=== PATIENT | male | born 1945 | race Caucasian/White ===

== ENCOUNTER 2017-03-22 22:59 | Inpatient (IN) | payer MEDICARE ==
[~2017-03-22] VITALS: Ht 172.7 cm; Wt 91.4 kg
[~2017-03-22 22:59] MED LIST: ALDACTONE25 MG PO; ASPIRIN EC LOW81 MG PO; ASPIRIN325 MG PO; ATENOLOL25 MG PO; ATENOLOL50 MG PO; CELEXA20 M1 PO; CITALOPRAM20 MG PO; COREG6.25 MG PO; COUMADIN3 MG PO; COUMADIN4 MG PO; FUROSEMIDE20 MG PO; K-DUR/KLOR-CON20 MEQ PO; K-TAB20 MEQ; LASIX 20 MG20 MG/TAB PO; LORTAB 5/3255 MG PO; RANITIDINE150 M1 PO; WALKER
--- NOTE | 2017-03-22 23:12 | NUR ---
SR GAY AT BEDSIDE.
[2017-03-22] MEDS ORDERED: WARFARIN3 MG PO (23:18)
--- NOTE | 2017-03-22 23:20 | NUR ---
FAMILY AT BEDSIDE.
--- NOTE | 2017-03-22 23:25 | NUR ---
PT AND FAMILY RELATED HISTORY OF AFIB.
--- NOTE | 2017-03-22 23:40 | NUR ---
VESSEL SCRAPPER CALLED FOR MELANIX.
[2017-03-23] VITALS (7 sets, daily range): BP systolic 115–159; BP diastolic 66–91
[2017-03-23 00:05] LABS: HEMATOCRIT 47.5 % (39.0-50.0); IMMATURE GRANULOCYTES 0.4 % (0.0-1.0); MEAN CELL VOLUME 94.6 fL CALC (80.0-100.0); MEAN CORPUSCULAR HGB 31.9 pG CALC (26.0-32.0); MEAN CORPUSCULAR HGB CONC 33.7 g/L CALC (32.0-36.0); NEUT# 5.3 thou/uL (1.82-7.42); RED BLOOD COUNT 5.02 mill/uL (4.70-6.10); RED CELL DISTRI WIDTH 13.2 % (11.5-15.5)
[2017-03-23 00:10] LABS: ALBUMIN 4.2 g/dL (3.2-5.0); ALKALINE PHOSPHATASE 101 u/l (38-126); ANION GAP 15 (6-22 (CALC)); BILIRUBIN, TOTAL 1.4 mg/dL (0.0-1.4); BUN 14 mg/dL (8-23); BUN/CREATININE RATIO 11 (12-20 (CALC)); CARBON DIOXIDE 28 mmol/l (22-30); CHLORIDE 109 mmol/l (95-108); CREATININE 1.3 mg/dL (0.7-1.3); GFR 54 ML/MIN (>=60 (CALC)); GFR FOR AFR.AMER. > 60 ML/MIN (>=60 (CALC)); GLUCOSE 98 mg/dL (82-115); POTASSIUM 4.1 mmol/l (3.5-5.1); SGOT/AST 18 u/l (19-48); SGPT/ALT 26 u/l (11-66); SODIUM 147 mmol/l (137-146); TOTAL PROTEIN 7.1 g/dL (6.3-8.2)
[2017-03-23 00:21] LABS: ACT PARTIAL THROMBO TIME 27.2 SECONDS (20.0-32.5); PROTHROMBIN TIME 11.2 SECONDS (9.0-12.5)
[2017-03-23 00:22] LABS: MYOGLOBIN 78 ng/mL (0 - 121)
--- NOTE | 2017-03-23 00:53 | NUR ---
PT UNABLE TO URINATE AT THIS TIME.
--- NOTE | 2017-03-23 02:30 | NUR ---
PT STOOD AT SIDE OF BED TO URINATE. 50CC DARK URINE VOIDED.
[2017-03-23 02:56] LABS: URINE BILIRUBIN - DIPSTICK NEGATIVE (NEGATIVE); URINE BLOOD DIPSTICK SMALL (NEGATIVE); URINE COLOR YELLOW; URINE GLUCOSE - DIPSTICK NEGATIVE (NEGATIVE); URINE KETONE NEGATIVE (NEGATIVE); URINE LEUK ESTERASE NEGATIVE (NEGATIVE); URINE NITRITE - DIPSTICK NEGATIVE (Negative); URINE PROTEIN - DIPSTICK NEGATIVE (NEG-TRACE); URINE SPECIFIC GRAVITY >=1.030; URINE UROBILINOGEN - DIPSTICK 0.2 E.U./dL (0.2)
--- NOTE | 2017-03-23 03:00 | NUR ---
PT INFORMED OF ADMISSION.
[2017-03-23 03:18] LABS: URINE BACTERIA FEW hpf; URINE CLARITY CLEAR
--- NOTE | 2017-03-23 03:30 | NUR ---
REPORT CALLED TO
--- NOTE | 2017-03-23 03:40 | NUR ---
PT TO 280 WITH RN ON TELE.
--- NOTE | 2017-03-23 05:32 | NUR ---
PATIENT ADMIITED FROM ER VIA STRETCHER WITH ER STAFF IN ATTENDANCE. PATIENT MAX ASSIST TO TRANSFER TO BED. PATIENT IS AWAKE ALERT AND ORIENTEDX3. PATIENT IS SLOW IN HIS VERBAL RESPONSES. PATIENT WITH H/O CVA WITH LEFT SIDED WEAKNESS. PATIENT ADMITTED FOR A-FIB AND CHF. PATIENT DENIES ANY ALLERGIES AND STATES THAT HE LIVES WITH HIS DAUGHTER SAMIR. HAS NOT BEEN TAKING MEDS FOR OVER A MONTH-RX RAN OUT. PATIENT WITH HEP LOCK TO LEFT AC AND APPEARS HEALTHY. RIGHT LE IS RED AND SWOLLEN. STATES THAT HIS LAST BM WAS ON WEDNESDAY 03/21 AND WEARS BREIF FOR OCC URINE ACCIDENTS. LUNGS ARE CLEAR. AND HR IS VERY IRREGULAR. TELE MONITOR IN PLACE. PATIENT ORIENTED TO ROOM AND SURROUNDINGS. INSTRUCTED ON USE OF NURSE CALL LIGHT AND TV REMOTE. CALLLIGHT IN REACH. WILL CONT TO MONITOR.
--- NOTE | 2017-03-23 05:41 | NUR ---
PATIENT ASSISTED TO BR WITH SHUFFLING GAIT AND ASSIST OF STAFF. VOIDED 125CC OF HERSON URINE. ASSISTED BACK TO BED. BED ALARM IN PLACE FOR PATIENT SAFETY. SAFETY PRECAUTIONS REINFORCED. CALL LIGHT IN REACH. WILL CONT TO MONITOR.
--- NOTE | 2017-03-23 08:00 | NUR ---
PT AROUSED EASILY TO VERBAL STIMULI; A/O X3; DENIES PAIN; ASSISTED WITH BREAKFAST SET UP; CALL LOWE WITHIN REACH; WILL CONTINUE TO MONITOR.
[2017-03-23 09:48] LABS: CHOLESTEROL HDL RATIO 5.4 (<4.4 (CALC))
[2017-03-23 10:05] LABS: INTERNATIONAL NORMALIZED RATIO 1.1 RATIO (0.7-1.3); PROTHROMBIN TIME 11.6 SECONDS (9.0-12.5)
--- NOTE | 2017-03-23 12:30 | NUR ---
PT'S DAUGHTER CAME TO GET THIS NURSE; STATES PT IS HAVING SOB; PT DENIES SOB AT THIS TIME; PT WAS ASSISTED TO BED BY DAUGHTER AND HAD "TROUBLE CATCHING MY BREATH" BREATHING TECHNIQUES DISCUSSED WITH PT. IRENE MENENDEZ, IN TO DISCUSS PLAN OF CARE; CALL LOWE WITHIN REACH; WILL CONTINUE TO MONITOR.
--- NOTE | 2017-03-23 17:00 | NUR ---
DR. ELLIS IN TO SEE PT
--- NOTE | 2017-03-23 18:15 | NUR ---
PT TOLERATING DINNER WELL; NO COMPLAINTS VOICED; CALL LOWE WITHIN REACH; WILL CONTINUE TO MONITOR.
--- NOTE | 2017-03-23 19:30 | NUR ---
PATIENT RESTING IN BED WITH DAUGHTER AT BEDSIDE. PATIENT AWAKE ALERT AND ORIENTEDX3. CONT TO BE SLOW WITH VERBAL RESPONCES. NO COMPLAINS AT THIS TIME. HEP LOCK TO LEFT AC INTACT AND APPEARS HEALTHY AT THIS TIME. CALL LIGHT IN REACH. SAFETY PRECAUTIONS REINFORCED. WILL CONT TO MONITOR.
--- NOTE | 2017-03-24 00:12 | NUR ---
PATIENT APPEARS SLEEPING AT THIS TIME WITH EYES CLOSED AND HOB ELEVATED. CALL LIGHT IN REACH. WILL CONT TO MONITOR.
--- NOTE | 2017-03-24 04:29 | NUR ---
PATIENT ASSISTED TO BR USE CANE-SLOW SHUFFLING UNSTEADY GAIT. VOIDED 100CC OF HERSON URINE. SMALL BM STAIN OF BREIF-PERIANAL CARE WITH SOAP AND WATER DONE. NO SKIN ISSUES AT THIS TIME. ASSISTED BACK TO BED AND ASSITED WITH POSITIONING. SOB WITH EXHERSION. NO COMPLAINTS. CALL LIGHT IN REACH. WILL CONT TO MONITOR.
[2017-03-24 05:24] VITALS: BP 113/74
[2017-03-24 05:33] LABS: HEMATOCRIT 42.2 % (39.0-50.0); HEMOGLOBIN 14.3 g/dl (14.0-18.0); IMMATURE GRANULOCYTES 0.5 % (0.0-1.0); MEAN CELL VOLUME 93.6 fL CALC (80.0-100.0); MEAN CORPUSCULAR HGB 31.7 pG CALC (26.0-32.0); MEAN CORPUSCULAR HGB CONC 33.9 g/L CALC (32.0-36.0); NEUT# 4.07 thou/uL (1.82-7.42); RED BLOOD COUNT 4.51 mill/uL (4.70-6.10); RED CELL DISTRI WIDTH 13.1 % (11.5-15.5)
[2017-03-24 05:55] LABS: ANION GAP 13 (6-22 (CALC)); BUN 14 mg/dL (8-23); BUN/CREATININE RATIO 11 (12-20 (CALC)); CALCIUM 8.5 mg/dL (8.4-10.2); CARBON DIOXIDE 23 mmol/l (22-30); CHLORIDE 112 mmol/l (95-108); CREATININE 1.3 mg/dL (0.7-1.3); GFR 54 ML/MIN (>=60 (CALC)); GFR FOR AFR.AMER. > 60 ML/MIN (>=60 (CALC)); GLUCOSE 92 mg/dL (82-115); POTASSIUM 4.2 mmol/l (3.5-5.1); SODIUM 143 mmol/l (137-146)
[2017-03-24 06:19] LABS: INTERNATIONAL NORMALIZED RATIO 1.1 RATIO (0.7-1.3); PROTHROMBIN TIME 11.9 SECONDS (9.0-12.5)
--- NOTE | 2017-03-24 07:40 | NUR ---
REPORT RECEIVED FROM NIGHT NURSE, UPON ENTERING ROOM PT.IS FOUND SITTING IN RECLINER W/LAW FIRM ADMINISTRATOR ASSISTING HIM TO REPOSTION. C/O SHORTNESS OF BREATH UPON AMBULATION. PT.V/S ASSESSED AND O2 SAT 90%, PT.PLACED ON O2@2L. CALL LIGHT IS W/IN REACH, DENIES ANY OTHER NEEDS AT THIS TIME.
[2017-03-24 08:00] VITALS: BP 132/87
--- NOTE | 2017-03-24 10:18 | NUR ---
PT.MEDICATED ORDERS PROVIDE, PT.ASSESSED LOWER LUNGS DIM/UPPER CLEAR, NEURO'S INTACT, PT.REPORTS LAST BM "LAST WEDNESDAY I THINK," LOC TO SELF, , LOCATION, BUT NOT YEAR/DATE. PT.HAS ULCER WOUND TO BACK OF LEFT CALF, SHON HARVEY AND ARE IN ROOM TO ASSESS AND DISCUSS POC W/PT. I WILL F/UP FURTHER WITH WOUND PICTURES.
[2017-03-24 11:20] VITALS: BP 136/87
[2017-03-24 15:32] VITALS: BP 135/92
--- NOTE | 2017-03-24 17:44 | NUR ---
WALKING BY ROOM I HEAR DAUGHTER YELLING AT PT. I ENTER THE ROOM, SHE IS OUTSIDE THE BATHROOM DOOR WITH DOOR OPEN TALKING WITH RAISED VOICE TO PT TO "STOP PEEING ON YOURSELF AND FLOOR DAD." STATED, "WHAT IS HE DOING IN THERE BY HIMSELF?" SHE REPLIED, "I WAS HELPING HIM." I ENTERED THE RESTROOM, PT.WAS STANDING OVER TOILET NOT MOVING, URINE WAS ON FLOOR ALL AROUND PT, HIS GOWN HAD URINE ON IT. I PROCEEDED TO HELP HIM FINISH, ASSISTED HIM TO SHOWER SEAT, PT.WAS CLEANED OF URINE, NEW GOWN, SOCKS AND ASSISTED BACK TO SIDE OF BED TO SIT UP AND EAT HIS SUPPER THAT JUST ARRIVED. DAUGHTER STATED, "HE IS SO STUBBORN." DAUGHTER LEFT AT BS
[2017-03-24 18:50] VITALS: BP 134/81
--- NOTE | 2017-03-24 20:00 | NUR ---
PATIENT RESTING IN BED AT THIS TIME WITH HOB ELEVATED-ALERT AND ORIENTEDX3. PATIENT WITH NO COMPLAINTS AT THIS TIME. NEEDS ASSISTANCE TO GO TO THE BR-UNSTEADY ON FEET WITH WALKER. VOIDING QS YELLOW URINE IN URINAL. HEP LOCK TO LEFT FOREARM-SITE APPEARS HEALTHY AT THIS TIME. SAFETY PRECAUTIONS REINFORCED. CALL LIGHT IN REACH. WILL CONT TO MONITOR.
[2017-03-24 23:48] VITALS: BP 156/69
--- NOTE | 2017-03-25 | NUR ---
PATIENT APPEARS SLEEPING AT THIS TIME WITH HOB ELEVATED AND EYES CLOSED. CALL LIGHT IN REACH. WILL CONT TO MONITOR.
--- NOTE | 2017-03-25 04:00 | NUR ---
PATIENT APPEARS SLEEPING AT THIS TIME WITH HOB ELEVATED AND EYES CLOSED.CALL LIGHT IN REACH. WILL CONT TO MONITOR.
[2017-03-25 04:45] VITALS: BP 135/76
[2017-03-25 05:46] LABS: HEMATOCRIT 44.6 % (39.0-50.0); HEMOGLOBIN 15.1 g/dl (14.0-18.0); IMMATURE GRANULOCYTES 0.5 % (0.0-1.0); MEAN CELL VOLUME 93.7 fL CALC (80.0-100.0); MEAN CORPUSCULAR HGB 31.7 pG CALC (26.0-32.0); MEAN CORPUSCULAR HGB CONC 33.9 g/L CALC (32.0-36.0); NEUT# 8.73 thou/uL (1.82-7.42); RED BLOOD COUNT 4.76 mill/uL (4.70-6.10); RED CELL DISTRI WIDTH 12.8 % (11.5-15.5)
[2017-03-25 05:58] LABS: INTERNATIONAL NORMALIZED RATIO 1.2 RATIO (0.7-1.3)
[2017-03-25 06:11] LABS: ANION GAP 15 (6-22 (CALC)); BUN 15 mg/dL (8-23); BUN/CREATININE RATIO 14 (12-20 (CALC)); CALCIUM 9.1 mg/dL (8.4-10.2); CARBON DIOXIDE 21 mmol/l (22-30); CHLORIDE 112 mmol/l (95-108); CREATININE 1.1 mg/dL (0.7-1.3); GFR > 60 ML/MIN (>=60 (CALC)); GFR FOR AFR.AMER. > 60 ML/MIN (>=60 (CALC)); GLUCOSE 139 mg/dL (82-115); MAGNESIUM 1.9 mg/dL (1.6-2.3); POTASSIUM 4.6 mmol/l (3.5-5.1); SODIUM 143 mmol/l (137-146)
--- NOTE | 2017-03-25 07:16 | NUR ---
REPORT RECEIVED FROM NIGHT NURSE, PT.IN RECLINER W/BLANKETS COVERING AND FEET ELEVATED. BST IN FRONT W/CALL LIGHT IN PLACE. PT.REPORTS THAT HE SLEPT BETTER LAST NIGHT AND IS AWAITING BREAKFAST. WILL F/UP WITH V/S, AM MEDICATIONS AND ASSESSMENT.
[2017-03-25 07:35] VITALS: BP 105/76
--- NOTE | 2017-03-25 08:37 | NUR ---
ED CALLED REGARDING ELEVATED HR OF 119 - 130'S. NOTIFIED SHON HARVEY AND MEDICATED W/AM MEDICATIONS. WILL MARCIO PT.'S RESPONSE TO MEDICATIONS ADMINISTERED. PT.IS ASYMPTOMATIC, SITTING IN RECLINER EATING BREAKFAST.
[2017-03-25 11:20] VITALS: BP 100/60
--- NOTE | 2017-03-25 13:10 | NUR ---
PT.IS AMBULATING HALLWAY WITH P.T. USING WALKER AND ON O2. P.T. REPORTS THAT UPON BED TRANSFERS ON ROOM AIR O2 SATS DROPPED IN UPPER 70'S.
--- NOTE | 2017-03-25 14:01 | NUR ---
PT WAS SEEN SUPINE ON BED. ABLE TO SIT UP WITH MOD. INDEP. AND VERBAL CUEING. SIT TO STAND WITH WALKER AND MIN A WITH 3 ATTEMPTS. PT WAS UNSTEADY DURING THE FIRST 5 SEC. OF STANDING UP WITH WALKER AND HAD TO BE STABILIZED. PT WAS ABLE TO AMBULATE IN THE HALLWAY ~45 FT. X 2 WITH RW AND CGA. PORTABLE O2 VIA NASAL CANNULA SET AT 3L WAS ALSO USED DURING AMB. PT'S SPO2 REMAINED BETWEEN 97-99% WITH O2. HOWEVER, WHEN PT PERFORMED BED MOB ON ROOM AIR, SPO2 DESATURATED TO 75%. ASSISTED PT BACK TO BED, REATTACHED O2 VIA NASAL CANNULA, SPO2 RETURNED TO 99%. NO ADVERSE RXNS NOTED OR REPORTED. CALL LOWE WITHIN REACH.
[2017-03-25 15:43] VITALS: BP 100/68
[2017-03-25 19:35] VITALS: BP 145/67
--- NOTE | 2017-03-25 20:20 | NUR ---
PT USING CALL LIGHT FOR ASSISTANCE, ASSISTED TO STAND ON SIDE OF BED AND USING URINAL, NOTICED TO BE WEAK, VOIDING 100CC YELLOW URINE, THEN BACK TO BED. A/O X3, RESPIRAITONS EVEN AND UNLAORED. BED ALARM APPLIED TO PREVENT FALL DUE TO WEAKNESS. WILL CONTINUE TO MONITOR. PO FLUIDS IN REACH.
[2017-03-25 23:55] VITALS: BP 124/85
--- NOTE | 2017-03-26 | NUR ---
OOB USING URINAL WITH STANDBY ASSISTANCE, VOIND 100ML YELLOW URINE THEN BACK TO BED. CALL LIGHT IN REACH.
--- NOTE | 2017-03-26 03:00 | NUR ---
RESTING WITH EYES CLOSED, RESPIRATIONS EVEN AND UNLABORED.
[2017-03-26 03:45] VITALS: BP 146/86
[2017-03-26 05:43] LABS: HEMATOCRIT 41.4 % (39.0-50.0); IMMATURE GRANULOCYTES 0.8 % (0.0-1.0); MEAN CELL VOLUME 94.5 fL CALC (80.0-100.0); MEAN CORPUSCULAR HGB CONC 33.8 g/L CALC (32.0-36.0); NEUT# 13.31 thou/uL (1.82-7.42); RED BLOOD COUNT 4.38 mill/uL (4.70-6.10); RED CELL DISTRI WIDTH 13.2 % (11.5-15.5)
[2017-03-26 06:03] LABS: ANION GAP 15 (6-22 (CALC)); BUN 24 mg/dL (8-23); BUN/CREATININE RATIO 19 (12-20 (CALC)); CALCIUM 8.7 mg/dL (8.4-10.2); CARBON DIOXIDE 22 mmol/l (22-30); CHLORIDE 111 mmol/l (95-108); CREATININE 1.3 mg/dL (0.7-1.3); GFR 54 ML/MIN (>=60 (CALC)); GFR FOR AFR.AMER. > 60 ML/MIN (>=60 (CALC)); GLUCOSE 127 mg/dL (82-115); MAGNESIUM 2.1 mg/dL (1.6-2.3); POTASSIUM 4.8 mmol/l (3.5-5.1); SODIUM 144 mmol/l (137-146)
--- NOTE | 2017-03-26 06:20 | NUR ---
OOB TO BATHROOM USING WALKER, SLOW STEADY GAIT. VOIDING IN COMMODE AND PASSING SMALL FORMED BROWN BM. BACK TO BED. CALL LIGHT IN REACH. PO FLUIDS IN REACH.
[2017-03-26 06:43] LABS: INTERNATIONAL NORMALIZED RATIO 1.4 RATIO (0.7-1.3); PROTHROMBIN TIME 16.1 SECONDS (9.0-12.5)
--- NOTE | 2017-03-26 07:00 | NUR ---
SHIFT CHANGE REPORT FROM MELVIN, ELMER AWAKE AND ALERT RESTING IN BED, SPEECH VERY SOFT AND COARSE AND PT MOSTLY USES BODY LANGUAGE TO COMMUNICATE SINGLE WORD RESPONSES. DENIES PAIN AT THIS TIME, TELE MONITOR IN PLACE, CALL LOWE IN REACH.
[2017-03-26 08:54] VITALS: BP 109/63
[2017-03-26 11:20] VITALS: BP 117/77
[2017-03-26] MEDS ORDERED: RANITIDINE150 M1 PO (11:23)
[2017-03-26] MEDS ORDERED: COREG6.25 MG PO (11:23)
[2017-03-26] MEDS ORDERED: ALDACTONE25 MG PO (11:23)
[2017-03-26] MEDS ORDERED: PREDNISONE10 MG PO (11:23)
[2017-03-26] MEDS ORDERED: WARFARIN SODIUM5 MG PO (11:23)
[2017-03-26] MEDS ORDERED: SYNTHROID25 MCG PO (11:23)
[2017-03-26] MEDS ORDERED: CITALOPRAM20 MG PO (11:23)
[2017-03-26] MEDS ORDERED: LIPITOR20 MG PO (11:23)
[2017-03-26] MEDS ORDERED: IPRATROPIU0.5 MG/3 M IN (11:23)
--- NOTE | 2017-03-26 13:59 | NUR ---
SPOKE WITH PT PRIOR TO D/C TO DISCUSS NEW MEDS/CHANGE IN MEDS. DISCUSSED INCREASE IN WARFARIN DOSE, NEW MEDS LIPITOR AND LEVOTHYROXINE, AND POSSIBLE SIDE EFFECTS OF PREDNISONE SUCH INCREASED APPETITE AND INSOMNIA. PT SEEMED DAZED/CONFUSED, BUT SHOOK HIS HEAD YES WHEN I ASKED IF HE UNDERSTOOD. PT SHOOK HIS HEAD NO WHEN I ASKED IF HE HAD ANY FURTHER QUESTIONS.
--- NOTE | 2017-03-26 14:11 | NUR ---
REPORT CALLED TO AKBAR AT [facility]
--- NOTE | 2017-03-26 14:57 | NUR ---
Discharge instructions given. Patient verbalizes understanding of same. Discharged in good condition via Wheelchair to [facility] with family. All belongings sent with pt.
== END 2017-03-26 14:44 | DRG 309 ==
LOC: ED 22:59 → ED-I 03-23 02:05 → ED 03-23 03:13 → MS2 03-23 03:14
PROVIDERS: Emergency Medicine; Nurse Practitioner Family; ADMIT Internal Medicine; ATTEND Internal Medicine
DX: I48.2 Chronic atrial fibrillation (principal); N17.9 Acute kidney failure, unspecified; I11.0 Hypertensive heart disease with heart failure; I50.22 Chronic systolic (congestive) heart failure; J44.1 Chronic obstructive pulmonary disease with (acute) exacerbation; T74.01XA Adult neglect or abandonment, confirmed, initial encounter; I65.21 Occlusion and stenosis of right carotid artery; E86.0 Dehydration; F32.9 Major depressive disorder, single episode, unspecified; R41.3 Other amnesia; E66.9 Obesity, unspecified; E78.5 Hyperlipidemia, unspecified; R79.1 Abnormal coagulation profile; E03.9 Hypothyroidism, unspecified; R53.81 Other malaise; Z87.891 Personal history of nicotine dependence; Z85.819 Personal history of malignant neoplasm of unspecified site of lip, oral cavity, and pharynx; Z86.73 Personal history of transient ischemic attack (TIA), and cerebral infarction without residual deficits; Z91.14 Patient's other noncompliance with medication regimen; Z87.820 Personal history of traumatic brain injury; Z74.01 Bed confinement status; Z68.31 Body mass index [BMI] 31.0-31.9, adult
CPT/HCPCS: J1650

== ENCOUNTER 2017-09-14 14:33 | Emergency (ER) | payer MEDICARE ==
[~2017-09-14] VITALS: Ht 172.7 cm; Wt 90.9 kg
[~2017-09-14 14:33] MED LIST changes: +IPRATROPIU0.5 MG/3 M IN; +LIPITOR20 MG PO; +PREDNISONE10 MG PO; +SYNTHROID25 MCG PO; +WARFARIN SODIUM5 MG PO; +WARFARIN3 MG PO
[2017-09-14 15:51] VITALS: BP 129/84
== END 2017-09-14 15:51 | disposition home or self-care (01) ==
LOC: ED 14:33
DX: S93.491A Sprain of other ligament of right ankle, initial encounter (principal); M25.572 Pain in left ankle and joints of left foot; S60.512A Abrasion of left hand, initial encounter; S80.212A Abrasion, left knee, initial encounter; W18.39XA Other fall on same level, initial encounter; Y93.01 Activity, walking, marching and hiking; Y92.009 Unspecified place in unspecified non-institutional (private) residence as the place of occurrence of the external cause

== ENCOUNTER 2018-07-12 20:05 | Observation (INO) | payer MEDICARE ==
[~2018-07-12] VITALS: Ht 172.7 cm; Wt 98.2 kg
[2018-07-12 20:42] LABS: HEMOGLOBIN 15.1 g/dl (14.0-18.0); IMMATURE GRANULOCYTES 0.3 % (0.0-5.0); MEAN CELL VOLUME 96.2 fL CALC (80.0-100.0); MEAN CORPUSCULAR HGB 32.3 pG CALC (26.0-32.0); MEAN CORPUSCULAR HGB CONC 33.6 g/L CALC (32.0-36.0); NEUT# 4.67 thou/uL (1.82-7.42); RED BLOOD COUNT 4.68 mill/uL (4.70-6.10); RED CELL DISTRI WIDTH 12.6 % (11.5-15.5)
[2018-07-12 20:53] LABS: INTERNATIONAL NORMALIZED RATIO 1.2 RATIO (0.7-1.3); PROTHROMBIN TIME 12.5 SECONDS (9.0-12.5)
[2018-07-12 20:54] LABS: ALBUMIN 3.9 g/dL (3.2-5.0); ALKALINE PHOSPHATASE 104 u/l (38-126); ANION GAP 13 (6-22 (CALC)); BILIRUBIN, TOTAL 0.6 mg/dL (0.0-1.4); BUN 17 mg/dL (8-23); BUN/CREATININE RATIO 15 (12-20 (CALC)); CARBON DIOXIDE 27 mmol/l (22-30); CHLORIDE 105 mmol/l (95-108); CREATININE 1.2 mg/dL (0.7-1.3); GFR 59 ML/MIN (>=60 (CALC)); GFR FOR AFR.AMER. > 60 ML/MIN (>=60 (CALC)); POTASSIUM 4.2 mmol/l (3.5-5.1); SGOT/AST 19 u/l (19-48); SODIUM 141 mmol/l (137-146); TOTAL PROTEIN 6.8 g/dL (6.3-8.2)
[2018-07-12 21:06] LABS: MYOGLOBIN 114 ng/mL (0 - 121)
[2018-07-12] MEDS ORDERED: WARFARIN SODIUM4 MG PO (22:26)
[2018-07-12] MEDS ORDERED: LEVOTHYROXIN25 MC1 PO (22:27)
[2018-07-12] MEDS ORDERED: ATORVASTATIN CA20 MG PO (22:27)
[2018-07-12] MEDS ORDERED: FUROSEMIDE20 MG PO (22:28)
[2018-07-12] MEDS ORDERED: CELEXA20 MG PO (22:28)
[2018-07-12] MEDS ORDERED: RANITIDINE HCL150 MG PO (22:29)
[2018-07-12 22:33] LABS: URINE BILIRUBIN - DIPSTICK NEGATIVE (NEGATIVE); URINE BLOOD DIPSTICK SMALL (NEGATIVE); URINE COLOR YELLOW; URINE GLUCOSE - DIPSTICK NEGATIVE (NEGATIVE); URINE KETONE NEGATIVE (NEGATIVE); URINE LEUK ESTERASE NEGATIVE (NEGATIVE); URINE NITRITE - DIPSTICK NEGATIVE (Negative); URINE PH 5.5 (4.5-8.0); URINE PROTEIN - DIPSTICK NEGATIVE (NEG-TRACE); URINE SPECIFIC GRAVITY <=1.005
[2018-07-12 22:48] LABS: URINE RBC 0-2 RBC/hpf (0-5); URINE WBC 0-2 WBC/hpf (0-5)
[2018-07-12 23:28] VITALS: BP 123/83
[2018-07-13 04:00] VITALS: BP 125/74
[2018-07-13 06:09] LABS: HEMATOCRIT 43.7 % (39.0-50.0); IMMATURE GRANULOCYTES 0.3 % (0.0-5.0); MEAN CORPUSCULAR HGB 32.3 pG CALC (26.0-32.0); MEAN CORPUSCULAR HGB CONC 34.3 g/L CALC (32.0-36.0); NEUT# 5.1 thou/uL (1.82-7.42); RED BLOOD COUNT 4.65 mill/uL (4.70-6.10); RED CELL DISTRI WIDTH 12.5 % (11.5-15.5)
[2018-07-13 06:23] LABS: ALBUMIN 3.5 g/dL (3.2-5.0); ALKALINE PHOSPHATASE 99 u/l (38-126); AMYLASE 77 u/l (30-110); ANION GAP 12 (6-22 (CALC)); BILIRUBIN, TOTAL 0.7 mg/dL (0.0-1.4); BUN 15 mg/dL (8-23); BUN/CREATININE RATIO 15 (12-20 (CALC)); CARBON DIOXIDE 24 mmol/l (22-30); CHLORIDE 108 mmol/l (95-108); GFR > 60 ML/MIN (>=60 (CALC)); GFR FOR AFR.AMER. > 60 ML/MIN (>=60 (CALC)); LIPASE 279 u/l (23-300); MAGNESIUM 1.8 mg/dL (1.6-2.3); POTASSIUM 3.9 mmol/l (3.5-5.1); SGOT/AST 16 u/l (19-48); SODIUM 140 mmol/l (137-146)
[2018-07-13 08:18] VITALS: BP 144/59
[2018-07-13 15:31] VITALS: BP 101/80
== END 2018-07-13 16:30 | disposition home or self-care (01) ==
LOC: ED 20:05 → ED-I 21:28 → ED 21:58 → MS2 21:59
PROVIDERS: Emergency Medicine; ADMIT Internal Medicine Nephrology; ATTEND Internal Medicine Nephrology
DX: R04.0 Epistaxis (principal); S09.90XA Unspecified injury of head, initial encounter; I69.954 Hemiplegia and hemiparesis following unspecified cerebrovascular disease affecting left non-dominant side; I48.2 Chronic atrial fibrillation; E03.9 Hypothyroidism, unspecified; F41.1 Generalized anxiety disorder; F32.9 Major depressive disorder, single episode, unspecified; I11.0 Hypertensive heart disease with heart failure; I50.9 Heart failure, unspecified; E78.5 Hyperlipidemia, unspecified; W06.XXXA Fall from bed, initial encounter; Y92.003 Bedroom of unspecified non-institutional (private) residence as the place of occurrence of the external cause; Z87.891 Personal history of nicotine dependence; Z79.01 Long term (current) use of anticoagulants; Z85.819 Personal history of malignant neoplasm of unspecified site of lip, oral cavity, and pharynx; Z86.79 Personal history of other diseases of the circulatory system; R55 Syncope and collapse
CPT/HCPCS: G0378

== ENCOUNTER 2019-01-06 10:28 | Inpatient (IN) | payer MEDICARE ==
[~2019-01-06] VITALS: Ht 172.7 cm; Wt 102.5 kg
[2019-01-06] VITALS (8 sets, daily range): BP systolic 85–128; BP diastolic 56–84
[~2019-01-06 10:28] MED LIST changes: +ATORVASTATIN CA20 MG PO; +CELEXA20 MG PO; +LEVOTHYROXIN25 MC1 PO; +RANITIDINE HCL150 MG PO; +WARFARIN SODIUM4 MG PO
[2019-01-06 11:06] LABS: HEMATOCRIT 41.6 % (39.0-50.0); HEMOGLOBIN 13.5 g/dl (14.0-18.0); IMMATURE GRANULOCYTES 0.4 % (0.0-5.0); MEAN CELL VOLUME 95.9 fL CALC (80.0-100.0); MEAN CORPUSCULAR HGB 31.1 pG CALC (26.0-32.0); MEAN CORPUSCULAR HGB CONC 32.5 g/L CALC (32.0-36.0); NEUT# 7.27 thou/uL (1.82-7.42); RED BLOOD COUNT 4.34 mill/uL (4.70-6.10)
[2019-01-06 11:21] LABS: ALBUMIN 3.6 g/dL (3.2-5.0); ALKALINE PHOSPHATASE 103 u/l (38-126); ANION GAP 9 (6-22 (CALC)); BILIRUBIN, TOTAL 1.8 mg/dL (0.0-1.4); BUN 16 mg/dL (8-23); BUN/CREATININE RATIO 16 (12-20 (CALC)); CARBON DIOXIDE 25 mmol/l (22-30); CHLORIDE 112 mmol/l (95-108); GFR > 60 ML/MIN (>=60 (CALC)); GFR FOR AFR.AMER. > 60 ML/MIN (>=60 (CALC)); LIPASE 100 u/l (23-300); SGOT/AST 24 u/l (19-48); SODIUM 141 mmol/l (137-146); TOTAL PROTEIN 6.9 g/dL (6.3-8.2)
[2019-01-06 11:22] LABS: INTERNATIONAL NORMALIZED RATIO 1.4 RATIO (0.7-1.3); PROTHROMBIN TIME 14.3 SECONDS (9.0-12.5)
[2019-01-06 14:08] LABS: URINE BILIRUBIN - DIPSTICK NEGATIVE (NEGATIVE); URINE BLOOD DIPSTICK SMALL (NEGATIVE); URINE COLOR YELLOW; URINE GLUCOSE - DIPSTICK NEGATIVE (NEGATIVE); URINE KETONE NEGATIVE (NEGATIVE); URINE NITRITE - DIPSTICK NEGATIVE (Negative); URINE PROTEIN - DIPSTICK NEGATIVE (NEG-TRACE); URINE SPECIFIC GRAVITY 1.015
[2019-01-06 14:09] LABS: URINE LEUK ESTERASE SMALL (NEGATIVE)
[2019-01-06 14:12] LABS: URINE BACTERIA FEW hpf; URINE RBC 0-2 RBC/hpf (0-5)
[2019-01-07] VITALS (10 sets, daily range): BP systolic 93–131; BP diastolic 55–80
[2019-01-07 05:17] LABS: HEMATOCRIT 39.1 % (39.0-50.0); HEMOGLOBIN 13.1 g/dl (14.0-18.0); MEAN CELL VOLUME 94.4 fL CALC (80.0-100.0); MEAN CORPUSCULAR HGB 31.6 pG CALC (26.0-32.0); MEAN CORPUSCULAR HGB CONC 33.5 g/L CALC (32.0-36.0); RED BLOOD COUNT 4.14 mill/uL (4.70-6.10); RED CELL DISTRI WIDTH 13.6 % (11.5-15.5)
[2019-01-07 05:33] LABS: INTERNATIONAL NORMALIZED RATIO 1.9 RATIO (0.7-1.3); PROTHROMBIN TIME 19.4 SECONDS (9.0-12.5)
[2019-01-07 05:39] LABS: ANION GAP 10 (6-22 (CALC)); BUN 18 mg/dL (8-23); BUN/CREATININE RATIO 19 (12-20 (CALC)); CARBON DIOXIDE 23 mmol/l (22-30); CHLORIDE 112 mmol/l (95-108); CREATININE 0.9 mg/dL (0.7-1.3); GFR > 60 ML/MIN (>=60 (CALC)); GFR FOR AFR.AMER. > 60 ML/MIN (>=60 (CALC)); POTASSIUM 4.2 mmol/l (3.5-5.1); SODIUM 140 mmol/l (137-146)
[2019-01-08] VITALS (9 sets, daily range): BP systolic 103–138; BP diastolic 56–89
[2019-01-08 05:47] LABS: HEMOGLOBIN 13.3 g/dl (14.0-18.0); IMMATURE GRANULOCYTES 0.6 % (0.0-5.0); MEAN CELL VOLUME 96.5 fL CALC (80.0-100.0); MEAN CORPUSCULAR HGB 31.3 pG CALC (26.0-32.0); MEAN CORPUSCULAR HGB CONC 32.4 g/L CALC (32.0-36.0); NEUT# 14.06 thou/uL (1.82-7.42); RED BLOOD COUNT 4.25 mill/uL (4.70-6.10); RED CELL DISTRI WIDTH 14.2 % (11.5-15.5)
[2019-01-08 05:48] LABS: INTERNATIONAL NORMALIZED RATIO 1.8 RATIO (0.7-1.3); PROTHROMBIN TIME 18.7 SECONDS (9.0-12.5)
[2019-01-08 05:53] LABS: BUN 21 mg/dL (8-23); BUN/CREATININE RATIO 18 (12-20 (CALC)); CHLORIDE 108 mmol/l (95-108); CREATININE 1.2 mg/dL (0.7-1.3); GFR 59 ML/MIN (>=60 (CALC)); GFR FOR AFR.AMER. > 60 ML/MIN (>=60 (CALC)); POTASSIUM 3.9 mmol/l (3.5-5.1); SODIUM 143 mmol/l (137-146)
[2019-01-08 06:06] LABS: ANION GAP 11 (6-22 (CALC)); CARBON DIOXIDE 28 mmol/l (22-30)
[2019-01-09 04:12] VITALS: BP 103/63
[2019-01-09 05:28] LABS: ANION GAP 11 (6-22 (CALC)); BUN 24 mg/dL (8-23); BUN/CREATININE RATIO 23 (12-20 (CALC)); CARBON DIOXIDE 23 mmol/l (22-30); CHLORIDE 112 mmol/l (95-108); GFR > 60 ML/MIN (>=60 (CALC)); GFR FOR AFR.AMER. > 60 ML/MIN (>=60 (CALC)); POTASSIUM 4.5 mmol/l (3.5-5.1); SODIUM 142 mmol/l (137-146)
[2019-01-09 05:29] LABS: INTERNATIONAL NORMALIZED RATIO 1.9 RATIO (0.7-1.3); PROTHROMBIN TIME 19.4 SECONDS (9.0-12.5)
[2019-01-09 05:36] LABS: HEMATOCRIT 39.3 % (39.0-50.0); HEMOGLOBIN 12.5 g/dl (14.0-18.0); IMMATURE GRANULOCYTES 0.3 % (0.0-5.0); MEAN CELL VOLUME 96.8 fL CALC (80.0-100.0); MEAN CORPUSCULAR HGB 30.8 pG CALC (26.0-32.0); MEAN CORPUSCULAR HGB CONC 31.8 g/L CALC (32.0-36.0); NEUT# 8.14 thou/uL (1.82-7.42); RED BLOOD COUNT 4.06 mill/uL (4.70-6.10); RED CELL DISTRI WIDTH 14.1 % (11.5-15.5)
[2019-01-09 08:49] VITALS: BP 133/86
[2019-01-09 11:05] VITALS: BP 109/63
[2019-01-09 16:12] VITALS: BP 131/88
[2019-01-09 19:05] VITALS: BP 92/58
[2019-01-10] VITALS (7 sets, daily range): BP systolic 102–142; BP diastolic 68–82
[2019-01-10 02:12] LABS: HEMATOCRIT 36.9 % (39.0-50.0); HEMOGLOBIN 11.9 g/dl (14.0-18.0); MEAN CELL VOLUME 94.9 fL CALC (80.0-100.0); MEAN CORPUSCULAR HGB 30.6 pG CALC (26.0-32.0); MEAN CORPUSCULAR HGB CONC 32.2 g/L CALC (32.0-36.0); RED BLOOD COUNT 3.89 mill/uL (4.70-6.10); RED CELL DISTRI WIDTH 14.2 % (11.5-15.5)
[2019-01-10 02:32] LABS: ANION GAP 10 (6-22 (CALC)); BUN 24 mg/dL (8-23); BUN/CREATININE RATIO 24 (12-20 (CALC)); CARBON DIOXIDE 24 mmol/l (22-30); CHLORIDE 111 mmol/l (95-108); GFR > 60 ML/MIN (>=60 (CALC)); GFR FOR AFR.AMER. > 60 ML/MIN (>=60 (CALC)); POTASSIUM 3.6 mmol/l (3.5-5.1); SODIUM 142 mmol/l (137-146)
[2019-01-10 02:33] LABS: PROTHROMBIN TIME 20.5 SECONDS (9.0-12.5)
[2019-01-11 04:30] VITALS: BP 121/76
[2019-01-11 05:40] LABS: HEMATOCRIT 36.6 % (39.0-50.0); HEMOGLOBIN 11.9 g/dl (14.0-18.0); MEAN CELL VOLUME 94.8 fL CALC (80.0-100.0); MEAN CORPUSCULAR HGB 30.8 pG CALC (26.0-32.0); MEAN CORPUSCULAR HGB CONC 32.5 g/L CALC (32.0-36.0); RED BLOOD COUNT 3.86 mill/uL (4.70-6.10)
[2019-01-11 05:55] LABS: INTERNATIONAL NORMALIZED RATIO 2.1 RATIO (0.7-1.3); PROTHROMBIN TIME 21.7 SECONDS (9.0-12.5)
[2019-01-11 06:08] LABS: ANION GAP 10 (6-22 (CALC)); BUN 23 mg/dL (8-23); BUN/CREATININE RATIO 25 (12-20 (CALC)); CARBON DIOXIDE 24 mmol/l (22-30); CHLORIDE 111 mmol/l (95-108); CREATININE 0.9 mg/dL (0.7-1.3); GFR > 60 ML/MIN (>=60 (CALC)); GFR FOR AFR.AMER. > 60 ML/MIN (>=60 (CALC)); SODIUM 141 mmol/l (137-146)
[2019-01-11 08:40] VITALS: BP 114/73
[2019-01-11 11:12] VITALS: BP 101/68
[2019-01-11 15:15] VITALS: BP 95/59
[2019-01-11 18:54] VITALS: BP 126/81
[2019-01-12 00:21] VITALS: BP 147/81
[2019-01-12 04:46] VITALS: BP 142/82
[2019-01-12 05:41] LABS: HEMATOCRIT 37.7 % (39.0-50.0); HEMOGLOBIN 12.1 g/dl (14.0-18.0); MEAN CELL VOLUME 95.9 fL CALC (80.0-100.0); MEAN CORPUSCULAR HGB 30.8 pG CALC (26.0-32.0); MEAN CORPUSCULAR HGB CONC 32.1 g/L CALC (32.0-36.0); RED BLOOD COUNT 3.93 mill/uL (4.70-6.10)
[2019-01-12 05:49] LABS: PROTHROMBIN TIME 28.1 SECONDS (9.0-12.5)
[2019-01-12 05:51] LABS: INTERNATIONAL NORMALIZED RATIO 2.8 RATIO (0.7-1.3)
[2019-01-12 05:56] LABS: ANION GAP 12 (6-22 (CALC)); BUN 23 mg/dL (8-23); BUN/CREATININE RATIO 25 (12-20 (CALC)); CARBON DIOXIDE 23 mmol/l (22-30); CHLORIDE 112 mmol/l (95-108); CREATININE 0.9 mg/dL (0.7-1.3); GFR > 60 ML/MIN (>=60 (CALC)); GFR FOR AFR.AMER. > 60 ML/MIN (>=60 (CALC)); POTASSIUM 4.2 mmol/l (3.5-5.1); SODIUM 143 mmol/l (137-146)
[2019-01-12 08:14] VITALS: BP 135/75
[2019-01-12 11:00] VITALS: BP 143/75
[2019-01-12 14:50] VITALS: BP 156/93
[2019-01-12 19:07] VITALS: BP 143/94
[2019-01-13] VITALS (7 sets, daily range): BP systolic 132–145; BP diastolic 58–90
[2019-01-13 05:19] LABS: HEMATOCRIT 39.4 % (39.0-50.0); HEMOGLOBIN 12.6 g/dl (14.0-18.0); MEAN CELL VOLUME 95.4 fL CALC (80.0-100.0); MEAN CORPUSCULAR HGB 30.5 pG CALC (26.0-32.0); RED BLOOD COUNT 4.13 mill/uL (4.70-6.10); RED CELL DISTRI WIDTH 14.2 % (11.5-15.5)
[2019-01-13 05:29] LABS: ANION GAP 9 (6-22 (CALC)); BUN 26 mg/dL (8-23); BUN/CREATININE RATIO 28 (12-20 (CALC)); CARBON DIOXIDE 25 mmol/l (22-30); CHLORIDE 113 mmol/l (95-108); CREATININE 0.9 mg/dL (0.7-1.3); GFR > 60 ML/MIN (>=60 (CALC)); GFR FOR AFR.AMER. > 60 ML/MIN (>=60 (CALC)); POTASSIUM 4.1 mmol/l (3.5-5.1); SODIUM 142 mmol/l (137-146)
[2019-01-13 06:04] LABS: INTERNATIONAL NORMALIZED RATIO 3.3 RATIO (0.7-1.3)
[2019-01-14 03:50] VITALS: BP 139/82
[2019-01-14 07:22] VITALS: BP 162/100
[2019-01-14 07:46] LABS: INTERNATIONAL NORMALIZED RATIO 2.8 RATIO (0.7-1.3); PROTHROMBIN TIME 27.9 SECONDS (9.0-12.5)
[2019-01-14 10:45] VITALS: BP 151/97
[2019-01-14 14:48] VITALS: BP 114/84
[2019-01-14 19:00] VITALS: BP 142/90
[2019-01-14 23:44] VITALS: BP 143/92
[2019-01-15] VITALS (7 sets, daily range): BP systolic 114–158; BP diastolic 48–117
[2019-01-15 05:21] LABS: INTERNATIONAL NORMALIZED RATIO 2.5 RATIO (0.7-1.3)
[2019-01-15 11:36] LABS: HEMATOCRIT 41.3 % (39.0-50.0); HEMOGLOBIN 13.3 g/dl (14.0-18.0); IMMATURE GRANULOCYTES 2.3 % (0.0-5.0); MEAN CELL VOLUME 94.5 fL CALC (80.0-100.0); MEAN CORPUSCULAR HGB 30.4 pG CALC (26.0-32.0); MEAN CORPUSCULAR HGB CONC 32.2 g/L CALC (32.0-36.0); NEUT# 12.31 thou/uL (1.82-7.42); RED BLOOD COUNT 4.37 mill/uL (4.70-6.10); RED CELL DISTRI WIDTH 14.3 % (11.5-15.5)
[2019-01-15 11:57] LABS: ANION GAP 10 (6-22 (CALC)); BUN 26 mg/dL (8-23); BUN/CREATININE RATIO 34 (12-20 (CALC)); CARBON DIOXIDE 25 mmol/l (22-30); CHLORIDE 110 mmol/l (95-108); CREATININE 0.8 mg/dL (0.7-1.3); GFR > 60 ML/MIN (>=60 (CALC)); GFR FOR AFR.AMER. > 60 ML/MIN (>=60 (CALC)); POTASSIUM 4.3 mmol/l (3.5-5.1); SODIUM 140 mmol/l (137-146)
[2019-01-16 04:42] VITALS: BP 152/98
[2019-01-16 04:48] LABS: INTERNATIONAL NORMALIZED RATIO 2.3 RATIO (0.7-1.3); PROTHROMBIN TIME 23.4 SECONDS (9.0-12.5)
[2019-01-16 07:25] VITALS: BP 151/95
[2019-01-16 10:30] VITALS: BP 147/92
[2019-01-16] MEDS ORDERED: AUGMENTIN500TAB PO (13:44)
[2019-01-16] MEDS ORDERED: MUCINEX600 MG PO (13:45)
[2019-01-16] MEDS ORDERED: SURFAK240 MG/CAP PO (13:45)
[2019-01-16] MEDS ORDERED: MAPAP325 MG PO (13:45)
[2019-01-16] MEDS ORDERED: COUMADIN2 MG PO (13:46)
[2019-01-16] MEDS ORDERED: CARVEDILOL25 MG PO (13:46)
== END 2019-01-16 14:55 | DRG 178 ==
LOC: ED 10:28 → ED-I 11:07 → ED 11:48 → ICU 11:49 → MS2 11:49
PROVIDERS: Family Medicine; Internal Medicine; Nurse Practitioner Family; ADMIT Internal Medicine; ATTEND Internal Medicine
PROC: 0T9B70Z Drainage of Bladder with Drainage Device, Via Natural or Artificial Opening (ICD-10-PCS; principal; 2019-01-07)
DX: J69.0 Pneumonitis due to inhalation of food and vomit (principal); I50.32 Chronic diastolic (congestive) heart failure; I69.354 Hemiplegia and hemiparesis following cerebral infarction affecting left non-dominant side; J44.1 Chronic obstructive pulmonary disease with (acute) exacerbation; I11.0 Hypertensive heart disease with heart failure; I69.392 Facial weakness following cerebral infarction; I48.2 Chronic atrial fibrillation; E03.9 Hypothyroidism, unspecified; R79.1 Abnormal coagulation profile; R32 Unspecified urinary incontinence; Z79.01 Long term (current) use of anticoagulants; Z85.819 Personal history of malignant neoplasm of unspecified site of lip, oral cavity, and pharynx; Z92.3 Personal history of irradiation; Z87.01 Personal history of pneumonia (recurrent); Z86.79 Personal history of other diseases of the circulatory system; Z87.891 Personal history of nicotine dependence
CPT/HCPCS: J3370

== ENCOUNTER 2019-05-28 10:48 | Inpatient (IN) | payer MEDICARE, MEDICAID ==
[2019-05-28] VITALS (15 sets, daily range): BP systolic 98–142; BP diastolic 54–92
[~2019-05-28] VITALS: Ht 172.7 cm; Wt 93.7 kg
[~2019-05-28 10:48] MED LIST changes: +AUGMENTIN500TAB PO; +CARVEDILOL25 MG PO; +COUMADIN2 MG PO; +MAPAP325 MG PO; +MUCINEX600 MG PO; +SURFAK240 MG/CAP PO
[2019-05-28 11:30] LABS: HEMATOCRIT 44.1 % (39.0-50.0); HEMOGLOBIN 14.7 g/dl (14.0-18.0); IMMATURE GRANULOCYTES 0.2 % (0.0-5.0); MEAN CELL VOLUME 91.9 fL CALC (80.0-100.0); MEAN CORPUSCULAR HGB 30.6 pG CALC (26.0-32.0); MEAN CORPUSCULAR HGB CONC 33.3 g/L CALC (32.0-36.0); NEUT# 7.68 thou/uL (1.82-7.42); RED BLOOD COUNT 4.8 mill/uL (4.70-6.10); RED CELL DISTRI WIDTH 13.3 % (11.5-15.5)
[2019-05-28 11:47] LABS: ACT PARTIAL THROMBO TIME 28.4 SECONDS (20.0-32.5)
[2019-05-28 11:49] LABS: ALBUMIN 3.5 g/dL (3.2-5.0); ALKALINE PHOSPHATASE 102 u/l (38-126); BUN 17 mg/dL (8-23); BUN/CREATININE RATIO 16 (12-20 (CALC)); CHLORIDE 109 mmol/l (95-108); CREATININE 1.1 mg/dL (0.7-1.3); ETHYL ALCOHOL 0 mg/dl (0-30); GFR > 60 ML/MIN (>=60 (CALC)); GFR FOR AFR.AMER. > 60 ML/MIN (>=60 (CALC)); LIPASE 156 u/l (23-300); MAGNESIUM 1.7 mg/dL (1.6-2.3); POTASSIUM 3.8 mmol/l (3.5-5.1); SGOT/AST 19 u/l (19-48); SODIUM 140 mmol/l (137-146); TOTAL PROTEIN 6.8 g/dL (6.3-8.2)
[2019-05-28 11:50] LABS: ANION GAP 12 (6-22 (CALC)); BILIRUBIN, TOTAL 1.2 mg/dL (0.0-1.4); CARBON DIOXIDE 23 mmol/l (22-30)
[2019-05-28 12:08] LABS: INTERNATIONAL NORMALIZED RATIO 1.4 RATIO (0.7-1.3); PROTHROMBIN TIME 14.6 SECONDS (9.0-12.5)
[2019-05-28 13:17] LABS: URINE BILIRUBIN - DIPSTICK NEGATIVE (NEGATIVE); URINE BLOOD DIPSTICK SMALL (NEGATIVE); URINE COLOR YELLOW; URINE GLUCOSE - DIPSTICK NEGATIVE (NEGATIVE); URINE KETONE TRACE mg/dL (NEGATIVE); URINE LEUK ESTERASE NEGATIVE (NEGATIVE); URINE NITRITE - DIPSTICK NEGATIVE (Negative); URINE PH 5.5 (4.5-8.0); URINE PROTEIN - DIPSTICK TRACE mg/dL (NEG-TRACE); URINE SPECIFIC GRAVITY 1.025; URINE UROBILINOGEN - DIPSTICK 0.2 E.U./dL (0.2)
[2019-05-28 13:33] LABS: URINE SQUAMOUS EPITHELIAL CELL FEW EPI/hpf (0-FEW)
[2019-05-29] VITALS (66 sets, daily range): BP systolic 78–164; BP diastolic 43–93
[2019-05-29 05:21] LABS: HEMATOCRIT 44.1 % (39.0-50.0); HEMOGLOBIN 14.7 g/dl (14.0-18.0); IMMATURE GRANULOCYTES 0.5 % (0.0-5.0); MEAN CELL VOLUME 91.9 fL CALC (80.0-100.0); MEAN CORPUSCULAR HGB 30.6 pG CALC (26.0-32.0); MEAN CORPUSCULAR HGB CONC 33.3 g/L CALC (32.0-36.0); NEUT# 5.82 thou/uL (1.82-7.42); RED BLOOD COUNT 4.8 mill/uL (4.70-6.10); RED CELL DISTRI WIDTH 13.4 % (11.5-15.5)
[2019-05-29 05:29] LABS: ANION GAP 11 (6-22 (CALC)); BUN 17 mg/dL (8-23); BUN/CREATININE RATIO 18 (12-20 (CALC)); CARBON DIOXIDE 23 mmol/l (22-30); CHLORIDE 108 mmol/l (95-108); GFR > 60 ML/MIN (>=60 (CALC)); GFR FOR AFR.AMER. > 60 ML/MIN (>=60 (CALC)); POTASSIUM 3.3 mmol/l (3.5-5.1); SODIUM 139 mmol/l (137-146)
[2019-05-29 05:32] LABS: INTERNATIONAL NORMALIZED RATIO 1.3 RATIO (0.7-1.3); PROTHROMBIN TIME 13.8 SECONDS (9.0-12.5)
[2019-05-30] VITALS (19 sets, daily range): BP systolic 91–160; BP diastolic 58–92
[2019-05-30 06:21] LABS: HEMATOCRIT 43.2 % (39.0-50.0); HEMOGLOBIN 14.2 g/dl (14.0-18.0); MEAN CELL VOLUME 91.5 fL CALC (80.0-100.0); MEAN CORPUSCULAR HGB 30.1 pG CALC (26.0-32.0); MEAN CORPUSCULAR HGB CONC 32.9 g/L CALC (32.0-36.0); RED BLOOD COUNT 4.72 mill/uL (4.70-6.10); RED CELL DISTRI WIDTH 13.2 % (11.5-15.5)
[2019-05-30 06:48] LABS: ANION GAP 13 (6-22 (CALC)); BUN 15 mg/dL (8-23); BUN/CREATININE RATIO 16 (12-20 (CALC)); CARBON DIOXIDE 25 mmol/l (22-30); CHLORIDE 105 mmol/l (95-108); CREATININE 0.9 mg/dL (0.7-1.3); GFR > 60 ML/MIN (>=60 (CALC)); GFR FOR AFR.AMER. > 60 ML/MIN (>=60 (CALC)); MAGNESIUM 1.8 mg/dL (1.6-2.3); POTASSIUM 3.4 mmol/l (3.5-5.1); SODIUM 139 mmol/l (137-146)
[2019-05-30 07:05] LABS: INTERNATIONAL NORMALIZED RATIO 1.2 RATIO (0.7-1.3); PROTHROMBIN TIME 12.3 SECONDS (9.0-12.5)
[2019-05-30] MEDS ORDERED: WARFARIN4 MG PO (12:16)
[2019-05-30 12:51] LABS: INTERNATIONAL NORMALIZED RATIO 1.2 RATIO (0.7-1.3); PROTHROMBIN TIME 12.7 SECONDS (9.0-12.5)
[2019-05-31] VITALS (12 sets, daily range): BP systolic 102–123; BP diastolic 58–86
[2019-05-31 05:43] LABS: INTERNATIONAL NORMALIZED RATIO 1.3 RATIO (0.7-1.3); PROTHROMBIN TIME 13.4 SECONDS (9.0-12.5)
[2019-05-31 10:26] LABS: INTERNATIONAL NORMALIZED RATIO 1.3 RATIO (0.7-1.3); PROTHROMBIN TIME 13.6 SECONDS (9.0-12.5)
[2019-06-01] VITALS (7 sets, daily range): BP systolic 106–131; BP diastolic 60–90
[2019-06-01 05:36] LABS: HEMATOCRIT 40.5 % (39.0-50.0); HEMOGLOBIN 13.3 g/dl (14.0-18.0); MEAN CELL VOLUME 93.5 fL CALC (80.0-100.0); MEAN CORPUSCULAR HGB 30.7 pG CALC (26.0-32.0); MEAN CORPUSCULAR HGB CONC 32.8 g/L CALC (32.0-36.0); RED BLOOD COUNT 4.33 mill/uL (4.70-6.10); RED CELL DISTRI WIDTH 13.5 % (11.5-15.5)
[2019-06-01 05:57] LABS: INTERNATIONAL NORMALIZED RATIO 1.5 RATIO (0.7-1.3); PROTHROMBIN TIME 15.6 SECONDS (9.0-12.5)
[2019-06-01 05:59] LABS: ANION GAP 10 (6-22 (CALC)); BUN 28 mg/dL (8-23); BUN/CREATININE RATIO 29 (12-20 (CALC)); CARBON DIOXIDE 30 mmol/l (22-30); CHLORIDE 106 mmol/l (95-108); GFR > 60 ML/MIN (>=60 (CALC)); GFR FOR AFR.AMER. > 60 ML/MIN (>=60 (CALC)); POTASSIUM 3.7 mmol/l (3.5-5.1); SODIUM 142 mmol/l (137-146)
[2019-06-01] MEDS ORDERED: AMOX/K CLAV875 M1 PO (09:38)
[2019-06-01] MEDS ORDERED: PREDNISONE10 MG PO (09:38)
[2019-06-01] MEDS ORDERED: SURFAK240 MG/CAP PO (09:38)
[2019-06-01] MEDS ORDERED: MUCINEX600 MG PO (09:38)
== END 2019-06-01 18:50 | DRG 871 ==
LOC: ED 10:48 → ED-I 13:50 → ED 14:11 → ICU 14:12
PROVIDERS: ADMIT Internal Medicine; ATTEND Internal Medicine
PROC: 0T9B70Z Drainage of Bladder with Drainage Device, Via Natural or Artificial Opening (ICD-10-PCS; 2019-05-28)
PROC: 02HV33Z Insertion of Infusion Device into Superior Vena Cava, Percutaneous Approach (ICD-10-PCS; principal; 2019-05-29)
DX: A41.9 Sepsis, unspecified organism (principal); R65.21 Severe sepsis with septic shock; I69.354 Hemiplegia and hemiparesis following cerebral infarction affecting left non-dominant side; J44.1 Chronic obstructive pulmonary disease with (acute) exacerbation; J44.0 Chronic obstructive pulmonary disease with (acute) lower respiratory infection; I10 Essential (primary) hypertension; I95.9 Hypotension, unspecified; I48.91 Unspecified atrial fibrillation; E03.9 Hypothyroidism, unspecified; Z87.891 Personal history of nicotine dependence; Z86.79 Personal history of other diseases of the circulatory system; Z79.01 Long term (current) use of anticoagulants; Z85.819 Personal history of malignant neoplasm of unspecified site of lip, oral cavity, and pharynx; Y95 Nosocomial condition
CPT/HCPCS: J0131

== ENCOUNTER 2020-01-21 22:31 | Inpatient (IN) | payer MEDICARE ==
[~2020-01-21] VITALS: Ht 172.7 cm; Wt 95.4 kg
[~2020-01-21 22:31] MED LIST changes: +AMOX/K CLAV875 M1 PO; +WARFARIN4 MG PO
--- NOTE | 2020-01-21 22:32 | NUR ---
BY EMS TO ROOM
[2020-01-21 22:57] LABS: HEMATOCRIT 49.2 % (39.0-50.0); HEMOGLOBIN 15.8 g/dl (14.0-18.0); IMMATURE GRANULOCYTES 0.3 % (0.0-5.0); MEAN CELL VOLUME 94.8 fL CALC (80.0-100.0); MEAN CORPUSCULAR HGB 30.4 pG CALC (26.0-32.0); MEAN CORPUSCULAR HGB CONC 32.1 g/dL CAL (32.0-36.0); NEUT# 7.18 thou/uL (1.82-7.42); RED BLOOD COUNT 5.19 mill/uL (4.70-6.10); RED CELL DISTRI WIDTH 13.2 % (11.5-15.5)
[2020-01-21 23:10] LABS: ALKALINE PHOSPHATASE 128 u/l (38-126); ANION GAP 10 (6-22 (CALC)); BUN 15 mg/dL (8-23); BUN/CREATININE RATIO 16 (12-20 (CALC)); CARBON DIOXIDE 27 mmol/l (22-30); CHLORIDE 105 mmol/l (95-108); GFR > 60 ML/MIN (>=60 (CALC)); GFR FOR AFR.AMER. > 60 ML/MIN (>=60 (CALC)); POTASSIUM 4.3 mmol/l (3.5-5.1); SGOT/AST 25 u/l (19-48); SODIUM 138 mmol/l (137-146); TOTAL PROTEIN 6.8 g/dL (6.3-8.2)
[2020-01-21] MEDS ORDERED: TRAZODONE50 MG PO (23:11)
[2020-01-21 23:12] LABS: BILIRUBIN, TOTAL 1.2 mg/dL (0.0-1.4)
--- NOTE | 2020-01-21 23:24 | NUR ---
PER PEGGY WHO GIVES PRIMARY CARE TO PT PT POORNIMA BARRAGAN THIS AAM BUT BECAME WEAK AND SOB THIS EVENING DEVELOPED A FEVER 100.3 WHICH SHE TX WITH OTS FEVER MED
--- NOTE | 2020-01-21 23:48 | NUR ---
[facility] LOOSE CONGESTED PLAN CONSULTANT COUGH
[2020-01-22] VITALS (20 sets, daily range): BP systolic 62–169; BP diastolic 51–109
--- NOTE | 2020-01-22 00:44 | NUR ---
PT WAS SUCTIONED ORALLY/NASALLY. FOR MOD AMT OF CLEAR TO WHITE PHLEM. CONTINUES TO RATTLE/COUGH. RT CALLED FOR ADDITIONAL ASSISTANCE WITH AIRWAY SUCTIONING.
--- NOTE | 2020-01-22 00:45 | NUR ---
PT HAS NT SUCTIINING BY RT.
--- NOTE | 2020-01-22 01:06 | NUR ---
SPASMODIC COUGHING HAS SUBSIDED
[2020-01-22 02:22] LABS: URINE BILIRUBIN - DIPSTICK NEGATIVE (NEGATIVE); URINE BLOOD DIPSTICK MODERATE (NEGATIVE); URINE COLOR YELLOW; URINE GLUCOSE - DIPSTICK NEGATIVE (NEGATIVE); URINE KETONE NEGATIVE (NEGATIVE); URINE LEUK ESTERASE NEGATIVE (NEGATIVE); URINE NITRITE - DIPSTICK NEGATIVE (Negative); URINE PH 5.5 (4.5-8.0); URINE PROTEIN - DIPSTICK NEGATIVE (NEG-TRACE); URINE SPECIFIC GRAVITY 1.025; URINE UROBILINOGEN - DIPSTICK 0.2 E.U./dL (0.2)
--- NOTE | 2020-01-22 02:25 | NUR ---
PHONE REPORT TO NURSE PEPE ON MS
--- NOTE | 2020-01-22 02:30 | NUR ---
PT TRANSPORTED TO [facility] RM 282 IN STAABLE CONDITION TOTAL URINE OUTPUT 250CC CONC CLEAR URINE
--- NOTE | 2020-01-22 02:45 | NUR ---
PT ARRIVED VIA STRETCHER TO MS ACCOMPANIED BY MAISHA CULP. PT A&O. RATTLING HEARD UPON PTS INHALATION AND EXHALATION. O2 VIA NC @ 2L IN PLACE. SHALLOW BREATHING NOTED. PT FLUSHED IN APPEARANCE.
[2020-01-22 02:53] LABS: URINE SQUAMOUS EPITHELIAL CELL FEW EPI/hpf (0-FEW); URINE WBC 0-2 WBC/hpf (0-5)
--- NOTE | 2020-01-22 02:59 | NUR ---
PER OMAR THOMSON PT SUSTAINING HR 150-170.
--- NOTE | 2020-01-22 03:01 | NUR ---
CALLED ED FOR UPDATE ON PTS HR, HR STILL SUSTAINING ABOVE 150 BPM.
--- NOTE | 2020-01-22 03:01 | NUR ---
DR GAY CALLED IN REGARDS TO PT STATUS. ORDERS REC TO TRANSFER PT TO ICU FOR CONTINUED MONITORING.
--- NOTE | 2020-01-22 03:30 | NUR ---
PT TRANSFERED TO ICU VIA STRETCHER WITH O2 @ 3L VIA NC. BEDSIDE REPORT GIVEN TO IVONNE CULP.
--- NOTE | 2020-01-22 03:30 | NUR ---
PT ARRIVED TO ICU, VIA BED, ACCOMPANIED BY SONOGRAPHY TECHNOLOGIST AND SUNI BARAKAT. PT RESPIRATIONS LABORED ON O2 @ 3L O2 VIA NC. PT RESPIRATIONS AUDIBLY COARSE. LUNGS SOUND COARSE. REPORT GIVEN AT BEDSIDE. ED PHYSICIAN CALLED, AND RT CALLED. VS OBTAINED AND AND ASSESSMENT COMPLETED. #20 LFA PATENT AND APPEARS HEALTHY. PT IS ALERT AND ORIENTED.
--- NOTE | 2020-01-22 03:45 | NUR ---
ON ARRIVAL TO ICU 4 PT BREATHIGN HARD AND HEART RATE REMAINS 150-170. DR GAY CALLED AND TO COME TO ICU TO SEE PATIENT. HE SAID TO GIVE CARDIZEM 10MG IVP NOW. DR GAY NOW AT BEDSIDE. LUNGS CLEAR. AIRWAY ISSUES APPEAR TO BE UPPER AIRWAY. RT AT BEDSIDE.
--- NOTE | 2020-01-22 03:50 | NUR ---
NIKA RT AT BEDSIDE TO SUCTION PT
--- NOTE | 2020-01-22 03:55 | NUR ---
CARDIZEM SLOWED HEART RATE SLIGHTLY. CARDIZEM DRIP ORDEDED AND RX FAXED TO [place]. RATE 108 AT THIS TIME
--- NOTE | 2020-01-22 04:30 | NUR ---
PT BP IS 62/51 CARDIZEM STOPPED REPEAT BP
--- NOTE | 2020-01-22 05:00 | NUR ---
Peripheral IV started. IV access obtained with #22 AutoGuard at Left Wrist with 2 IV stick attempts. Flushes easily with good blood return.
--- NOTE | 2020-01-22 05:49 | NUR ---
RT AT BEDSIDE OBTAINING EKG
[2020-01-22 06:19] LABS: HEMATOCRIT 45.1 % (39.0-50.0); HEMOGLOBIN 14.7 g/dl (14.0-18.0); IMMATURE GRANULOCYTES 0.4 % (0.0-5.0); MEAN CELL VOLUME 94.5 fL CALC (80.0-100.0); MEAN CORPUSCULAR HGB 30.8 pG CALC (26.0-32.0); MEAN CORPUSCULAR HGB CONC 32.6 g/dL CAL (32.0-36.0); NEUT# 10.32 thou/uL (1.82-7.42); RED BLOOD COUNT 4.77 mill/uL (4.70-6.10); RED CELL DISTRI WIDTH 13.2 % (11.5-15.5)
--- NOTE | 2020-01-22 07:07 | NUR ---
RECEIVED REPORT ON PATIENT.AMS, COUGH, TACHY 150'S , MOVED FROM MS TO ICU. CURRENTLY 106 ON THE MONITOR SINUS TACH.
--- NOTE | 2020-01-22 08:19 | NUR ---
THE PATIENT WAS ENCOURAGED TO EAT. TRAY PREPARED FOR HIM, HE SEEMS DISINTERESTED.
--- NOTE | 2020-01-22 08:55 | NUR ---
The patient di not eat breakfast. he opens his eyes when spoken to, moves when asked.
--- NOTE | 2020-01-22 09:31 | NUR ---
pATIENT REMOVED FROM OXYGEN BY DOCTOR.
--- NOTE | 2020-01-22 10:00 | NUR ---
THE PATIENTS DAUGHTER CALLLED, SHE STS THAT HER FATHER HAS DIFFICULTY EATING AND DRINKING EVEN WITH THICKENING.
--- NOTE | 2020-01-22 10:13 | NUR ---
scopalmine patch applied to right side behind ear.
--- NOTE | 2020-01-22 12:29 | NUR ---
THE PT ATE HIS LUNCH.
[2020-01-22 13:08] LABS: INTERNATIONAL NORMALIZED RATIO 3.6 RATIO (0.7-1.3); PROTHROMBIN TIME 33.6 SECONDS (9.0-12.5)
--- NOTE | 2020-01-22 14:31 | NUR ---
S: AMANDA JAIN is a 74 M who presents with aspiration pneumonia. He has a history of hypertension, depression, subdural hematoma, thromboembolic CVA, throat cancer, AFib. All medications in patient's chart were reviewed. O VS: BP 77/56 mmHg, P 104 bpm, RR 18 breaths/min ,T 98.7 F W 97.75kg, HT147.32 cm, Scr= 1 mg/dL, CrCl= 70ml/min A: Blood culture is pending. P: Patient is on Vancomycin IV. Vancomycin ordered for pharmacy to dose. Start Vancomycin 1250 mg IV Q12H. Vancomycin trough is drawn before the 4th dose on 01/24/20 0030. Vancomycin goal trough is between 15-20 mcg/ml. Pharmacy will follow and or advise on antibiotics use as needed.
--- NOTE | 2020-01-22 17:47 | NUR ---
The patient urinated 200 ml. he's eating his dinner. no c/o pain
--- NOTE | 2020-01-22 19:30 | NUR ---
RECEIVED REPORT FOR THIS PT AND IM BED WITH EYES OPEN. NO S/S OF DISTRESS NOTED.
--- NOTE | 2020-01-22 22:00 | NUR ---
PT IN BED WITH EYES OPEN AND ABLE TO MAKE NEEDS KNOWN. RESPIRATIONS ARE NONLABORED BUT MOIST NON PRODUCTIVE COUGH NOTED. RALES IN UPPER AND LOWER LUNG CUMMINGS. ABDOMEN IS DISTENDED AND BOWEL SOUNDS ARE HYPOACYIVE. PT DENIES ABDOMINAL DISCOMFORT AND STATES THAT THIS IS THE NORMAL SIZE OF HIS ABDOMEN. wILL CONTINUE TO OBSERVE. PT HAS NORMAL SALIN RUNNING AT 125ML/HR. AFEBRILE AND BP 88/63 WITH NO S/S OF DISTRESS. HOB ELEVATED AND CALL LIGHT IS WITHIN REACH. O2 SAT 96-97% ON ROOM AIR. RESIDNET REMOVED OXYGEN THERAPY. RESPIRATORY IN AND NO SUCTION NEEDED. WILL CONTINUE TO OBSERVE.
[2020-01-23] VITALS (9 sets, daily range): BP systolic 104–148; BP diastolic 54–96
--- NOTE | 2020-01-23 01:52 | NUR ---
mD MADE AWARE OF RALES IN UPPER AND LOWER LUNG CUMMINGS. PT ALSO COMPLAINING OF BACK PAIN AND NEW ORDER FOR TYLENOL PRN AND WAS ADMINISTERESD PRESCRIBED BY MD. LASIX GIVEN PRESCRIBED. HOB ELEVATED. PT USING URINAL AND INCONTINENT EPISODE OF BLADDER NOTED. CALL LIGHT IS WITHIN REACH. WILL CONTINUE TO OBSERVE.
--- NOTE | 2020-01-23 03:30 | NUR ---
PT IN BED WITH EYES CLOSED. NO S/S OF DISTRESS NOTED. CONTINUES ON IV ABT THERAPY WITH NO ADVERSE SIDE EFFECTS NOTED. TELEMETRY CONTINUES AND ATRIAL FIBRILLATION NOTED WITH NO OTHER S/S OF DISTRESS. NORMAL SALINE DISCONTINUED PER MD AND ORDERS NOTED. USING URINAL WITH NO COMPLICATIONS NOTED. NO SWALLOWING DIFFICULTIES NOTED. CALL LIGHT IS WITHIN REACH. WILL CONTINUE TO OBSERVE.
[2020-01-23 05:04] LABS: HEMATOCRIT 44.5 % (39.0-50.0); HEMOGLOBIN 14.2 g/dl (14.0-18.0); MEAN CELL VOLUME 95.3 fL CALC (80.0-100.0); MEAN CORPUSCULAR HGB 30.4 pG CALC (26.0-32.0); MEAN CORPUSCULAR HGB CONC 31.9 g/dL CAL (32.0-36.0); RED BLOOD COUNT 4.67 mill/uL (4.70-6.10); RED CELL DISTRI WIDTH 13.3 % (11.5-15.5)
[2020-01-23 05:21] LABS: INTERNATIONAL NORMALIZED RATIO 3.4 RATIO (0.7-1.3); PROTHROMBIN TIME 32.1 SECONDS (9.0-12.5)
[2020-01-23 05:23] LABS: ALKALINE PHOSPHATASE 90 u/l (38-126); ANION GAP 9 (6-22 (CALC)); BILIRUBIN, TOTAL 1.5 mg/dL (0.0-1.4); BUN 18 mg/dL (8-23); BUN/CREATININE RATIO 15 (12-20 (CALC)); CARBON DIOXIDE 26 mmol/l (22-30); CHLORIDE 108 mmol/l (95-108); CREATININE 1.2 mg/dL (0.7-1.3); GFR 59 ML/MIN (>=60 (CALC)); GFR FOR AFR.AMER. > 60 ML/MIN (>=60 (CALC)); SGOT/AST 21 u/l (19-48); SODIUM 139 mmol/l (137-146); TOTAL PROTEIN 5.5 g/dL (6.3-8.2)
[2020-01-23 05:24] LABS: ALBUMIN 3.1 g/dL (3.2-5.0)
--- NOTE | 2020-01-23 06:00 | NUR ---
PT IN BED WITH EYES OPEN AND ABLE TO MAKE NEEDS KNOWN. RESPIRATION ARE EVEN AND NON LABORED AND CONTINUES WITH MOIST COUGH AND NONP PRODUCTIVE. CHEST XRAY DONE THIS AM AND AWAITING RESULTS. O2 SAT 99-100% ROOM AIR. CONTINENT OF BLADDER WITH EPISODES OF INCONTINENCE DURING THE NIGHT. CONTINUES ON TELEMETRY. IV SITE TO LFA INTACT AND NO S/S OF INFECTION/INFILTRATION. HOB ELEVATED AND CALL LIGHT WITHIN REACH. NO FLUIDS AT THIS TIME. WILL CONTINUE TO OBSERVE
--- NOTE | 2020-01-23 07:42 | NUR ---
Patient is screened for rehab intervention. He may benefit from PT and ST intervention for funcitonal assessment and diet recommendations for aspiration prevention is medical agrees
--- NOTE | 2020-01-23 08:00 | NUR ---
PT RESTING IN BED, NO SIGNS OF DISTRESS, AUDIBLE WHEEZING HEARD WHILE AT BEDSIDE. ITEMS AND CALL LIGHT WITHIN REACH. BED IN LOW POSITION. EATING BREAKFAST AT THIS TIME.
--- NOTE | 2020-01-23 09:28 | NUR ---
LATE ENTRY: PRELIMINARY BLOOD CX RESULTS SHOWS GRAM POSITIVE COCCI IN [address]ES. RESULTS CALLED TO DR SUTHERLAND. PT IS CURRENTLY RECEIVING VANCOMYCIN 1250MG IV BID. NO NEW ORDERS RECEIVED.
--- NOTE | 2020-01-23 10:00 | NUR ---
PT SEMIFOWLERS IN BED, NO COMPLAINTS OR CONCERNS AT THIS TIME.
[2020-01-23] MEDS ORDERED: WARFARIN3 MG PO (11:31)
--- NOTE | 2020-01-23 12:00 | NUR ---
PT HIGH FOLWERS IN BED, LUNCH PROVIDED AT THIS TIME. IV MEDS INFUSING WITHOUT COMPLICATIONS. BED IN LOW POSITION. CALL LIGHT WITHIN REACH. PT DENIES ANY PAIN OR CONCERNS AT THIS TIME.
--- NOTE | 2020-01-23 14:00 | NUR ---
PT RESTING IN BED, WATCHING TV. IV MEDS INFUSING WITHOUT COMPLICATIONS. VITALS REMAIN STABLE. CALL LIGHT WITHIN REACH. DENIES ANY CONCERNS AT THIS TIME.
--- NOTE | 2020-01-23 16:00 | NUR ---
PT URINALS EMPTIED OF CLEAR AND DARK YELLOW URINE. PT LYING IN BED WATCHING TV WITH NO SIGNS OF DISTRESS. CALL LIGHT WITHIN REACH.
--- NOTE | 2020-01-23 18:00 | NUR ---
PT SITTING UPRIGHT IN BED, DINNER PROVIDED. IV MEDS INFUSING WITHOUT COMPLICATIONS. NO COMPLAINTS AT THIS TIME. CALL LIGHT AND PERSONAL ITEMS WITHIN REACH.
--- NOTE | 2020-01-23 19:30 | NUR ---
PATIETN TALENT ASSISTANT LIGHT, REQUESTS TO USE BSC TO HAVE A BM. PT WAS ASSESSED. IS ALERT AND ORIENTED TO SELF AND PLACE. GETS UP TO BSC WITH ASSIST X1 AND VERBAL CUEING. PT IS INCONTINENT OF URINE, DOES HAVE URINAL AT BEDSIDE. LFA IV INTACT, SALINE LOCKED. AFIB ON TELE, HIS HEART RATE RAISES TO 100'S WITH EXERTION. ON RA, O2 SATS GREATER THAN 95%, PT DOES HAVE A TEST CLERK COUGH. PT DOES FOLLOW DIRECTIONS, HE IS HARD OF HEARING AND HAS A SOFT VOICE. CALL LIGHT AT BEDSIDE, WAS INSTRUCTED TO USE CALL LIGHT WHEN HE WAS FINISHED ON BSC.
--- NOTE | 2020-01-23 19:55 | NUR ---
PT ROLL HANDLER LIGHT. WAS ASSISTED SAFELY BACK TO BED. DID NOT HAVE A BM, ONLY VOIDED. ICED WATER PROVIDED. PT LAYS WITH HOB GRAETER THAN 30 DEGREES. NEW SOCKS APPLIED. NO OTHER NEEDS OR COMPLAINTS AT THIS TIME. CALL LIGHT WITHIN REACH.
--- NOTE | 2020-01-23 21:50 | NUR ---
PT PATENT CHEMIST LIGHT, REQUESTS TO USE BSC. PT ASSISTED TO BSC. INSTRUCTIONS TO USE CALL LIGHT WHEN HE WAS FINSIHED ON BSC.
--- NOTE | 2020-01-23 22:10 | NUR ---
PATIENT HAD A LARGE SOFT/BROWN BM. ANGELICA-CARE PROVIDED. WAS SAFELY ASSISTED TO BED AND LAYS WITH HOB 30 DEGREES. NO OTHER NEEDS OR COMPLAINTS AT THIS TIME. CALL LIGHT WITHIN REACH.
[2020-01-24] VITALS (8 sets, daily range): BP systolic 90–132; BP diastolic 71–100
--- NOTE | 2020-01-24 00:49 | NUR ---
ANTIBIOTIC INFUSING NOW. PT IN NO ACUTE DISTRESS. NO NEED OR COMPLAINTS AT THIS TIME.
--- NOTE | 2020-01-24 01:37 | NUR ---
VANCOMYCIN INFUSING NOW. PT IS AWAKE, WATCHES TV. NO ACUTE DISTRESS SHOWN. CALL LIGHT WITHIN REACH.
--- NOTE | 2020-01-24 03:34 | NUR ---
VACOMYCIN FINISHED INFUSING, IV X2 INTACT. PT IN NO ACUTE DISTRESS. NO COMPLAINTS OR NEEDS AT THIS TIME. CALL LIGHT WITHIN REACH.
--- NOTE | 2020-01-24 05:30 | NUR ---
PT IS AWAKE, ALERT. IV ANTIBIOTIC INFUSING NOW. VOIDED 300 ML IN URINAL. NO COM-PLAINTS OR NEEDS AT THIS TIME. CALL LIGHT WITHIN REACH.
--- NOTE | 2020-01-24 09:49 | NUR ---
PT IS SEEN AWAKE, ALERT, ORIENTED X 2. PT WITH WHEEZING THROUGHOUT ALL LUNG CUMMINGS AND LOUD CROUPY COUGH, RA. SATS UPPER 90s. BM TODAY. NO EVIDENCE OF DISTRESS.
--- NOTE | 2020-01-24 11:00 | NUR ---
PT HAS BEEN TRANSFERRED TO MED/SURG ROOM 272. REPORT WAS PROVIDED TO CANDACE PRIOR TO DEPARTURE FROM ICU.
--- NOTE | 2020-01-24 11:15 | NUR ---
PT TRANSPORTED FROM ICU VIA WC WITH STAFF. IV SITE IS FREE FROM REDNESS OR EDEMA. ASSISTED BY CAROLINE RN TO THE BED, AUDIBLE WHEEZING IS PRESENT
--- NOTE | 2020-01-24 12:00 | NUR ---
PT HAS AUDIBLE WHEEZING., NO DISTRESS NOTED. IV SITE IS FREE FROM REDNESS OR EDEMA.
--- NOTE | 2020-01-24 13:51 | NUR ---
PT IS RECEIVING VANCOMYCIN FOR ASPIRATION PNEUMONIA AND S EPIDERMIDIS BACTEREMIA (4/ BOTTLES). PT RECEIVED VANCOMYCIN 1250MG IV Q12H; TROUGH BEFORE 4TH DOSE WAS 14 MCG/ML ON 01/23 @ 0030. INCREASE DOSE TO 1G IV Q8H. RE-CHECK TROUGH 01/24 @ 0930. GOAL TROUGH IS 15-20 MCG/ML. PHARMACY WILL CONTINUE TO FOLLOW.
--- NOTE | 2020-01-24 16:00 | NUR ---
PT IS RELAXING IN BED WITH NO DISTRESS NOTED. IV SITE IS FREE FROM REDNESS OR EDEMA.
--- NOTE | 2020-01-24 17:12 | NUR ---
LARGE INCONTINENCEON THE FLOOR. GINNA FROM PT IN TO VISIT WITH PT ASSIST BACK TO BED,
--- NOTE | 2020-01-24 18:56 | NUR ---
REPORT RECEIVED FROM WILFREDO MARIA. PT RESTING IN BED. NO S/S OF DISTRESS AT THIS TIME. WILL CONTINUE TO MONITOR.
--- NOTE | 2020-01-24 20:21 | NUR ---
PT RESTING IN BED, ALERT AND ORIENTED X2. RESPIRATONS EVEN AND UNLABORED ON RA, WHEEZES NOTED THROUGH OUT LUNGS. PEDAL PULSES ARE STRONG. PT DENIES ANY PAIN OR DISCOMFORT AT THIS TIME. #20 LFA PATENT AND APPEARS HEALTHY, #22 LFA OCCLUDED #22 REMOVED WITH CATHETER INTACT. TELE IN PLACE. CALL LOWE WITHIN REACH. WILL CONTIUE TO MONITOR.
--- NOTE | 2020-01-25 00:24 | NUR ---
GARFIELD, STATE HISTORICAL SOCIETY DIRECTOR, AT BEDSIDE STARTING IV #22 RFA, PT TOLERATED WELL. EMS SITE #20 LFA , TO BE REMOVED.
[2020-01-25 00:37] VITALS: BP 128/84
--- NOTE | 2020-01-25 04:02 | NUR ---
PT RESTING IN BED, NO S/S OF DISTRESS AT THIS TIME. SAFETY PRECAUTIONS IN PLACE. WILL CONTINUE TO MONITOR.
[2020-01-25 04:38] VITALS: BP 137/88
[2020-01-25 07:30] VITALS: BP 139/62
--- NOTE | 2020-01-25 07:30 | NUR ---
ASSESSMENT IS COMPLETED; IV SITE IS FREE FROM REDNESS OR EDEMA. HR IS REG, PULSES ARE STRONG X4, ABD IS SOFT WITH ACTIVE BS. BREATH SOUNDS ARE WHEEZING THROUGH OUT. TELE MONITOR IN PLACE. +1 EDEMA NOTED ON BILAT FEET.
[2020-01-25 11:37] VITALS: BP 105/50
--- NOTE | 2020-01-25 12:15 | NUR ---
PT BACK INTO BED, IV SITE IS FREE FROM REDNESS OR EDEMA. CONTINUE TO OBSERVE AND MONITOR.
--- NOTE | 2020-01-25 13:17 | NUR ---
REPORT RECEIVED FROM WILFREDO MARIA.
--- NOTE | 2020-01-25 13:56 | NUR ---
PT WAS SEEN THIS PM FOR THEREX. HE WAS SUPINE IN BED WITH GR. 3 DYSPNEA. HE SAT UP ON EDGE OF BED FROM SUPINE WITH MOD INDEP AND VCS ON HAND PLACEMENT. SIT TO STAND REQUIRED MIN A AND VC FOR SAFETY. IMMEDIATE STANDING BALANCE WAS POOR AND REQUIRED MIN A TO STABILIZE. PT WAS ABLE TO STS X 10 REPS WITH TREAD BOOKER ON ONE SIDE WHILE PT PUSHES SELF UP HOLDING ONTO THE BED RAIL. AMPAC IS UNCHANGED: 10 POINTS, PT WILL BENEFIT FROM ECF.
--- NOTE | 2020-01-25 14:38 | NUR ---
RT AT BEDSIDE FOR BREATHING TREATMENT.
[2020-01-25 15:23] VITALS: BP 112/73
--- NOTE | 2020-01-25 16:12 | NUR ---
PT RESTING IN BED SEMI FOWLERS; ALERT AND ORIENTED. ASSISTED WITH TELEPHONE CALL TO HIS DAUGHTER. NEW ORDERS RECEIVED FOR SPEECH THERAPY AND 2GM SODIUM DIET. WILL CONTINUE TO MONITOR.
--- NOTE | 2020-01-25 18:30 | NUR ---
LAB AT BEDSIDE FOR VANCO TROUGH.
--- NOTE | 2020-01-25 18:55 | NUR ---
REPORT RECEIVED FROM CLARA CULP. PT RESTING IN BED FREE FROM DISTRESS AT THIS TIME. SAFETY PRECAUTIONS IN PLACE. WILL CONTINUE TO MONITOR.
[2020-01-25 19:34] VITALS: BP 117/75
--- NOTE | 2020-01-25 19:45 | NUR ---
PT RESTING IN BED, ALERT AND ORIENTED. RESPIRATIONS ARE EVEN AND UNLABORED ON RA. LUNGS SOUND DIMINISHED. PEDAL PULSES ARE WEAK. PT DENIES ANY PAIN AT THIS TIME. PT PULLED UP IN BED AND REPOSITIONED PER REQUEST. CALL LOWE WITHIN REACH. WILL CONTINUE TO MONITOR.
[2020-01-26 00:38] VITALS: BP 134/76
--- NOTE | 2020-01-26 04:01 | NUR ---
PT RESTING IN BED, WATCHING TV. NO S/S OF DISTRESS AT THIS TIME. SAFETY PRECAUTIONS IN PLACE. WILL CONTINUE TO MONITOR.
[2020-01-26 04:44] VITALS: BP 127/74
[2020-01-26 04:56] LABS: HEMATOCRIT 40.5 % (39.0-50.0); HEMOGLOBIN 13.1 g/dl (14.0-18.0); IMMATURE GRANULOCYTES 0.9 % (0.0-5.0); MEAN CELL VOLUME 94.4 fL CALC (80.0-100.0); MEAN CORPUSCULAR HGB 30.5 pG CALC (26.0-32.0); MEAN CORPUSCULAR HGB CONC 32.3 g/dL CAL (32.0-36.0); NEUT# 9.47 thou/uL (1.82-7.42); RED BLOOD COUNT 4.29 mill/uL (4.70-6.10); RED CELL DISTRI WIDTH 13.4 % (11.5-15.5)
[2020-01-26 05:11] LABS: ALKALINE PHOSPHATASE 74 u/l (38-126); ANION GAP 9 (6-22 (CALC)); BUN 24 mg/dL (8-23); BUN/CREATININE RATIO 24 (12-20 (CALC)); CARBON DIOXIDE 26 mmol/l (22-30); CHLORIDE 109 mmol/l (95-108); GFR > 60 ML/MIN (>=60 (CALC)); GFR FOR AFR.AMER. > 60 ML/MIN (>=60 (CALC)); POTASSIUM 3.9 mmol/l (3.5-5.1); SGOT/AST 20 u/l (19-48); SODIUM 140 mmol/l (137-146); TOTAL PROTEIN 5.3 g/dL (6.3-8.2)
[2020-01-26 05:15] LABS: INTERNATIONAL NORMALIZED RATIO 1.8 RATIO (0.7-1.3)
[2020-01-26 07:57] VITALS: BP 137/78
--- NOTE | 2020-01-26 07:57 | NUR ---
PT SITTING IN RECLINER. A&O X2, REORIENTATION TO CURRENT MONTH, PT EASILY REORIENTED. PT DENIES ANY CURRENT PAIN. AUDIBLE WHEEZING HEARD BUT CLEAR/DIMINISHED BREATH SOUNDS UPON AUSCULTATION. EDEMA NOTED TO BLE. NO NEEDS AT THIS TIME. ASSESSMENT COMPLETED. DISCUSSED POC, REINFORCEMENT NEEDED. CALL LIGHT IN REACH. CONTINUE TO MONITOR.
--- NOTE | 2020-01-26 08:13 | NUR ---
DR HERNANDEZ AT BEDSIDE DISCUSSING POC
[2020-01-26] MEDS ORDERED: AMOX/K CLAV875 M1 PO (10:15)
[2020-01-26] MEDS ORDERED: PREDNISONE10 MG PO (10:25)
[2020-01-26] MEDS ORDERED: CARVEDILOL25 MG PO (10:36)
--- NOTE | 2020-01-26 10:47 | NUR ---
SPEECH THERAPIST AT BEDSIDE CONDUCTING SWALLOW EVAL
[2020-01-26 11:11] VITALS: BP 115/75
--- NOTE | 2020-01-26 12:59 | NUR ---
PT SITTING IN RECLINER. A&O X2 REORIENTATION TO CURRENT MONTH, PT EASILY REORIENTED. PT DENIES ANY CURRENT PAIN. AUDIBLE WHEEZING HEARD BUT CLEAR/DIMINISHED BREATH SOUNDS UPON AUSCULTATION. EDEMA NOTED TO BLE. NO NEEDS AT THIS TIME. ASSESSMENT COMPLETED. DISCUSSED POC, REINFORCEMENT NEEDED. CALL LIGHT IN REACH. CONTINUE TO MONITOR.
--- NOTE | 2020-01-26 13:39 | NUR ---
PATIENT PERFORMED BED MOBILITY (SUPINE TO SIT, SCOOTING FORWARD), REQUIRED MIN-A TO COMPLETE THE TASK. SIT TO STAND X 2, MIN-A, AND TRANSFER FROM BED TO CHAIR X MIN-A WITH VERBAL AND TACTILE CUES ON PROPER SEQUENCING. IN SITTING POSITION, PATIENT PERFORMED BLE EXERCISES: KNEE RAISES, KNEE EXTENSION AND FLEXION, ANKLE DF-PF X 10 REPS X 1 SET ON EACH LE AND MOTIONS. PT POSITIONED PATIENT IN LONG SITTING, INSTRUCTED PATIENT TO CALL THE NURSE WHEN HE IS READY TO GO BACK TO BED, AND THIS PT PLACED CALL BUTTON AND PHONE ON HIS LAP BEFORE LEAVING. PT INFORMED THE NURSES ABOUT THE TRANSFER. AMPAC = 10
--- NOTE | 2020-01-26 13:41 | NUR ---
JULIA DAWSON UPDATED ON PTS D/C. SAMIR TO ARRIVE AROUND 2:30 PM
--- NOTE | 2020-01-26 14:44 | NUR ---
Diet consistency recommendations are pureed and nectar thickened liquids as tolerated
[2020-01-26 15:15] VITALS: BP 112/70
--- NOTE | 2020-01-26 15:30 | NUR ---
Discharge instructions given. Patient verbalizes understanding of same. Discharged in stable condition via wheelchair to home with home health agency [facility]. Pt accompanied to vehicle by this life insurance underwriter, daughter Mary and Lanette MENDEZ. all belongings sent with pt.
== END 2020-01-26 15:30 | disposition home health service (06) | DRG 871 ==
LOC: ED 22:31 → ED-I 01-22 01:20 → ED 01-22 01:47 → ICU 01-22 01:48 → MS2 01-22 01:48 → ICU 01-22 03:04 → MS2 01-24 11:15
PROVIDERS: Emergency Medicine; Internal Medicine; Nurse Practitioner; Nurse Practitioner Family; ADMIT Internal Medicine; ATTEND Internal Medicine
DX: A41.9 Sepsis, unspecified organism (principal); J69.0 Pneumonitis due to inhalation of food and vomit; J44.1 Chronic obstructive pulmonary disease with (acute) exacerbation; R09.02 Hypoxemia; I10 Essential (primary) hypertension; I48.91 Unspecified atrial fibrillation; I95.2 Hypotension due to drugs; T46.1X5A Adverse effect of calcium-channel blockers, initial encounter; R79.1 Abnormal coagulation profile; T45.515A Adverse effect of anticoagulants, initial encounter; F32.9 Major depressive disorder, single episode, unspecified; E03.9 Hypothyroidism, unspecified; Z85.819 Personal history of malignant neoplasm of unspecified site of lip, oral cavity, and pharynx; Z92.3 Personal history of irradiation; Z86.73 Personal history of transient ischemic attack (TIA), and cerebral infarction without residual deficits; Z86.79 Personal history of other diseases of the circulatory system; Z87.891 Personal history of nicotine dependence; Z79.01 Long term (current) use of anticoagulants; Z87.01 Personal history of pneumonia (recurrent); Z20.828 Contact with and (suspected) exposure to other viral communicable diseases
CPT/HCPCS: J3370

== ENCOUNTER 2020-02-14 10:32 | Inpatient (IN) | payer MEDICARE ==
[~2020-02-14] VITALS: Ht 172.7 cm; Wt 92.0 kg
[~2020-02-14 10:32] MED LIST changes: +TRAZODONE50 MG PO
--- NOTE | 2020-02-14 10:32 | NUR ---
PT TO ROOM VIA EMS
--- NOTE | 2020-02-14 10:35 | NUR ---
PT ALERT AND RESPONSIVE. VSS. DAUGHTER AT BEDSIDE. BLEEDING CONTROLEED TO RT EYEBROW
--- NOTE | 2020-02-14 10:35 | NUR ---
PT TRANSFERS SELF FROM WC TO BED, PT C/O SEVERE WEAKNESS TO LT ARM THAT STARTED LAST WEDNESDAY. PT ABLE TO WIGGLE FINGERS TO LT HAND WITH DECREASED GRASP AND INABILITY TO RESIST GRAVITY WITH LT ARM. PT HAS LT SIDED FACIAL DROOP THAT PT AND STATES IS "NORMAL FOR PT HE HAD JAW RECONSTRUCTION SURGERY YEARS AGO". OTHERWISE FACIAL SYMMETRY INTACT. PERRLA. VISUAL CUMMINGS INTACT. NO DRIFT OR WEAKNESS NOTED TO RT ARM OR BILAT LE. AT BEDSIDE
--- NOTE | 2020-02-14 11:32 | NUR ---
PT RETURN FROM RADIOLOGY. DRESSING TO HEAD SLIPPED DOWN AND WOUND IS BLEEDING SLIGHTLY. READJUSTED DRESSING TO WOUND ABOVE RT EYEBROW. EKG COMPLETED AND ATTEMPTED TO DRAW LABS FROM EMS IV. LAB DRAW WAS UNSUCCESSFUL FROM EMS IV SITE. EMS IV APPEARS HEALTHY AND FLUSHED WELL WITH 10ML OF SALINE. INSTRUCTED PT AND FAMILY MEMBER TO USE CALL LOWE TO CALL WITH ANY FURTHER COMPLAINTS OR NEEDS. WILL CONTINUE TO MONITOR.
[2020-02-14 12:03] LABS: IMMATURE GRANULOCYTES 0.5 % (0.0-5.0); MEAN CELL VOLUME 97.2 fL CALC (80.0-100.0); MEAN CORPUSCULAR HGB 31.3 pG CALC (26.0-32.0); MEAN CORPUSCULAR HGB CONC 32.2 g/dL CAL (32.0-36.0); NEUT# 6.06 thou/uL (1.82-7.42); RED BLOOD COUNT 5.04 mill/uL (4.70-6.10); RED CELL DISTRI WIDTH 13.7 % (11.5-15.5)
[2020-02-14 12:17] LABS: ALBUMIN 3.6 g/dL (3.2-5.0); ALKALINE PHOSPHATASE 97 u/l (38-126); ANION GAP 8 (6-22 (CALC)); BUN 14 mg/dL (8-23); BUN/CREATININE RATIO 13 (12-20 (CALC)); CARBON DIOXIDE 31 mmol/l (22-30); CHLORIDE 104 mmol/l (95-108); CREATININE 1.1 mg/dL (0.7-1.3); GFR > 60 ML/MIN (>=60 (CALC)); GFR FOR AFR.AMER. > 60 ML/MIN (>=60 (CALC)); POTASSIUM 4.1 mmol/l (3.5-5.1); SGOT/AST 28 u/l (19-48); SODIUM 139 mmol/l (137-146); TOTAL PROTEIN 6.3 g/dL (6.3-8.2)
[2020-02-14 12:20] LABS: HEMOGLOBIN 15.8 g/dl (14.0-18.0)
--- NOTE | 2020-02-14 12:30 | NUR ---
PT SITTING IN BED RESTING WITH DAUGHTER AT BEDSIDE. CHECKED DRESSING TO RIGHT EYEBROW LACERATION NO ACTIVE BLEEDING AT THIS TIME. ADVISED DAUGHTER TO CALL WITH ANY NEEDS OR COMPLAINTS AND OF EXTENDED SUTURE TIME DUE TO MD BEING WITH A CRITICAL PT. WILL CONTINUE TO MONITOR.
[2020-02-14 12:40] LABS: PROTHROMBIN TIME 70.3 SECONDS (9.0-12.5)
[2020-02-14 12:41] LABS: ACT PARTIAL THROMBO TIME 39.8 SECONDS (20.0-32.5); INTERNATIONAL NORMALIZED RATIO 7.8 RATIO (0.7-1.3)
--- NOTE | 2020-02-14 12:48 | NUR ---
REPORT CALLED TO FLOOR FOR CONTINUTATION OF CARE
--- NOTE | 2020-02-14 12:49 | NUR ---
PLACED NOTE ON WRONG PT.
--- NOTE | 2020-02-14 13:30 | NUR ---
IN SUTURING PTS RIGHT EYEBROW LACERATION AT THIS TIME.
--- NOTE | 2020-02-14 14:05 | NUR ---
APPLIED TELFA W/ 3 4X4 GAUZES SECURED W/ KERLIX AND TAPE TO RIGHT EYEBROW LAC POST LACERATION REPAIR. CLEANED PTS FACE OF BLOOD. PT HAS NO OTHER COMPLAINTS OR NEEDS AT THIS TIME. ADVISED TO CALL IF THEY HAVE ANY NEEDS OR COMPLAINTS. WILL CONTINUE TO MONITOR.
--- NOTE | 2020-02-14 15:25 | NUR ---
PT RESTING QUIETLY IN ER ROOM 6, FAMILY AT BEDSIDE. WARM BLANKET GIVEN. PT WATCHING TV.
--- NOTE | 2020-02-14 16:04 | NUR ---
ADVISED PT OF WAIT TIME FOR BED TO ICU. HOSPITAL BED BROUGHT DOWN FOR PT USE
--- NOTE | 2020-02-14 16:32 | NUR ---
PT VERY SLOW AND SOFTLY SPOKEN, ALERT, ORIENTED TO SELF. FAMILY STATES NORMAL. PLACED IN HOSPITAL BED, PT VERY SLOW AND UNSTEADY ON FEET, SHUFFLES LEGS TO MOVE WITH ALOT OF ASSISSTANCE.
--- NOTE | 2020-02-14 16:55 | NUR ---
NOTICEABLE BRUISING AND SWELLING TO GUILLERMO EYES. PT ABLE TO FOLLOW COMMANDS.
--- NOTE | 2020-02-14 17:16 | NUR ---
VITAL SIGNS 116/69 78 HR. RESP18, OXYGEN AT 97 PT SLEEPING AT THIS TIME
--- NOTE | 2020-02-14 18:20 | NUR ---
PT HAS GUILLERMO WHEEZING, BUT CAN COUGH UP PHLEGM, PT WAS ABLE TO EAT 75% OF SOFT DIET, AND ABLE TO DRINK ON OWN.
--- NOTE | 2020-02-14 18:44 | NUR ---
REPORT GIVEN TO ICU MODULAR SET CREW MEMBER FOR CONTINUATION OF CARE
[2020-02-14 19:15] VITALS: BP 138/92
[2020-02-14 19:30] VITALS: BP 116/94
[2020-02-14 19:45] VITALS: BP 166/89
--- NOTE | 2020-02-14 19:50 | NUR ---
[id number]- ARRIVED FROM ER VIA BED ACCOMPANIED BY ER STAFF. PT. IS A/AOX3. WITH SPEECH SLIGHTLY GARBLED AND SOFT R/T HX; OF THROAT CANCER. PT. REPORTS DIFFICULTY SWALLOWING R/T TO THIS WELL AND REPORTS THICKENING DRINKS AT HOME. PT. WITH BANDAGE IN PLACE TO FOREHEAD AND PER REPORT THERE ARE [address] FROM LAC ABOVE RIGHT EYEBROW; DRESSING IS CDI. BRUISING AND SWELLING NOTED TO RIGHT ORBITAL AND RIGHT EYE IS SLIGHTLY SHUT; NEURO CHECK WNL AND PT. UNSURE OF YEAR. MANAGER USER EXPERIENCE IN PLACE AND READING AFIB. VSS. EDCUATED CONFERENCE CENTER MANAGER LIGHT, ROOM, AND POC; VERBALIZES UNDERSTANDING. PT. CLEANED OF A LARGE INCONTINENCE OF URINE AND LINENS CHANGED; BRIEF APPLIED. HOB ELEVATED. PT. PROVIDED WITH PRN TYLENOL FOR VÁSQUEZ AND EYE PAIN; WILL REASSESS. PRUNE JUICE AND SURFAK PROVIDED TO ASSIST WITH BM. ENCOURAGED TO CALL FOR ANY NEEDS. CALL LIGHT IS IN REACH. WILL CONTINUE TO MONITOR.
[2020-02-14 20:00] VITALS: BP 144/92
[2020-02-14 22:00] VITALS: BP 121/68
--- NOTE | 2020-02-14 22:00 | NUR ---
PT. WITH SMALL AMOUNT OF BLEEDING NOTED DOWN FROM RIGHT EYEBROW ONTO FACE AND NECK; CLEANED AND BANDAGE ADJUSTED. DENIES NEEDS. VSS. ENCOURAGED TO CALL FOR ANY NEEDS.
[2020-02-15] VITALS (8 sets, daily range): BP systolic 100–120; BP diastolic 55–71
--- NOTE | 2020-02-15 | NUR ---
PT. CLEANED OF A MODERATE INCONTINENCE OF URINE; ANGELICA CARE PROVIDED AND NEW BRIEF APPLIED; SUTURES TO RIGHT EYEBROW INTACT AND SITE LEAKING BLOOD; CLEANED AND NEW BANDAGE APPLIED; REPOSITIONED ONTO LEFT SIDE AND PILLOW PLACED; PT. IS ABLE TO TURN. NEURO CHECK REMAINS SAME; DENIES NEEDS. CALL LIGHT IS IN REACH.
--- NOTE | 2020-02-15 01:30 | NUR ---
RESTING IN BED WITH EYES CLOSED; RESP. EVEN AND UNLABORED. CALL LIGHT IS IN REACH.
[2020-02-15 05:30] LABS: HEMOGLOBIN 14.5 g/dl (14.0-18.0); IMMATURE GRANULOCYTES 0.3 % (0.0-5.0); MEAN CELL VOLUME 96.2 fL CALC (80.0-100.0); MEAN CORPUSCULAR HGB CONC 32.2 g/dL CAL (32.0-36.0); NEUT# 5.62 thou/uL (1.82-7.42); RED BLOOD COUNT 4.68 mill/uL (4.70-6.10); RED CELL DISTRI WIDTH 13.4 % (11.5-15.5)
--- NOTE | 2020-02-15 05:32 | NUR ---
[id number] -PT. C/O VÁSQUEZ AND EYE PAIN 10/24; MEDICATED WITH ORDERED PRN TYLENOL; PT. CLEANED OF MODERATED INCONTINENCE OF URINE AND NEW PAD AND BRIEF APPLIED; PT. REPOSITIONED INTO BED. DENIES FURTHER NEEDS. PO FLUIDS OFFERED. CALL LIGHT IS IN REACH; BED ALARM ON. WILL CONTINUE TO MONITOR.
[2020-02-15 05:47] LABS: ALBUMIN 2.9 g/dL (3.2-5.0); ALKALINE PHOSPHATASE 95 u/l (38-126); ANION GAP 9 (6-22 (CALC)); BUN 13 mg/dL (8-23); BUN/CREATININE RATIO 14 (12-20 (CALC)); CARBON DIOXIDE 26 mmol/l (22-30); CHLORIDE 108 mmol/l (95-108); CREATININE 0.9 mg/dL (0.7-1.3); GFR > 60 ML/MIN (>=60 (CALC)); GFR FOR AFR.AMER. > 60 ML/MIN (>=60 (CALC)); SGOT/AST 19 u/l (19-48); SODIUM 140 mmol/l (137-146); TOTAL PROTEIN 5.2 g/dL (6.3-8.2)
[2020-02-15 06:02] LABS: BILIRUBIN, TOTAL 1.8 mg/dL (0.0-1.4)
[2020-02-15 06:32] LABS: INTERNATIONAL NORMALIZED RATIO 1.5 RATIO (0.7-1.3); PROTHROMBIN TIME 15.1 SECONDS (9.0-12.5)
--- NOTE | 2020-02-15 07:32 | NUR ---
PT RESTING QUIETLY ON STRETCHER, WATCHING TV, PLACED URINAL AT PTS LAP, AND PT WAS ABLE TO GET URINE. ICE WATER GIVEN TO PT ON REQUEST.
--- NOTE | 2020-02-15 08:04 | NUR ---
PT EATING BREAKFAST, PUREED THIS AM, IS ABLE TO LIFT FOOD UP TO MOUTH AND EAT MUCH BETTER THAN YESTERDAY. BRUISING REMAINS AROUND RIGHT EYE FROM INJURY YESTERDAY. BUT PT DENIES ANY VISUAL LOSS
--- NOTE | 2020-02-15 08:21 | NUR ---
DR. HERNANDEZ EXAMINING PT.
--- NOTE | 2020-02-15 09:57 | NUR ---
PT SLEEPING AT THIS TIME, VITAL SIGNS STABLE. LIGHTS TURNED OFF.
--- NOTE | 2020-02-15 10:06 | NUR ---
REITERATED TO PT THAT HE NEEDS TO USE CALL LIGHT IF HE WANTS TO GET UP ON SIDE OF BED. TURNED PT TO RIGHT SIDE.
--- NOTE | 2020-02-15 10:28 | NUR ---
NOLAN THERAPIST HERE FOR SWALLOWING TEST.
--- NOTE | 2020-02-15 10:56 | NUR ---
PT SLEEPING AT THIS TIME, VITAL SIGNS REMAIN STABLE, NO DISTRESS NOTED.
--- NOTE | 2020-02-15 11:17 | NUR ---
SON AT BEDSIDE, TALKING WITH PT. PT ALERT/ORIENTED X3.
--- NOTE | 2020-02-15 11:34 | NUR ---
SON AT BEDSIDE FEEDING PT WITH THICKENED FOOD
--- NOTE | 2020-02-15 11:34 | NUR ---
MEAL TRAY GIVEN, PT SITTING UP EATING
--- NOTE | 2020-02-15 12:16 | NUR ---
CALLED [facility] FOR BED TO TRANSFER PT TO [facility] WITH TELEMETRY AFTER PT TEST IS DONE
--- NOTE | 2020-02-15 13:14 | NUR ---
ROOM ASSIGNMENT RECEIVED FOR PT ON MED SURG
--- NOTE | 2020-02-15 13:58 | NUR ---
REPORT REC FROM MOHIT CULP
--- NOTE | 2020-02-15 14:03 | NUR ---
REPORT GIVEN TO MED SURG NURSE FOR CONTINUATION OF CARE AFTER PT BRINGS PT BACK FROM SWALLOW TEST.
--- NOTE | 2020-02-15 15:24 | NUR ---
PT SITTING IN BED. A&O. NO DISTRESS NOTED. BRUISING TO RT EYE NOTED. LAC TO RT EYEBROW WITH DRESSING IN PLACE. PT DENIES ANY PAIN AT THIS TIME. LIB[employer] PLACED ON PT. NO OTHER NEEDS AT THIS TIME. CALL LIGHT IN REACH. BE DIN LOWEST POSITION. CALL LIGHT IN REACH. CONTINUE TO MONITOR.
--- NOTE | 2020-02-15 16:17 | NUR ---
NEW TELFA DRESSING APPLIED OVER SUTURES
--- NOTE | 2020-02-15 19:01 | NUR ---
REPORT FROM YUVAL CULP. ALERT AND ORIENTED. PT NOTED SITTING UP AT 90 DEGREES DRINKING NECTAR THICKEN LIQUIDS. NO APPARENT DISTRESS NOTED. TELFA PAD NOTED TO RIGH EYE BROW, CDI. PT DENIES ANY PAIN OR DISCOMFORT. DISCUSSED POC. PT VERBALIZED UNDERSTANDIND. NO CURRENT WANTS OR NEEDS. CALL LIGHT WITHIN REACH. WILL CONTINUE TO MONITOR.
--- NOTE | 2020-02-15 22:05 | NUR ---
DAUGHTER SAMIR CALLED, PASSCODE PROVIDED TO NURSE AT THIS TIME. UPDATE PROVIDED.
[2020-02-16] VITALS: BP 120/76
--- NOTE | 2020-02-16 02:32 | NUR ---
PT RESTING IN BED WITH EYES CLOSED. NO APPARENT DISTRESS NOTED. RESPIRATIONS EVEN AND UNLABORED. PROCUREMENT COST COORDINATOR IN PLACE. CALL LIGHT WITHIN REACH. WILL CONTINUE TO MONITOR.
[2020-02-16 04:00] VITALS: BP 119/67
--- NOTE | 2020-02-16 05:48 | NUR ---
PT MEDICATED ORDERED. HOB ELEVATED TO 9O DEGREES FOR ASPIRATION PRECAUTIONS. NECTAR THICKENED LIQUIDS PROVIDED AT THIS TIME. PT DENIES ANY PAIN OR DISCOMFORT. CALL LIGHT WITHIN REACH. WILL CONTINUE TO MONITOR.
--- NOTE | 2020-02-16 06:55 | NUR ---
REPORT RECEIVED FROM WILFREDO ALVARAOD. PT RESTING IN BED, NO S/S OF DISTRESS AT THIS TIME. WILL CONTINUE TO MONITOR.
[2020-02-16 07:25] VITALS: BP 121/69
--- NOTE | 2020-02-16 07:25 | NUR ---
PT RESTING IN BED, ALERT AND ORIETNED.VS OBTAINED AND ASSESSMENT COMPLETED. RESPIRATIONS EVEN AND UNLABORED ON RA, WHEEZES NOTED THROUGH OUT LUNGS. PEDAL PULSES ARE STRONG. PT REPORTS HAVING DISCOMFORT IN THE RIGHT EYE, DENIES ANY NEEDS AT THIS TIME. PT PULLED UP IN BED AND REPOSITIONED. TELE IN PLACE. CALL LOWE WITHIN REACH. WILL CONTINUE TO MONITOR.
--- NOTE | 2020-02-16 08:22 | NUR ---
LAB AT BEDSIDE
[2020-02-16 08:51] LABS: HEMATOCRIT 46.9 % (39.0-50.0); HEMOGLOBIN 15.3 g/dl (14.0-18.0); IMMATURE GRANULOCYTES 0.3 % (0.0-5.0); MEAN CELL VOLUME 96.3 fL CALC (80.0-100.0); MEAN CORPUSCULAR HGB 31.4 pG CALC (26.0-32.0); MEAN CORPUSCULAR HGB CONC 32.6 g/dL CAL (32.0-36.0); NEUT# 5.13 thou/uL (1.82-7.42); RED BLOOD COUNT 4.87 mill/uL (4.70-6.10); RED CELL DISTRI WIDTH 13.6 % (11.5-15.5)
[2020-02-16 09:03] LABS: ANION GAP 7 (6-22 (CALC)); BUN 16 mg/dL (8-23); BUN/CREATININE RATIO 17 (12-20 (CALC)); CARBON DIOXIDE 28 mmol/l (22-30); CHLORIDE 107 mmol/l (95-108); GFR > 60 ML/MIN (>=60 (CALC)); GFR FOR AFR.AMER. > 60 ML/MIN (>=60 (CALC)); POTASSIUM 4.3 mmol/l (3.5-5.1); SODIUM 138 mmol/l (137-146)
[2020-02-16 09:08] LABS: INTERNATIONAL NORMALIZED RATIO 1.2 RATIO (0.7-1.3); PROTHROMBIN TIME 11.5 SECONDS (9.0-12.5)
--- NOTE | 2020-02-16 12:05 | NUR ---
SPEECH THERAPY AT BEDSIDE
[2020-02-16 12:35] VITALS: BP 110/57
--- NOTE | 2020-02-16 13:31 | NUR ---
The patient was resting upon entry of the DIRECTOR OF EVENT MANAGEMENT. He was easily awoken and was alert and oriented. He was repositioned into a 90 degree seating position by nursing staff prior to the PO trials and lunch. The pt responded to the DIRECTOR OF EVENT MANAGEMENT's questions with appropriate responses. He was seen during lunch in order to observe his behaviors to the modified pureed solid and nectar liquid diet. Mr. Ramon required verbal cues to take small bites and to reduce his pace of eating. The DIRECTOR OF EVENT MANAGEMENT administered a soft solid PO trial to the pt and he was able to manage the administration. Mr. Ramon took multiple bite sized trials followed by an independent alternation of nectar liquids with the soft solid trials. Following 4 trials of the soft soild, Mr. Ramon presented with a cough response and a throat clear, however he presented with a clear voice following the cough response. Mr. Ramon coughed intermittently throughout the meal, but presented with a strong cough to clear material. No signs/symptoms of penetration or aspiration with nectar thin liquids. The DIRECTOR OF EVENT MANAGEMENT observed a weakend voice at the end of the meal compared to his voice prior to his lunch as well as heavier breathing. Continue DIRECTOR OF EVENT MANAGEMENT recommendation of pureed solids, nectar think liquids, small bites, slowed rate of intake, and remaining at 90 degrees.
--- NOTE | 2020-02-16 16:10 | NUR ---
Discharge instructions given. Patient verbalizes understanding of same. Discharged in stable condition via Medical Transport to [facility] with *Other. All belongings sent with pt.
--- NOTE | 2020-02-16 16:31 | NUR ---
NURSE TO NURSE REPORT CALLED TO [facility] RECEIVED REPORT
== END 2020-02-16 16:13 | DRG 940 ==
LOC: ED 10:32 → ED-I 11:18 → ED 11:18 → ED-I 13:55 → ED 14:22 → ICU 14:23 → ED-I 14:23 → ICU 18:10 → MS2 02-15 14:15
PROVIDERS: Nurse Practitioner; Student in an Organized Health Care Education/Training Program; ADMIT Internal Medicine; ATTEND Internal Medicine
PROC: 0JQ10ZZ Repair Face Subcutaneous Tissue and Fascia, Open Approach (ICD-10-PCS; principal; 2020-02-14)
DX: R79.1 Abnormal coagulation profile (principal); I48.20 Chronic atrial fibrillation, unspecified; T38.0X5A Adverse effect of glucocorticoids and synthetic analogues, initial encounter; T36.95XA Adverse effect of unspecified systemic antibiotic, initial encounter; S01.111A Laceration without foreign body of right eyelid and periocular area, initial encounter; I11.0 Hypertensive heart disease with heart failure; I50.9 Heart failure, unspecified; S80.212A Abrasion, left knee, initial encounter; S80.01XA Contusion of right knee, initial encounter; R53.1 Weakness; M17.0 Bilateral primary osteoarthritis of knee; W01.0XXA Fall on same level from slipping, tripping and stumbling without subsequent striking against object, initial encounter; Y92.009 Unspecified place in unspecified non-institutional (private) residence as the place of occurrence of the external cause; Z85.819 Personal history of malignant neoplasm of unspecified site of lip, oral cavity, and pharynx; Z92.3 Personal history of irradiation; Z86.73 Personal history of transient ischemic attack (TIA), and cerebral infarction without residual deficits; Z79.01 Long term (current) use of anticoagulants; Z87.891 Personal history of nicotine dependence; Z86.79 Personal history of other diseases of the circulatory system; Z87.01 Personal history of pneumonia (recurrent); Z20.828 Contact with and (suspected) exposure to other viral communicable diseases

== ENCOUNTER 2021-01-12 15:04 | Observation (INO) | payer MEDICARE ==
[~2021-01-12] VITALS: Ht 172.7 cm; Wt 100.0 kg
--- NOTE | 2021-01-12 15:04 | NUR ---
PATIENT TO ROOM VIA WHEELCHAIR.
[2021-01-12] MEDS ORDERED: CARVEDILOL25 MG PO (15:41)
[2021-01-12 15:58] LABS: HEMATOCRIT 46.7 % (39.0-50.0); HEMOGLOBIN 15.4 g/dl (14.0-18.0); IMMATURE GRANULOCYTES 0.2 % (0.0-5.0); MEAN CELL VOLUME 94.7 fL CALC (80.0-100.0); MEAN CORPUSCULAR HGB 31.2 pG CALC (26.0-32.0); NEUT# 3.89 thou/uL (1.82-7.42); RED BLOOD COUNT 4.93 mill/uL (4.70-6.10); RED CELL DISTRI WIDTH 13.2 % (11.5-15.5)
[2021-01-12 16:14] LABS: ALBUMIN 3.7 g/dL (3.2-5.0); ALKALINE PHOSPHATASE 114 u/l (38-126); ANION GAP 8 (6-22 (CALC)); BILIRUBIN, TOTAL 1.1 mg/dL (0.0-1.4); BUN 15 mg/dL (8-23); BUN/CREATININE RATIO 13 (12-20 (CALC)); CARBON DIOXIDE 27 mmol/l (22-30); CHLORIDE 106 mmol/l (95-108); CREATININE 1.2 mg/dL (0.7-1.3); GFR 59 ML/MIN (>=60 (CALC)); GFR FOR AFR.AMER. > 60 ML/MIN (>=60 (CALC)); LIPASE 127 u/l (23-300); MAGNESIUM 1.8 mg/dL (1.6-2.3); POTASSIUM 3.9 mmol/l (3.5-5.1); SGOT/AST 26 u/l (19-48); SODIUM 138 mmol/l (137-146); TOTAL PROTEIN 6.6 g/dL (6.3-8.2)
[2021-01-12 16:15] LABS: INTERNATIONAL NORMALIZED RATIO 1.8 RATIO (0.7-1.3); PROTHROMBIN TIME 18.6 SECONDS (9.0-12.5)
[2021-01-12 16:44] LABS: TSH, 3RD GENERATION 3.31 uIU/mL (0.47 - 4.68)
--- NOTE | 2021-01-12 19:53 | NUR ---
CONDOM CATHETER PLACED ON PATIENT. PT IS INCONTINENT OF URINE. STRAIGHT CATH ATTEMPTED. NO URINE OBTAINED WITH STRAIGHT CATH.
--- NOTE | 2021-01-12 21:33 | NUR ---
Reassessment of patient completed. No distress noted.
--- NOTE | 2021-01-12 21:34 | NUR ---
TELEPHONE REPORT RECEIVED FROM Daphney PARKINSON RN IN ED.
--- NOTE | 2021-01-12 21:41 | NUR ---
Admission Note Report Given to: DAVID CULP Transported by: Wheelchair X Stretcher Transported with: X Nurse Transporter X Patent IV O2 X Wool Sampler Location: ICU X MS2
[2021-01-12 22:32] LABS: URINE BILIRUBIN - DIPSTICK NEGATIVE (NEGATIVE); URINE BLOOD DIPSTICK MODERATE (NEGATIVE); URINE COLOR YELLOW; URINE GLUCOSE - DIPSTICK NEGATIVE (NEGATIVE); URINE KETONE TRACE mg/dL (NEGATIVE); URINE LEUK ESTERASE NEGATIVE (NEGATIVE); URINE PH 6.5 (4.5-8.0); URINE PROTEIN - DIPSTICK NEGATIVE (NEG-TRACE)
[2021-01-12 22:39] LABS: URINE NITRITE - DIPSTICK NEGATIVE (Negative)
[2021-01-12 22:53] LABS: URINE BACTERIA FEW hpf; URINE MUCUS FEW hpf (NONE-FEW); URINE SQUAMOUS EPITHELIAL CELL FEW EPI/hpf (0-FEW); URINE WBC 0-2 WBC/hpf (0-5)
--- NOTE | 2021-01-13 | NUR ---
PT APPEARS TO BE SLEEPING COMFORTABLY. RESPIRATIONS REGULAR AND UNLABORED. CALL LOWE REMAINS WITHIN REACH.
[2021-01-13 04:56] VITALS: BP 134/73
[2021-01-13 05:50] LABS: HEMATOCRIT 44.4 % (39.0-50.0); HEMOGLOBIN 14.3 g/dl (14.0-18.0); IMMATURE GRANULOCYTES 0.5 % (0.0-5.0); MEAN CELL VOLUME 95.9 fL CALC (80.0-100.0); MEAN CORPUSCULAR HGB 30.9 pG CALC (26.0-32.0); MEAN CORPUSCULAR HGB CONC 32.2 g/dL CAL (32.0-36.0); NEUT# 2.75 thou/uL (1.82-7.42); RED BLOOD COUNT 4.63 mill/uL (4.70-6.10); RED CELL DISTRI WIDTH 13.2 % (11.5-15.5)
[2021-01-13 06:07] LABS: ALBUMIN 3.1 g/dL (3.2-5.0); ALKALINE PHOSPHATASE 97 u/l (38-126); ANION GAP 10 (6-22 (CALC)); BUN 18 mg/dL (8-23); BUN/CREATININE RATIO 17 (12-20 (CALC)); CARBON DIOXIDE 25 mmol/l (22-30); CHLORIDE 107 mmol/l (95-108); CREATININE 1.1 mg/dL (0.7-1.3); GFR > 60 ML/MIN (>=60 (CALC)); GFR FOR AFR.AMER. > 60 ML/MIN (>=60 (CALC)); POTASSIUM 3.9 mmol/l (3.5-5.1); SGOT/AST 21 u/l (19-48); SODIUM 138 mmol/l (137-146); TOTAL PROTEIN 5.6 g/dL (6.3-8.2)
--- NOTE | 2021-01-13 06:07 | NUR ---
PT DENIES NEEDS AT THIS TIME. RESTING IN BED COMFORTABLY. SPO2 96%. CALL LOWE REMAINS WITHIN REACH, AGREES TO CALL PRN. PT DENIES NEEDS AT THIS TIME.
[2021-01-13 06:17] LABS: INTERNATIONAL NORMALIZED RATIO 1.6 RATIO (0.7-1.3)
--- NOTE | 2021-01-13 08:04 | NUR ---
Pt screened by [facility] currently recommends further evaluation if medical agrees.
--- NOTE | 2021-01-13 08:45 | NUR ---
SP02 92% ON ROOM AIR WHILE AT REST.
[2021-01-13 10:45] VITALS: BP 98/63
--- NOTE | 2021-01-13 11:22 | NUR ---
S/P BEDSIDE ST EVAL. DIET CHANGED TO MECHANICAL SOFT WITH NECTAR THICK LIQUIDS. Nasrin CHRISTENSEN GIS SOFTWARE DEVELOPER MADE AWARE. DIRECTED TO REMOVE THIN LIQUIDS AND PROVIDE NECTAR THICK LIQUIDS.
--- NOTE | 2021-01-13 12:59 | NUR ---
DR TANNER AND KRISTINA,ANNEHEMIAH AT BEDSIDE
--- NOTE | 2021-01-13 13:10 | NUR ---
PT RESTING IN SEMI FOWLERS POSITION. PT IS A/OX3 WITH SOME CONFUSION. RESPIRATIONS ARE EVEN AND UNLABORED ON ROOM AIR. 95%. LUNG SOUNDS ARE CLEAR.HEART RHYTHM NORMAL WITH TELE IN PLACE. BOWEL SOUNDS ARE ACTIVE. #20G EMS LH FLUSHED, SITE APPEARS HEALTHY AND PATENT. PT COMPLAINS OF 5/10 RIGHT LEG PAIN, MD INFORMED. NEW ORDERS TO BE OBTAINED. PEDAL PULSES WEAK. SKIN INTACT. PT DENIES OF ANY PAINS OR DISCOMFORTS AT THIS TIME. ALL SAFETY PRECAUTIONS ARE IN PLACE WITH CALL LIGHT IN REACH.AIR/CONTACT PRECAUTIONS. WILL CONTINUE TO MONITOR.
[2021-01-13 14:30] VITALS: BP 108/78
--- NOTE | 2021-01-13 15:06 | NUR ---
DAUGHTER CALLED FOR UPDATE. PASSCODE PROVIDED.
--- NOTE | 2021-01-13 16:54 | NUR ---
PT SLEEPING IN SEMI FOWLERS POSITION. RESPIRATIONS ARE EVEN AND UNLABORED ON ROOM AIR. TELE MONITORING IN PLACE. #20GEMS LH REMAINS. NO SIGNS OF ANY PAINS OR DISCOMFORTS AT THIS TIME. ALL SAFETY AND ISOLATION PRECAUTIONS ARE IN PLACE WITH CALL LIGHT IN REACH. WILL CONTINUE TO MONITOR.
--- NOTE | 2021-01-13 18:12 | NUR ---
RT CALLED FOR I.S. METAL CUTTER NOTIFIED THAT I.S ARE NOT AVAILABLE.
[2021-01-13 19:57] VITALS: BP 130/64
--- NOTE | 2021-01-13 21:36 | NUR ---
PHYSICAL ASSESMENT COMPLETE. PT CURRENTLY DENIES PAIN OR DISCOMFORT. SCHEDULED MEDICATIONS AND PRN MEDICATION ADMINISTERED, SEE E-MAR. PT DENIES ANY NEEDS AT THIS TIME. PLAN OF CARE REVIEWED, PT DENIES QUESTIONS, VERBALIZES UNDERSTANDING. ITEMS WITHIN REACH, BED LOCKED IN LOW POSITION W/ BEDRAILS UP X2. CALL LOWE WITHIN REACH, AGREES TO CALL PRN.
--- NOTE | 2021-01-14 00:01 | NUR ---
PT LAYING IN BED WATCHING TV, APPEARS COMFORTABLE AND IN NO DISTRESS. RESPIRATIONS REGULAR AND UNLABORED. ITEMS REMAIN WITHIN REACH, CALL LOWE REMAINS WITHIN REACH. BED REMAINS LOCKED AND IN LOW POSITION WITH BEDRAILS UP X2. WILL CONTINUE TO MONITOR.
[2021-01-14 00:50] VITALS: BP 100/73
--- NOTE | 2021-01-14 04:00 | NUR ---
PT RESTING IN BED, NO SIGNS OF DISTRESS NOTED, RESP EVEN AND UNLABORED. PT VOICES NO NEEDS OR COMPLAINTS AT THIS TIME. CALL LIGHT IN REACH, CONTINUE TO MONITOR.
[2021-01-14 05:04] VITALS: BP 130/82
--- NOTE | 2021-01-14 07:00 | NUR ---
RECIEVED REPORT FROM SUNI FLORES
[2021-01-14 07:03] LABS: HEMATOCRIT 44.2 % (39.0-50.0); HEMOGLOBIN 14.6 g/dl (14.0-18.0); IMMATURE GRANULOCYTES 0.4 % (0.0-5.0); MEAN CELL VOLUME 94.6 fL CALC (80.0-100.0); MEAN CORPUSCULAR HGB 31.3 pG CALC (26.0-32.0); NEUT# 4.17 thou/uL (1.82-7.42); RED BLOOD COUNT 4.67 mill/uL (4.70-6.10)
[2021-01-14 07:33] LABS: ALBUMIN 3.2 g/dL (3.2-5.0); ALKALINE PHOSPHATASE 95 u/l (38-126); ANION GAP 10 (6-22 (CALC)); BUN 22 mg/dL (8-23); BUN/CREATININE RATIO 22 (12-20 (CALC)); C-REACTIVE PROTEIN 4.2 mg/dL (0-0.9); CARBON DIOXIDE 24 mmol/l (22-30); CHLORIDE 108 mmol/l (95-108); GFR > 60 ML/MIN (>=60 (CALC)); GFR FOR AFR.AMER. > 60 ML/MIN (>=60 (CALC)); POTASSIUM 4.2 mmol/l (3.5-5.1); SGOT/AST 20 u/l (19-48); SODIUM 138 mmol/l (137-146); TOTAL PROTEIN 5.8 g/dL (6.3-8.2)
[2021-01-14 07:35] LABS: BILIRUBIN, TOTAL 0.5 mg/dL (0.0-1.4)
[2021-01-14 08:27] VITALS: BP 101/66
--- NOTE | 2021-01-14 08:27 | NUR ---
PT RESTING IN SEMI FOWLERS. PT IS A/O X2 WITH SOME CONFUSION, HARD TO HEAR. ASSESSMENT AND VITALS COMPLETED. BP 101/60, HR 84, O2 93% ON ROOM AIR. REPSIRATIONS ARE EVEN AND UNLABORED WITH NO DISTRESS NOTED. HEART RHYTHM IRREGULAR, AFIB PER TELE MONITORING. LUNG SOUNDS ARE COARSE. BOWEL SOUNDS ARE ACTIVE. #20G LH EMS FLUSHED, SITE APPEARS HEALTHY AND PATENT. SKIN INTACT. PT COMPLAINS OF 5/10 PAIN IN RIGHT LEG.TYLENOL TO BE ADMINISTERED. PEDAL PULSES WEAK. PT DENIES OF ANY ADDITIONAL PAINS OR DISCOMFORTS AT THIS TIME. ALL SAFETY PRECAUTIONS ARE IN PLACE WITH CALL LIGHT IN REACH. ISOLATION PRECAUTIONS. WILL CONTINUE TO MONITOR.
[2021-01-14 09:05] LABS: INTERNATIONAL NORMALIZED RATIO 1.5 RATIO (0.7-1.3); PROTHROMBIN TIME 15.2 SECONDS (9.0-12.5)
[2021-01-14 11:03] VITALS: BP 109/63
--- NOTE | 2021-01-14 11:45 | NUR ---
DR TANNER AND KRISTINA,ANNEHEMIAH AT BEDSIDE
--- NOTE | 2021-01-14 12:13 | NUR ---
PT RESTING IN SEMI FOWLERS POSITION EATING LUNCH. RESPIRATIONS ARE EVEN AND UNLABORED ON ROOM AIR. #20G LH REMAINS IN PLACE. TELE MONITORING IN PLACE. PT DENIES OF ANY PAINS OR DISCOMFORTS AT THIS TIME. ALL SAFETY PRECAUTIONS ARE IN PLACE WITH CALL LIGHT IN REACH. WILL CONTINUE TO MONITOR.
--- NOTE | 2021-01-14 13:38 | NUR ---
SPEECH THERAPY AT BEDSIDE
--- NOTE | 2021-01-14 13:43 | NUR ---
Pt received upright in bed on room air. Pt makes attempts to communicate verbally with clinician. Vocal quality is hoarse and nearly aphonic 2/2 hx of head and neck cancer. Pt given PO trials of nectar thick liquids, pureed, and mechanical soft solids d/t known history of silent aspiration of thin liquids on last MBS on 02/15/20. Pt tolerate PO trials without overt s/s of penetration/aspiration. Pt presented with a mildly increased mastication time, oral holding, and multiple swallows per bolus presentation with liquids and mechnaical soft solids. Pureed solids were tolerated well and oropharyngeal swallow appeared functional. Pt reports he should be going to rehabilitation today. Recommendations Mechanical soft solids and nectar thick liquids Aspiration precautions: HOB upright, small bites and sips, slow rate, alternate liquids and solids Recommend repeat MBS as out-patient when COVID19 resolves to advance liquids.
--- NOTE | 2021-01-14 13:53 | NUR ---
PHYSICAL THERAPY AT BEDSIDE
[2021-01-14] MEDS ORDERED: ZITHROMAX250 MG PO (14:08)
--- NOTE | 2021-01-14 15:02 | NUR ---
DIRECTOR OF LOGISTICS INFORMED OF ETA [facility] IS 1630 FOR DC TO [facility]. PT INFORMED.
[2021-01-14 15:06] VITALS: BP 110/61
--- NOTE | 2021-01-14 15:44 | NUR ---
PT RESTING IN SEMI FOWLERS POSITION WATCHING TV. RESPIRATIONS ARE EVEN AND UNLABORED ON ROOM AIR. #20G LH INFUSING WITH IVF ANTIBIOTICS, SITE REMAINS HEALTHY AND PATENT. TELE MONITORING IN PLACE. PT DENIES OF ANY PAINS OR DISCOMFORTS AT THIS TIME. ALL SAFTEY PRECAUTIONS ARE IN PLACE WITH CALL LIGHT IN REACH. WILL CONTINUE TO MONITOR.
--- NOTE | 2021-01-14 16:08 | NUR ---
IV REMOVED WTIH CATH STILL INTACT. TELE MONITORING REMOVED, ER NOTIFIED.
--- NOTE | 2021-01-14 18:09 | NUR ---
CLOTHES BROUGHT IN BY FAMILY. WAITING TRANSPORTATION.
--- NOTE | 2021-01-14 18:23 | NUR ---
Discharge instructions given. Patient verbalizes understanding of same. Discharged in stable condition via Medical Transport to *Other with staff. All belongings sent with pt. PT DC TO [facility] VIA [facility]SP[facility] IN STABLE CONDITION WITH ALL DC INSTRUCTIONS AND PERSONAL BELONGINGS.
--- NOTE | 2021-01-14 18:28 | NUR ---
REPORT GIVEN TO ALINA AT [facility]
--- NOTE | 2021-01-14 18:38 | NUR ---
DAUGHTER INFORMED OF PT DC
--- NOTE | 2021-01-15 07:45 | NUR ---
01/14/21 PT note Patient is seen for functional training and DBE. He is able to perform 4 sec breath holds and forced expiration with VC. He is able to transfer supine to sit to stand with mod assist of 1. He stood with mod assist of 1 and maintained static standing x 5 min even being able to weight shift STS. He was able to tell me that he amnbulates in home with a straight cane. His Am Pac score is 16 indicating he would do well at home with family support and follow up HH PT and nursing to maximize his independence
--- NOTE | 2021-01-15 10:00 | NUR ---
FINAL BLOOD CX SHOWS STAP EPI, CONTAMINANT. REPORTED TO NATHANIEL. NO NEW ORDERS.
== END 2021-01-14 18:20 ==
LOC: ED 15:04 → ED-I 18:50 → ED 19:01 → ED-I 19:02 → MS2 19:02
PROVIDERS: Emergency Medicine; Nurse Practitioner; ADMIT Internal Medicine; ATTEND Internal Medicine
PROC: XW033E5 Introduction of Remdesivir Anti-infective into Peripheral Vein, Percutaneous Approach, New Technology Group 5 (ICD-10-PCS; principal; 2021-01-14)
DX: U07.1 COVID-19 (principal); J12.82 Pneumonia due to coronavirus disease 2019; J44.0 Chronic obstructive pulmonary disease with (acute) lower respiratory infection; I11.0 Hypertensive heart disease with heart failure; I50.9 Heart failure, unspecified; I48.20 Chronic atrial fibrillation, unspecified; F32.9 Major depressive disorder, single episode, unspecified; R47.01 Aphasia; R41.0 Disorientation, unspecified; R79.1 Abnormal coagulation profile; T45.515A Adverse effect of anticoagulants, initial encounter; Z79.01 Long term (current) use of anticoagulants; Z85.819 Personal history of malignant neoplasm of unspecified site of lip, oral cavity, and pharynx; Z86.73 Personal history of transient ischemic attack (TIA), and cerebral infarction without residual deficits; Z87.01 Personal history of pneumonia (recurrent); Z87.891 Personal history of nicotine dependence; Z86.79 Personal history of other diseases of the circulatory system
CPT/HCPCS: G0378; J2997

== ENCOUNTER 2021-05-24 11:10 | Emergency (ER) | payer MEDICARE ==
[~2021-05-24] VITALS: Ht 172.7 cm; Wt 100.0 kg
[~2021-05-24 11:10] MED LIST changes: +ZITHROMAX250 MG PO
[2021-05-24 11:42] LABS: HEMATOCRIT 48.5 % (39.0-50.0); HEMOGLOBIN 15.8 g/dl (14.0-18.0); IMMATURE GRANULOCYTES 0.2 % (0.0-5.0); MEAN CELL VOLUME 96.2 fL CALC (80.0-100.0); MEAN CORPUSCULAR HGB 31.3 pG CALC (26.0-32.0); MEAN CORPUSCULAR HGB CONC 32.6 g/dL CAL (32.0-36.0); NEUT# 8.21 thou/uL (1.82-7.42); RED BLOOD COUNT 5.04 mill/uL (4.70-6.10); RED CELL DISTRI WIDTH 12.2 % (11.5-15.5)
[2021-05-24 12:00] LABS: ALBUMIN 3.6 g/dL (3.2-5.0); ALKALINE PHOSPHATASE 126 u/l (38-126); BUN 15 mg/dL (8-23); BUN/CREATININE RATIO 15 (12-20 (CALC)); CHLORIDE 109 mmol/l (95-108); GFR > 60 ML/MIN (>=60 (CALC)); GFR FOR AFR.AMER. > 60 ML/MIN (>=60 (CALC)); POTASSIUM 4.1 mmol/l (3.5-5.1); SGOT/AST 18 u/l (19-48); SODIUM 144 mmol/l (137-146)
[2021-05-24 12:01] LABS: ANION GAP 9 (6-22 (CALC)); BILIRUBIN, TOTAL 1.5 mg/dL (0.0-1.4); CARBON DIOXIDE 30 mmol/l (22-30); TOTAL PROTEIN 7.2 g/dL (6.3-8.2)
[2021-05-24 13:42] LABS: INTERNATIONAL NORMALIZED RATIO 1.7 RATIO (0.7-1.3); PROTHROMBIN TIME 17.3 SECONDS (9.0-12.5)
[2021-05-24 17:08] VITALS: BP 141/74
== END 2021-05-24 16:15 | disposition short-term general hospital (02) ==
LOC: ED 11:10
PROVIDERS: Family Medicine
DX: J18.9 Pneumonia, unspecified organism (principal); J91.8 Pleural effusion in other conditions classified elsewhere; I48.91 Unspecified atrial fibrillation; I11.0 Hypertensive heart disease with heart failure; I50.9 Heart failure, unspecified; F32.A Depression, unspecified; Z87.820 Personal history of traumatic brain injury; Z86.73 Personal history of transient ischemic attack (TIA), and cerebral infarction without residual deficits; Z85.819 Personal history of malignant neoplasm of unspecified site of lip, oral cavity, and pharynx; Z92.3 Personal history of irradiation; Z87.01 Personal history of pneumonia (recurrent); Z79.01 Long term (current) use of anticoagulants; Z20.822 Contact with and (suspected) exposure to COVID-19

== ENCOUNTER 2021-08-31 14:21 | Observation (INO) | payer MEDICARE ==
[2021-08-31] VITALS (11 sets, daily range): BP systolic 98–132; BP diastolic 57–79
[~2021-08-31] VITALS: Ht 172.7 cm; Wt 90.0 kg
[2021-08-31 16:14] LABS: HEMOGLOBIN 13.9 g/dl (14.0-18.0); IMMATURE GRANULOCYTES 0.2 % (0.0-5.0); MEAN CELL VOLUME 95.5 fL CALC (80.0-100.0); MEAN CORPUSCULAR HGB 31.4 pG CALC (26.0-32.0); MEAN CORPUSCULAR HGB CONC 32.9 g/dL CAL (32.0-36.0); NEUT# 6.21 thou/uL (1.82-7.42); RED BLOOD COUNT 4.43 mill/uL (4.70-6.10); RED CELL DISTRI WIDTH 14.5 % (11.5-15.5)
[2021-08-31 16:15] LABS: HEMATOCRIT 42.3 % (39.0-50.0)
[2021-08-31 16:28] LABS: INTERNATIONAL NORMALIZED RATIO 2.1 RATIO (0.7-1.3); PROTHROMBIN TIME 21.2 SECONDS (9.0-12.5)
[2021-08-31 16:30] LABS: ALBUMIN 3.5 g/dL (3.2-5.0); ALKALINE PHOSPHATASE 129 u/l (38-126); ANION GAP 9 (6-22 (CALC)); BUN 15 mg/dL (8-23); BUN/CREATININE RATIO 14 (12-20 (CALC)); CARBON DIOXIDE 30 mmol/l (22-30); CHLORIDE 107 mmol/l (95-108); GFR > 60 ML/MIN (>=60 (CALC)); GFR FOR AFR.AMER. > 60 ML/MIN (>=60 (CALC)); POTASSIUM 3.6 mmol/l (3.5-5.1); SGOT/AST 19 u/l (19-48); SODIUM 142 mmol/l (137-146); TOTAL PROTEIN 6.4 g/dL (6.3-8.2)
[2021-08-31 16:33] LABS: BILIRUBIN, TOTAL 0.5 mg/dL (0.0-1.4)
[2021-09-01 05:39] LABS: HEMATOCRIT 39.9 % (39.0-50.0); MEAN CELL VOLUME 95.9 fL CALC (80.0-100.0); MEAN CORPUSCULAR HGB 31.3 pG CALC (26.0-32.0); MEAN CORPUSCULAR HGB CONC 32.6 g/dL CAL (32.0-36.0); RED BLOOD COUNT 4.16 mill/uL (4.70-6.10); RED CELL DISTRI WIDTH 14.7 % (11.5-15.5)
[2021-09-01 05:49] LABS: ANION GAP 8 (6-22 (CALC)); BUN 14 mg/dL (8-23); BUN/CREATININE RATIO 15 (12-20 (CALC)); CARBON DIOXIDE 28 mmol/l (22-30); CHLORIDE 108 mmol/l (95-108); CREATININE 0.9 mg/dL (0.7-1.3); GFR > 60 ML/MIN (>=60 (CALC)); GFR FOR AFR.AMER. > 60 ML/MIN (>=60 (CALC)); POTASSIUM 3.9 mmol/l (3.5-5.1); SODIUM 140 mmol/l (137-146)
[2021-09-01 05:52] LABS: INTERNATIONAL NORMALIZED RATIO 2.3 RATIO (0.7-1.3)
[2021-09-01 08:00] VITALS: BP 101/56
[2021-09-01 10:59] VITALS: BP 110/69
== END 2021-09-01 11:15 ==
LOC: ED 14:21 → ED-I 17:03 → ED 17:15 → MS2 17:16
PROVIDERS: Hospitalist; ADMIT Family Medicine; ATTEND Family Medicine
PROC: 0HQ1XZZ Repair Face Skin, External Approach (ICD-10-PCS; principal; 2021-08-31)
DX: S01.81XA Laceration without foreign body of other part of head, initial encounter (principal); M54.6 Pain in thoracic spine; I48.91 Unspecified atrial fibrillation; I11.0 Hypertensive heart disease with heart failure; I50.9 Heart failure, unspecified; F03.90 Unspecified dementia, unspecified severity, without behavioral disturbance, psychotic disturbance, mood disturbance, and anxiety; F32.A Depression, unspecified; W05.0XXA Fall from non-moving wheelchair, initial encounter; Y92.099 Unspecified place in other non-institutional residence as the place of occurrence of the external cause; Z92.3 Personal history of irradiation; Z85.819 Personal history of malignant neoplasm of unspecified site of lip, oral cavity, and pharynx; Z87.01 Personal history of pneumonia (recurrent); Z79.01 Long term (current) use of anticoagulants; Z87.891 Personal history of nicotine dependence; Z86.79 Personal history of other diseases of the circulatory system; Z86.73 Personal history of transient ischemic attack (TIA), and cerebral infarction without residual deficits; Z20.822 Contact with and (suspected) exposure to COVID-19

== ENCOUNTER 2023-06-19 23:04 | Emergency (ER) | payer MEDICARE, OTHER ==
[~2023-06-19] VITALS: Ht 172.7 cm; Wt 113.0 kg
[~2023-06-19 23:04] MED LIST changes: +ACETAMINOPHEN325 MG PO; +DECADRON2 MG PO; +DULCOLAX10 MG RE; +ELIQUIS5 MG PO; +ESCITALOPRAM OX20 MG PO; +GUAIFENESI100 MG/51 PO; +MILK OF MAGNES7.75 %; +MIRALAX17 GM; +TUMS E-X 750750 MG PO; +VOLTAREN75 MG
[2023-06-19 23:26] VITALS: BP 142/96
[2023-06-19 23:31] VITALS: BP 101/68
[2023-06-19 23:45] VITALS: BP 112/79
[2023-06-20] VITALS (15 sets, daily range): BP systolic 96–151; BP diastolic 57–95
[2023-06-20 00:15] LABS: BASO% 0.3 % (0-3); HEMATOCRIT 44.1 % (39.0-50.0); HEMOGLOBIN 14.1 g/dl (14.0-18.0); IMMATURE GRANULOCYTES 0.3 % (0.0-5.0); LYMPH% 5.9 % (15-41); MEAN CELL VOLUME 96.3 fL CALC (80.0-100.0); MEAN CORPUSCULAR HGB 30.8 pG CALC (26.0-32.0); MONO% 5.6 % (2-13); NEUT# 12.57 thou/uL (1.82-7.42); NEUT% 85.9 % (42-76); RED BLOOD COUNT 4.58 mill/uL (4.70-6.10); RED CELL DISTRI WIDTH 13.5 % (11.5-15.5)
[2023-06-20 00:31] LABS: ALBUMIN 3.5 g/dL (3.2-5.0); ALKALINE PHOSPHATASE 99 u/l (38-126); ANION GAP 8 (6-22 (CALC)); BILIRUBIN, TOTAL 0.6 mg/dL (0.2-1.3); BUN 15 mg/dL (8-23); BUN/CREATININE RATIO 13 (12-20 (CALC)); CHLORIDE 109 mmol/l (95-108); CREATININE 1.2 mg/dL (0.7-1.3); GFR FOR AFR.AMER. > 60 ML/MIN (>=60 (CALC)); GFR OTHER RACES 58 ML/MIN (>=60 (CALC)); SGOT/AST 25 u/l (19-48); SODIUM 142 mmol/l (137-146); TOTAL PROTEIN 5.8 g/dL (6.3-8.2)
[2023-06-20 00:35] LABS: CARBON DIOXIDE 29 mmol/l (22-30)
[2023-06-20] MEDS ORDERED: TAM75CAP PO (01:49)
[2023-06-20] MEDS ORDERED: CARVEDILOL25 MG PO (01:49)
[2023-06-20] MEDS ORDERED: LEVAQUIN750 M1 PO (01:51)
[2023-06-20] MEDS ORDERED: LASIX20 MG PO (01:51)
== END 2023-06-20 03:41 ==
LOC: ED 23:04
PROVIDERS: Family Medicine
DX: J18.9 Pneumonia, unspecified organism (principal); I11.0 Hypertensive heart disease with heart failure; I50.9 Heart failure, unspecified; I48.91 Unspecified atrial fibrillation; F03.90 Unspecified dementia, unspecified severity, without behavioral disturbance, psychotic disturbance, mood disturbance, and anxiety; Z86.79 Personal history of other diseases of the circulatory system; Z87.891 Personal history of nicotine dependence; Z86.73 Personal history of transient ischemic attack (TIA), and cerebral infarction without residual deficits; Z20.822 Contact with and (suspected) exposure to COVID-19
CPT/HCPCS: J1160

== ENCOUNTER 2024-06-25 18:32 | Inpatient (IN) | payer MEDICARE, OTHER ==
[~2024-06-25] VITALS: Ht 172.7 cm; Wt 75.4 kg
[2024-06-25] VITALS (12 sets, daily range): BP systolic 85–164; BP diastolic 48–103
[~2024-06-25 18:32] MED LIST changes: +LASIX20 MG PO; +LEVAQUIN750 M1 PO; +TAM75CAP PO
[2024-06-25] MEDS ORDERED: methylPREDNISolone SODIUM SUCC 125 MG/2 ML SDV IV ONE (18:45)
[2024-06-25] MEDS ORDERED: DILTIAZEM HCL 125 MG in SODIUM CHLORIDE 0.9% 100 ML IV ONE (18:45)
[2024-06-25] MEDS ORDERED: DOXYCYCLINE HYCLATE 100 MG in SODIUM CHLORIDE 0.9% 100 ML IV ONE (18:45)
[2024-06-25] MEDS ORDERED: IPRATROPIUM-Albuterol 0.5MG-2.5MG/3 ML NEB ONE ×2 (18:45)
[2024-06-25] MEDS ORDERED: cefTRIAXone SODIUM 2 GM in SODIUM CHLORIDE 0.9% 100 ML IV ONE (18:45)
[2024-06-25] MEDS ORDERED: SODIUM CHLORIDE 0.9% 1,000 ML IV ONE (18:45)
[2024-06-25] MEDS ORDERED: dilTIAZem HCL 50 MG/10 ML SDV IV ONE (18:45)
[2024-06-25] MEDS ORDERED: SODIUM CHLORIDE 0.9% 250 ML IV PRN (19:00)
[2024-06-25] MEDS ORDERED: LEVALBUTEROL HCL 1.25 MG/3 ML VIAL NEB ONE (19:05)
[2024-06-25 19:08] LABS: BASO% 0.7 % (0-3); EOS% 6.1 % (0-8); HEMATOCRIT 44.7 % (39.0-50.0); HEMOGLOBIN 14.9 g/dl (14.0-18.0); IMMATURE GRANULOCYTES 0.3 % (0.0-5.0); LYMPH% 11.3 % (15-41); MEAN CELL VOLUME 93.5 fL CALC (80.0-100.0); MEAN CORPUSCULAR HGB 31.2 pG CALC (26.0-32.0); MEAN CORPUSCULAR HGB CONC 33.3 g/dL CAL (32.0-36.0); MONO% 7.6 % (2-13); NEUT# 5.43 thou/uL (1.82-7.42); RED BLOOD COUNT 4.78 mill/uL (4.70-6.10); RED CELL DISTRI WIDTH 12.9 % (11.5-15.5)
[2024-06-25 19:17] LABS: ALBUMIN 3.6 g/dL (3.2-5.0); ALKALINE PHOSPHATASE 125 u/l (38-126); ANION GAP 12 (6-22 (CALC)); BUN 16 mg/dL (8-23); BUN/CREATININE RATIO 15 (12-20 (CALC)); CARBON DIOXIDE 27 mmol/l (22-30); CHLORIDE 107 mmol/l (95-108); CREATININE 1.1 mg/dL (0.7-1.3); ESTIMATED GFR 68 ML/MIN (>=90 (CALC)); POTASSIUM 3.9 mmol/l (3.5-5.1); SGOT/AST 24 u/l (19-48); SODIUM 141 mmol/l (137-146); TOTAL PROTEIN 6.6 g/dL (6.3-8.2)
[2024-06-25 19:21] LABS: BILIRUBIN, TOTAL 1.5 mg/dL (0.2-1.3)
[2024-06-25] MEDS ORDERED: FUROSEMIDE 40 MG/4 ML SDV IV ONE (20:45)
[2024-06-25] MEDS ORDERED: METOPROLOL TARTRATE 5 MG/5 ML VIAL IV PRN (21:00)
[2024-06-25] MEDS ORDERED: ACETAMINOPHEN 325 MG/TAB PO PRN (21:00)
[2024-06-25] MEDS ORDERED: ONDANSETRON 4 MG/TAB ODT SL PRN (21:00)
[2024-06-25] MEDS ORDERED: Polyethylene Glycol 3350 17 GM/PKT PO PRN (21:00)
[2024-06-25] MEDS ORDERED: ZITHROMAX250 MG PO (21:16)
[2024-06-25] MEDS ORDERED: PREDNISONE10 MG PO (21:17)
[2024-06-25] MEDS ORDERED: LEVALBUTEROL HCL 1.25 MG/3 ML VIAL IN SCH (22:00)
[2024-06-25] MEDS ORDERED: methylPREDNISolone Sod Succ 40 MG/ML SDV IV SCH (22:00)
[2024-06-25] MEDS ORDERED: IPRATROPIUM-Albuterol 0.5MG-2.5MG/3 ML NEB SCH (23:00)
[2024-06-26] VITALS (31 sets, daily range): BP systolic 79–122; BP diastolic 41–78
[2024-06-26 01:11] LABS: URINE BILIRUBIN - DIPSTICK Negative (NEGATIVE); URINE BLOOD DIPSTICK Negative (NEGATIVE); URINE COLOR Yellow; URINE GLUCOSE - DIPSTICK Negative (NEGATIVE); URINE KETONE 15 mg/dL (NEGATIVE); URINE LEUK ESTERASE Negative (NEGATIVE); URINE NITRITE - DIPSTICK Negative (Negative); URINE PROTEIN - DIPSTICK Negative (NEG-TRACE); URINE SPECIFIC GRAVITY 1.015
[2024-06-26 05:22] LABS: BASO% 0.6 % (0-3); EOS% 0.3 % (0-8); HEMATOCRIT 41.4 % (39.0-50.0); HEMOGLOBIN 14.1 g/dl (14.0-18.0); IMMATURE GRANULOCYTES 0.3 % (0.0-5.0); MEAN CELL VOLUME 95.8 fL CALC (80.0-100.0); MEAN CORPUSCULAR HGB 32.6 pG CALC (26.0-32.0); MEAN CORPUSCULAR HGB CONC 34.1 g/dL CAL (32.0-36.0); MONO% 2.3 % (2-13); NEUT# 2.56 thou/uL (1.82-7.42); NEUT% 82.9 % (42-76); RED BLOOD COUNT 4.32 mill/uL (4.70-6.10); RED CELL DISTRI WIDTH 12.8 % (11.5-15.5)
[2024-06-26 05:30] LABS: BILIRUBIN, TOTAL 1.2 mg/dL (0.2-1.3); CREATININE 1.1 mg/dL (0.7-1.3); POTASSIUM 3.7 mmol/l (3.5-5.1); TOTAL PROTEIN 5.4 g/dL (6.3-8.2)
[2024-06-26 05:47] LABS: ALBUMIN 2.8 g/dL (3.2-5.0)
[2024-06-26 05:51] LABS: LYMPH% 13.6 % (15-41)
[2024-06-26] MEDS ORDERED: CEFEPIME HYDROCHLORIDE 2 GM in SODIUM CHLORIDE 0.9% 100 ML IV SCH (06:00)
[2024-06-26] MEDS ORDERED: DOXYCYCLINE HYCLATE 100 MG in SODIUM CHLORIDE 0.9% 100 ML IV SCH ×2 (06:00→18:30)
[2024-06-26] MEDS ORDERED: ENOXAPARIN SODIUM 40 MG/0.4 ML SYR SC SCH (21:00)
[2024-06-26] MEDS ORDERED: CARVEDILOL 25 MG/TAB PO SCH (21:34)
[2024-06-26] MEDS ORDERED: LASIX 40 MG TAB40 MG PO (21:44)
[2024-06-27] VITALS (25 sets, daily range): BP systolic 82–126; BP diastolic 44–78
[2024-06-27 05:19] LABS: HEMATOCRIT 41.8 % (39.0-50.0); MEAN CELL VOLUME 92.9 fL CALC (80.0-100.0); MEAN CORPUSCULAR HGB 31.1 pG CALC (26.0-32.0); MEAN CORPUSCULAR HGB CONC 33.5 g/dL CAL (32.0-36.0); RED BLOOD COUNT 4.5 mill/uL (4.70-6.10); RED CELL DISTRI WIDTH 12.9 % (11.5-15.5)
[2024-06-27 05:40] LABS: CREATININE 0.9 mg/dL (0.7-1.3); MAGNESIUM 2.2 mg/dL (1.6-2.3); POTASSIUM 3.6 mmol/l (3.5-5.1); TOTAL PROTEIN 5.5 g/dL (6.3-8.2)
[2024-06-27] MEDS ORDERED: LEVOTHYROXINE SODIUM 25 MCG/TAB PO SCH (06:00)
[2024-06-27] MEDS ORDERED: APIXABAN BASE 5 MG TAB PO SCH (09:00)
[2024-06-27] MEDS ORDERED: ESCITALOPRAM 10 MG/TAB PO SCH (09:00)
[2024-06-27] MEDS ORDERED: FUROSEMIDE 40 MG/TAB PO SCH (09:00)
[2024-06-27] MEDS ORDERED: CARVEDILOL 25 MG/TAB PO SCH (09:00)
[2024-06-27] MEDS ORDERED: traZODone HCL 50 MG/TAB PO SCH ×2 (21:00)
[2024-06-28] VITALS (20 sets, daily range): BP systolic 93–123; BP diastolic 57–77
[2024-06-28 05:52] LABS: HEMATOCRIT 39.4 % (39.0-50.0); HEMOGLOBIN 13.1 g/dl (14.0-18.0); MEAN CELL VOLUME 95.4 fL CALC (80.0-100.0); MEAN CORPUSCULAR HGB 31.7 pG CALC (26.0-32.0); MEAN CORPUSCULAR HGB CONC 33.2 g/dL CAL (32.0-36.0); RED BLOOD COUNT 4.13 mill/uL (4.70-6.10); RED CELL DISTRI WIDTH 12.9 % (11.5-15.5)
[2024-06-28 06:06] LABS: ALBUMIN 2.8 g/dL (3.2-5.0); BILIRUBIN, TOTAL 0.9 mg/dL (0.2-1.3); MAGNESIUM 2.2 mg/dL (1.6-2.3); TOTAL PROTEIN 5.3 g/dL (6.3-8.2)
[2024-06-29] VITALS (12 sets, daily range): BP systolic 96–132; BP diastolic 67–116
[2024-06-29 04:41] LABS: HEMATOCRIT 36.8 % (39.0-50.0); HEMOGLOBIN 12.4 g/dl (14.0-18.0); MEAN CELL VOLUME 93.9 fL CALC (80.0-100.0); MEAN CORPUSCULAR HGB 31.6 pG CALC (26.0-32.0); MEAN CORPUSCULAR HGB CONC 33.7 g/dL CAL (32.0-36.0); RED BLOOD COUNT 3.92 mill/uL (4.70-6.10)
[2024-06-29 04:59] LABS: ALBUMIN 2.6 g/dL (3.2-5.0); BILIRUBIN, TOTAL 0.7 mg/dL (0.2-1.3); MAGNESIUM 2.3 mg/dL (1.6-2.3); POTASSIUM 3.9 mmol/l (3.5-5.1); TOTAL PROTEIN 5.1 g/dL (6.3-8.2)
[2024-06-29] MEDS ORDERED: LEVOFLOXACIN750 MG PO (07:00)
[2024-06-29] MEDS ORDERED: methylPREDNISolone Sod Succ 40 MG/ML SDV IV SCH (09:00)
== END 2024-06-29 12:30 | DRG 193 ==
LOC: ED 18:32 → ED-I 19:00 → ED 21:04 → ICU 21:05
PROVIDERS: Family Medicine; Internal Medicine; ADMIT Internal Medicine; ATTEND Internal Medicine
DX: J18.9 Pneumonia, unspecified organism (principal); J96.01 Acute respiratory failure with hypoxia; J44.1 Chronic obstructive pulmonary disease with (acute) exacerbation; J44.0 Chronic obstructive pulmonary disease with (acute) lower respiratory infection; I11.0 Hypertensive heart disease with heart failure; I50.9 Heart failure, unspecified; I48.91 Unspecified atrial fibrillation; F03.90 Unspecified dementia, unspecified severity, without behavioral disturbance, psychotic disturbance, mood disturbance, and anxiety; E78.5 Hyperlipidemia, unspecified; Z86.73 Personal history of transient ischemic attack (TIA), and cerebral infarction without residual deficits; Z85.819 Personal history of malignant neoplasm of unspecified site of lip, oral cavity, and pharynx; Z92.21 Personal history of antineoplastic chemotherapy; Z92.3 Personal history of irradiation; Z79.01 Long term (current) use of anticoagulants; Z87.01 Personal history of pneumonia (recurrent); Z87.891 Personal history of nicotine dependence; Z20.822 Contact with and (suspected) exposure to COVID-19
CPT/HCPCS: J0692; J0696; J1940

== ENCOUNTER 2024-07-18 09:29 | Inpatient (IN) | payer MEDICARE, OTHER ==
[2024-07-18] VITALS (144 sets, daily range): BP systolic 60–243; BP diastolic 35–124
[~2024-07-18] VITALS: Ht 172.7 cm; Wt 81.7 kg
[~2024-07-18 09:29] MED LIST changes: +LASIX 40 MG TAB40 MG PO; +LEVOFLOXACIN750 MG PO
[2024-07-18] MEDS ORDERED: VANCOMYCIN HCL 1 GM in SODIUM CHLORIDE 0.9% 500 ML IV ONE (09:45)
[2024-07-18] MEDS ORDERED: PIPERACILLIN Sodium-Tazobactam 3.375 GM in SODIUM CHLORIDE 0.9% 100 ML IV ONE (09:45)
[2024-07-18] MEDS ORDERED: SODIUM CHLORIDE 0.9% 250 ML IV PRN ×3 (10:00→13:55)
[2024-07-18] MEDS ORDERED: SODIUM CHLORIDE 0.9% 1,000 ML IV ONE ×2 (10:00)
[2024-07-18] MEDS ORDERED: NOREPINEPHRINE BITARTRATE 4 MG in DEXTROSE 5% 250 ML IV ONE ×2 (10:00→13:55)
[2024-07-18 10:09] LABS: BASO% 0.3 % (0-3); EOS% 0.8 % (0-8); HEMATOCRIT 43.3 % (39.0-50.0); HEMOGLOBIN 14.1 g/dl (14.0-18.0); IMMATURE GRANULOCYTES 0.3 % (0.0-5.0); LYMPH% 3.5 % (15-41); MEAN CELL VOLUME 96.7 fL CALC (80.0-100.0); MEAN CORPUSCULAR HGB 31.5 pG CALC (26.0-32.0); MEAN CORPUSCULAR HGB CONC 32.6 g/dL CAL (32.0-36.0); MONO% 5.7 % (2-13); NEUT# 10.41 thou/uL (1.82-7.42); NEUT% 89.4 % (42-76); RED BLOOD COUNT 4.48 mill/uL (4.70-6.10); RED CELL DISTRI WIDTH 14.2 % (11.5-15.5)
[2024-07-18 10:23] LABS: ALBUMIN 2.9 g/dL (3.2-5.0); CREATININE 1.6 mg/dL (0.7-1.3); POTASSIUM 4.5 mmol/l (3.5-5.1); TOTAL PROTEIN 5.4 g/dL (6.3-8.2)
[2024-07-18] MEDS ORDERED: dilTIAZem HCL 50 MG/10 ML SDV IV ONE (10:40)
[2024-07-18] MEDS ORDERED: DILTIAZEM HCL 125 MG in SODIUM CHLORIDE 0.9% 100 ML IV ONE (10:40)
[2024-07-18 10:41] LABS: URINE BLOOD DIPSTICK Trace-intact (NEGATIVE); URINE GLUCOSE - DIPSTICK 100 mg/dL (NEGATIVE); URINE KETONE 15 mg/dL (NEGATIVE); URINE LEUK ESTERASE Negative (NEGATIVE); URINE PROTEIN - DIPSTICK >=300 mg/dL (NEG-TRACE); URINE SPECIFIC GRAVITY 1.025; URINE UROBILINOGEN - DIPSTICK >=8.0 E.U./dL (0.2)
[2024-07-18 10:44] LABS: URINE COLOR Brown; URINE NITRITE - DIPSTICK Positive (Negative)
[2024-07-18] MEDS ORDERED: ASPIRIN 81 MG/TAB PO ONE (10:50)
[2024-07-18 10:55] LABS: URINE RBC 0-2 RBC/hpf (0-5)
[2024-07-18 10:56] LABS: URINE BACTERIA FEW hpf; URINE HYALINE CAST FEW lpf (NONE-RARE); URINE SQUAMOUS EPITHELIAL CELL RARE EPI/hpf (0-FEW)
[2024-07-18] MEDS ORDERED: IPRATROPIU0.5 MG/3 M IN (13:05)
[2024-07-18] MEDS ORDERED: ACETAMINOPHEN 325 MG/TAB PO PRN (13:35)
[2024-07-18] MEDS ORDERED: MAGNESIUM HYDROXIDE 30 ML UDC PO PRN (13:35)
[2024-07-18] MEDS ORDERED: SODIUM CHLORIDE 0.9% 1,000 ML IV PRN ×2 (13:35→17:55)
[2024-07-18] MEDS ORDERED: IPRATROPIUM-Albuterol 0.5MG-2.5MG/3 ML NEB PRN (13:40)
[2024-07-18] MEDS ORDERED: METOPROLOL TARTRATE 5 MG/5 ML VIAL IV SCH (14:50)
[2024-07-18] MEDS ORDERED: NOREPINEPHRINE BITARTRATE 4 MG in DEXTROSE 5% 250 ML IV PRN (16:35)
[2024-07-18] MEDS ORDERED: CARVEDILOL 25 MG/TAB PO SCH (17:00)
[2024-07-18] MEDS ORDERED: PIPERACILLIN Sodium-Tazobactam 3.375 GM in SODIUM CHLORIDE 0.9% 100 ML IV SCH (18:00)
[2024-07-18] MEDS ORDERED: methylPREDNISolone Sod Succ 40 MG/ML SDV IV SCH (21:00)
[2024-07-18] MEDS ORDERED: traZODone HCL 50 MG/TAB PO SCH (21:00)
[2024-07-18] MEDS ORDERED: APIXABAN BASE 5 MG TAB PO SCH (21:00)
[2024-07-19] VITALS (101 sets, daily range): BP systolic 45–124; BP diastolic 11–93
[2024-07-19 05:52] LABS: MEAN CELL VOLUME 97.1 fL CALC (80.0-100.0); MEAN CORPUSCULAR HGB 31.8 pG CALC (26.0-32.0); MEAN CORPUSCULAR HGB CONC 32.8 g/dL CAL (32.0-36.0); RED BLOOD COUNT 3.74 mill/uL (4.70-6.10); RED CELL DISTRI WIDTH 14.4 % (11.5-15.5)
[2024-07-19] MEDS ORDERED: LEVOTHYROXINE SODIUM 25 MCG/TAB PO SCH (06:00)
[2024-07-19 06:10] LABS: CREATININE 1.3 mg/dL (0.7-1.3); MAGNESIUM 1.8 mg/dL (1.6-2.3); POTASSIUM 3.6 mmol/l (3.5-5.1); TOTAL PROTEIN 4.6 g/dL (6.3-8.2)
[2024-07-19 06:12] LABS: ALBUMIN 2.3 g/dL (3.2-5.0); BILIRUBIN, TOTAL 2.1 mg/dL (0.2-1.3); HEMATOCRIT 36.3 % (39.0-50.0); HEMOGLOBIN 11.9 g/dl (14.0-18.0)
[2024-07-19] MEDS ORDERED: ESCITALOPRAM 10 MG/TAB PO SCH (09:00)
[2024-07-19] MEDS ORDERED: amioDARONE HCl 450 MG in SODIUM CHLORIDE 250 ML IV PRN (20:25)
[2024-07-19] MEDS ORDERED: SODIUM CHLORIDE 500 ML BTL IR ONE (23:14)
[2024-07-19 23:39] LABS: HEMOGLOBIN 11.8 g/dl (14.0-18.0)
[2024-07-20] VITALS (67 sets, daily range): BP systolic 78–118; BP diastolic 47–99
[2024-07-20] MEDS ORDERED: SODIUM CHLORIDE 3,000 ML BAG FOR IRRIGATION IR PRN (00:50)
[2024-07-20 05:44] LABS: HEMOGLOBIN 11.2 g/dl (14.0-18.0); MEAN CELL VOLUME 96.6 fL CALC (80.0-100.0); MEAN CORPUSCULAR HGB 31.8 pG CALC (26.0-32.0); MEAN CORPUSCULAR HGB CONC 32.9 g/dL CAL (32.0-36.0); RED BLOOD COUNT 3.52 mill/uL (4.70-6.10); RED CELL DISTRI WIDTH 14.5 % (11.5-15.5)
[2024-07-20 06:11] LABS: ALBUMIN 2.4 g/dL (3.2-5.0); BILIRUBIN, TOTAL 1.8 mg/dL (0.2-1.3); CREATININE 1.3 mg/dL (0.7-1.3); POTASSIUM 3.6 mmol/l (3.5-5.1); TOTAL PROTEIN 4.6 g/dL (6.3-8.2)
[2024-07-21] VITALS (57 sets, daily range): BP systolic 43–110; BP diastolic 27–90
[2024-07-21 05:41] LABS: HEMATOCRIT 32.9 % (39.0-50.0); HEMOGLOBIN 10.8 g/dl (14.0-18.0); MEAN CELL VOLUME 98.2 fL CALC (80.0-100.0); MEAN CORPUSCULAR HGB 32.2 pG CALC (26.0-32.0); MEAN CORPUSCULAR HGB CONC 32.8 g/dL CAL (32.0-36.0); RED BLOOD COUNT 3.35 mill/uL (4.70-6.10); RED CELL DISTRI WIDTH 14.4 % (11.5-15.5)
[2024-07-21 05:56] LABS: ALBUMIN 2.4 g/dL (3.2-5.0); BILIRUBIN, TOTAL 1.6 mg/dL (0.2-1.3); CREATININE 1.3 mg/dL (0.7-1.3); MAGNESIUM 2.2 mg/dL (1.6-2.3); POTASSIUM 3.6 mmol/l (3.5-5.1); TOTAL PROTEIN 4.6 g/dL (6.3-8.2)
[2024-07-21] MEDS ORDERED: HYDROmorphone HCL 2 MG/AMP IV PRN (20:35)
[2024-07-22] VITALS (26 sets, daily range): BP systolic 81–121; BP diastolic 47–86
[2024-07-22 05:14] LABS: HEMATOCRIT 33.1 % (39.0-50.0); HEMOGLOBIN 10.7 g/dl (14.0-18.0); MEAN CELL VOLUME 99.7 fL CALC (80.0-100.0); MEAN CORPUSCULAR HGB 32.2 pG CALC (26.0-32.0); MEAN CORPUSCULAR HGB CONC 32.3 g/dL CAL (32.0-36.0); RED BLOOD COUNT 3.32 mill/uL (4.70-6.10); RED CELL DISTRI WIDTH 14.8 % (11.5-15.5)
[2024-07-22 05:52] LABS: ALBUMIN 2.4 g/dL (3.2-5.0); BILIRUBIN, TOTAL 1.2 mg/dL (0.2-1.3); CREATININE 1.3 mg/dL (0.7-1.3); MAGNESIUM 2.3 mg/dL (1.6-2.3); POTASSIUM 3.9 mmol/l (3.5-5.1); TOTAL PROTEIN 4.8 g/dL (6.3-8.2)
[2024-07-23] VITALS (24 sets, daily range): BP systolic 107–136; BP diastolic 72–95
[2024-07-23 04:08] LABS: HEMATOCRIT 33.1 % (39.0-50.0); HEMOGLOBIN 10.9 g/dl (14.0-18.0); IMMATURE GRANULOCYTES 1.2 % (0.0-5.0); LYMPH% 3.7 % (15-41); MEAN CELL VOLUME 98.5 fL CALC (80.0-100.0); MEAN CORPUSCULAR HGB 32.4 pG CALC (26.0-32.0); MEAN CORPUSCULAR HGB CONC 32.9 g/dL CAL (32.0-36.0); NEUT# 4.38 thou/uL (1.82-7.42); NEUT% 91.1 % (42-76); RED BLOOD COUNT 3.36 mill/uL (4.70-6.10); RED CELL DISTRI WIDTH 14.9 % (11.5-15.5)
[2024-07-23 04:16] LABS: ALBUMIN 2.6 g/dL (3.2-5.0); BILIRUBIN, TOTAL 1.1 mg/dL (0.2-1.3); CREATININE 1.4 mg/dL (0.7-1.3); MAGNESIUM 2.4 mg/dL (1.6-2.3); POTASSIUM 3.7 mmol/l (3.5-5.1)
[2024-07-24] VITALS (39 sets, daily range): BP systolic 96–133; BP diastolic 60–104
[2024-07-24 03:43] LABS: HEMATOCRIT 33.4 % (39.0-50.0); HEMOGLOBIN 10.9 g/dl (14.0-18.0); IMMATURE GRANULOCYTES 0.5 % (0.0-5.0); LYMPH% 4.4 % (15-41); MEAN CELL VOLUME 97.7 fL CALC (80.0-100.0); MEAN CORPUSCULAR HGB 31.9 pG CALC (26.0-32.0); MEAN CORPUSCULAR HGB CONC 32.6 g/dL CAL (32.0-36.0); MONO% 2.7 % (2-13); NEUT# 3.8 thou/uL (1.82-7.42); NEUT% 92.4 % (42-76); RED BLOOD COUNT 3.42 mill/uL (4.70-6.10)
[2024-07-24 03:53] LABS: ALBUMIN 2.4 g/dL (3.2-5.0); CREATININE 1.2 mg/dL (0.7-1.3); MAGNESIUM 2.5 mg/dL (1.6-2.3); POTASSIUM 4.1 mmol/l (3.5-5.1); TOTAL PROTEIN 4.6 g/dL (6.3-8.2)
[2024-07-24] MEDS ORDERED: REMIMAZOLAM BESYLATE 20 MG/VIAL INJ IV ONE (08:28)
[2024-07-24] MEDS ORDERED: FUROSEMIDE 40 MG/4 ML SDV IV SCH (09:00)
[2024-07-24] MEDS ORDERED: SODIUM CHLORIDE 0.9% 1,000 ML IV ONE (10:03)
[2024-07-24] MEDS ORDERED: Levofloxacin 500 mg Premix 100 ML IV ONE (11:03)
[2024-07-24] MEDS ORDERED: SODIUM CHLORIDE 3,000 ML BAG FOR IRRIGATION IR ONE ×2 (13:00→14:41)
[2024-07-24] MEDS ORDERED: STERILE WATER FOR IRRIGATION 500 ML BTL IR ONE (14:41)
[2024-07-24] MEDS ORDERED: GLYCINE IR ONE (14:41)
[2024-07-24] MEDS ORDERED: SODIUM CHLORIDE 1,000 ML BTL IR ONE (14:41)
[2024-07-25] VITALS (32 sets, daily range): BP systolic 79–127; BP diastolic 43–85
[2024-07-25 05:50] LABS: HEMATOCRIT 36.2 % (39.0-50.0); HEMOGLOBIN 11.9 g/dl (14.0-18.0); MEAN CELL VOLUME 96.5 fL CALC (80.0-100.0); MEAN CORPUSCULAR HGB 31.7 pG CALC (26.0-32.0); MEAN CORPUSCULAR HGB CONC 32.9 g/dL CAL (32.0-36.0); RED BLOOD COUNT 3.75 mill/uL (4.70-6.10); RED CELL DISTRI WIDTH 15.3 % (11.5-15.5)
[2024-07-25 06:10] LABS: ALBUMIN 2.5 g/dL (3.2-5.0); BILIRUBIN, TOTAL 1.2 mg/dL (0.2-1.3); MAGNESIUM 2.5 mg/dL (1.6-2.3); POTASSIUM 4.1 mmol/l (3.5-5.1); TOTAL PROTEIN 4.8 g/dL (6.3-8.2)
[2024-07-25] MEDS ORDERED: FUROSEMIDE 40 MG/4 ML SDV IV SCH ×2 (07:30→14:00)
[2024-07-25] MEDS ORDERED: PIPERACILLIN Sodium-Tazobactam 3.375 GM in SODIUM CHLORIDE 0.9% 100 ML IV SCH (18:00)
[2024-07-26] VITALS (21 sets, daily range): BP systolic 63–132; BP diastolic 42–85
[2024-07-26] MEDS ORDERED: SODIUM CHLORIDE 0.9% 1,000 ML IV ONE (01:53)
[2024-07-26] MEDS ORDERED: SODIUM CHLORIDE 0.9% 500 ML BAG IV ONE (01:55)
[2024-07-26] MEDS ORDERED: SODIUM CHLORIDE 0.9% 1,000 ML IV PRN (03:50)
[2024-07-26 05:38] LABS: HEMOGLOBIN 11.2 g/dl (14.0-18.0); MEAN CELL VOLUME 97.7 fL CALC (80.0-100.0); MEAN CORPUSCULAR HGB 32.2 pG CALC (26.0-32.0); MEAN CORPUSCULAR HGB CONC 32.9 g/dL CAL (32.0-36.0); RED BLOOD COUNT 3.48 mill/uL (4.70-6.10); RED CELL DISTRI WIDTH 15.2 % (11.5-15.5)
[2024-07-26 05:56] LABS: ALBUMIN 2.5 g/dL (3.2-5.0); BILIRUBIN, TOTAL 1.3 mg/dL (0.2-1.3); MAGNESIUM 2.5 mg/dL (1.6-2.3); POTASSIUM 4.5 mmol/l (3.5-5.1)
[2024-07-26] MEDS ORDERED: FUROSEMIDE 40 MG/4 ML SDV IV SCH (08:00)
[2024-07-26] MEDS ORDERED: PIPERACILLIN Sodium-Tazobactam 3.375 GM in SODIUM CHLORIDE 0.9% 100 ML IV SCH (09:00)
[2024-07-27] VITALS (25 sets, daily range): BP systolic 101–166; BP diastolic 62–103
[2024-07-27 04:53] LABS: HEMATOCRIT 31.1 % (39.0-50.0); HEMOGLOBIN 10.5 g/dl (14.0-18.0); MEAN CELL VOLUME 94.8 fL CALC (80.0-100.0); MEAN CORPUSCULAR HGB CONC 33.8 g/dL CAL (32.0-36.0); RED BLOOD COUNT 3.28 mill/uL (4.70-6.10); RED CELL DISTRI WIDTH 15.2 % (11.5-15.5)
[2024-07-27 05:02] LABS: ALBUMIN 2.2 g/dL (3.2-5.0); CREATININE 1.2 mg/dL (0.7-1.3); MAGNESIUM 2.4 mg/dL (1.6-2.3); TOTAL PROTEIN 4.3 g/dL (6.3-8.2)
[2024-07-27 05:09] LABS: POTASSIUM 3.3 mmol/l (3.5-5.1)
[2024-07-27] MEDS ORDERED: POTASSIUM CHLORIDE 20 MEQ/TAB PO SCH (09:00)
[2024-07-27] MEDS ORDERED: predniSONE 20 MG/TAB PO SCH (09:00)
[2024-07-27] MEDS ORDERED: METOPROLOL TARTRATE 5 MG/5 ML VIAL IV PRN (12:55)
[2024-07-27] MEDS ORDERED: FUROSEMIDE 40 MG/TAB PO SCH (14:00)
[2024-07-27] MEDS ORDERED: amioDARONE HCl 450 MG in SODIUM CHLORIDE 250 ML IV PRN (18:30)
[2024-07-28] VITALS (26 sets, daily range): BP systolic 103–159; BP diastolic 56–114
[2024-07-28 05:32] LABS: BASO% 0.1 % (0-3); HEMATOCRIT 32.8 % (39.0-50.0); IMMATURE GRANULOCYTES 2.6 % (0.0-5.0); LYMPH% 5.1 % (15-41); MEAN CELL VOLUME 95.3 fL CALC (80.0-100.0); MEAN CORPUSCULAR HGB CONC 33.5 g/dL CAL (32.0-36.0); MONO% 7.7 % (2-13); NEUT# 6.49 thou/uL (1.82-7.42); NEUT% 84.5 % (42-76); RED BLOOD COUNT 3.44 mill/uL (4.70-6.10); RED CELL DISTRI WIDTH 15.5 % (11.5-15.5)
[2024-07-28 05:41] LABS: ALBUMIN 2.4 g/dL (3.2-5.0); MAGNESIUM 2.4 mg/dL (1.6-2.3); POTASSIUM 3.6 mmol/l (3.5-5.1); TOTAL PROTEIN 4.7 g/dL (6.3-8.2)
[2024-07-28] MEDS ORDERED: CARVEDILOL 25 MG/TAB PO SCH (21:00)
[2024-07-28] MEDS ORDERED: METOPROLOL TARTRATE 50 MG/TAB PO SCH (21:00)
[2024-07-28] MEDS ORDERED: dilTIAZem HCL 60 MG/TAB PO SCH (21:00)
[2024-07-28] MEDS ORDERED: GLUCAGON HCL (Rdna) 1 MG VIAL IV ONE (22:35)
[2024-07-28] MEDS ORDERED: GLUCAGON HCL (Rdna) 1 MG VIAL IV SCH (23:40)
[2024-07-29] VITALS (34 sets, daily range): BP systolic 94–141; BP diastolic 53–93
[2024-07-29] MEDS ORDERED: LIDOCAINE HCL 1% (10MG/ML) 100 MG/10 ML MDV ONE (00:42)
[2024-07-29] MEDS ORDERED: SODIUM CHLORIDE 0.9% 10 ML SYR IV PRN (03:05)
[2024-07-29 05:45] LABS: HEMATOCRIT 30.9 % (39.0-50.0); HEMOGLOBIN 10.3 g/dl (14.0-18.0); MEAN CELL VOLUME 96.9 fL CALC (80.0-100.0); MEAN CORPUSCULAR HGB 32.3 pG CALC (26.0-32.0); MEAN CORPUSCULAR HGB CONC 33.3 g/dL CAL (32.0-36.0); RED BLOOD COUNT 3.19 mill/uL (4.70-6.10); RED CELL DISTRI WIDTH 15.4 % (11.5-15.5)
[2024-07-29] MEDS ORDERED: SODIUM CHLORIDE 0.9% 10 ML SYR IV SCH (06:00)
[2024-07-29 06:05] LABS: ALBUMIN 2.3 g/dL (3.2-5.0); BILIRUBIN, TOTAL 1.4 mg/dL (0.2-1.3); MAGNESIUM 2.4 mg/dL (1.6-2.3); POTASSIUM 3.7 mmol/l (3.5-5.1); TOTAL PROTEIN 4.4 g/dL (6.3-8.2)
[2024-07-30] VITALS (9 sets, daily range): BP systolic 93–133; BP diastolic 62–92
[2024-07-30 05:03] LABS: HEMATOCRIT 32.7 % (39.0-50.0); HEMOGLOBIN 10.7 g/dl (14.0-18.0); MEAN CORPUSCULAR HGB 31.8 pG CALC (26.0-32.0); MEAN CORPUSCULAR HGB CONC 32.7 g/dL CAL (32.0-36.0); RED BLOOD COUNT 3.37 mill/uL (4.70-6.10); RED CELL DISTRI WIDTH 15.6 % (11.5-15.5)
[2024-07-30 05:39] LABS: ALBUMIN 2.5 g/dL (3.2-5.0); BILIRUBIN, TOTAL 1.5 mg/dL (0.2-1.3); CREATININE 0.9 mg/dL (0.7-1.3); MAGNESIUM 2.3 mg/dL (1.6-2.3); POTASSIUM 3.6 mmol/l (3.5-5.1); TOTAL PROTEIN 4.7 g/dL (6.3-8.2)
[2024-07-30] MEDS ORDERED: METOPROLOL TARTRATE 50 MG/TAB PO SCH ×2 (12:00→21:00)
[2024-07-30] MEDS ORDERED: POTASSIUM CHLORIDE 20 MEQ/PKT POWDER PO SCH (13:00)
[2024-07-31] VITALS (7 sets, daily range): BP systolic 87–125; BP diastolic 51–77
[2024-07-31 05:09] LABS: HEMATOCRIT 33.7 % (39.0-50.0); HEMOGLOBIN 11.1 g/dl (14.0-18.0); MEAN CELL VOLUME 96.6 fL CALC (80.0-100.0); MEAN CORPUSCULAR HGB 31.8 pG CALC (26.0-32.0); MEAN CORPUSCULAR HGB CONC 32.9 g/dL CAL (32.0-36.0); RED BLOOD COUNT 3.49 mill/uL (4.70-6.10)
[2024-07-31 05:17] LABS: ALBUMIN 2.5 g/dL (3.2-5.0); BILIRUBIN, TOTAL 1.3 mg/dL (0.2-1.3); MAGNESIUM 2.4 mg/dL (1.6-2.3); TOTAL PROTEIN 4.9 g/dL (6.3-8.2)
[2024-08-01] VITALS (7 sets, daily range): BP systolic 90–112; BP diastolic 55–75
[2024-08-01 04:43] LABS: BASO% 0.1 % (0-3); EOS% 0.4 % (0-8); HEMATOCRIT 32.8 % (39.0-50.0); HEMOGLOBIN 10.8 g/dl (14.0-18.0); IMMATURE GRANULOCYTES 1.8 % (0.0-5.0); LYMPH% 6.1 % (15-41); MEAN CELL VOLUME 97.6 fL CALC (80.0-100.0); MEAN CORPUSCULAR HGB 32.1 pG CALC (26.0-32.0); MEAN CORPUSCULAR HGB CONC 32.9 g/dL CAL (32.0-36.0); MONO% 8.1 % (2-13); NEUT# 11.71 thou/uL (1.82-7.42); NEUT% 83.5 % (42-76); RED BLOOD COUNT 3.36 mill/uL (4.70-6.10); RED CELL DISTRI WIDTH 16.4 % (11.5-15.5)
[2024-08-01 04:45] LABS: ALBUMIN 2.5 g/dL (3.2-5.0); CREATININE 1.1 mg/dL (0.7-1.3); MAGNESIUM 2.5 mg/dL (1.6-2.3); POTASSIUM 4.3 mmol/l (3.5-5.1); TOTAL PROTEIN 4.7 g/dL (6.3-8.2)
[2024-08-01] MEDS ORDERED: LOPRESSOR 550 MG/TAB PO (12:26)
== END 2024-08-01 14:26 | DRG 853 ==
LOC: ED 09:29 → ED-I 12:46 → ED 12:58 → ICU 12:59 → ED-I 12:59 → MS2 07-26 16:15 → ED-I 07-27 18:00 → MS2 07-29 17:41
PROVIDERS: Family Medicine; Internal Medicine; Nurse Practitioner Family; ADMIT Internal Medicine; ATTEND Internal Medicine
PROC: 06HY33Z Insertion of Infusion Device into Lower Vein, Percutaneous Approach (ICD-10-PCS; principal; 2024-07-18)
PROC: 3E033XZ Introduction of Vasopressor into Peripheral Vein, Percutaneous Approach (ICD-10-PCS; 2024-07-18)
PROC: 5A09357 Assistance with Respiratory Ventilation, Less than 24 Consecutive Hours, Continuous Positive Airway Pressure (ICD-10-PCS; 2024-07-18)
PROC: 0T9B70Z Drainage of Bladder with Drainage Device, Via Natural or Artificial Opening (ICD-10-PCS; 2024-07-19)
PROC: 0W3R8ZZ Control Bleeding in Genitourinary Tract, Via Natural or Artificial Opening Endoscopic (ICD-10-PCS; 2024-07-24)
PROC: 0TCB8ZZ Extirpation of Matter from Bladder, Via Natural or Artificial Opening Endoscopic (ICD-10-PCS; 2024-07-24)
PROC: 02HV33Z Insertion of Infusion Device into Superior Vena Cava, Percutaneous Approach (ICD-10-PCS; 2024-07-29)
DX: A41.9 Sepsis, unspecified organism (principal); J69.0 Pneumonitis due to inhalation of food and vomit; R65.21 Severe sepsis with septic shock; N17.9 Acute kidney failure, unspecified; E87.20 Acidosis, unspecified; I50.32 Chronic diastolic (congestive) heart failure; I13.0 Hypertensive heart and chronic kidney disease with heart failure and stage 1 through stage 4 chronic kidney disease, or unspecified chronic kidney disease; I24.89 Other forms of acute ischemic heart disease; I95.9 Hypotension, unspecified; I48.91 Unspecified atrial fibrillation; D50.0 Iron deficiency anemia secondary to blood loss (chronic); N42.1 Congestion and hemorrhage of prostate; R00.1 Bradycardia, unspecified; T46.1X5A Adverse effect of calcium-channel blockers, initial encounter; N18.9 Chronic kidney disease, unspecified; F03.90 Unspecified dementia, unspecified severity, without behavioral disturbance, psychotic disturbance, mood disturbance, and anxiety; E78.5 Hyperlipidemia, unspecified; F32.A Depression, unspecified; Z86.73 Personal history of transient ischemic attack (TIA), and cerebral infarction without residual deficits; Z92.21 Personal history of antineoplastic chemotherapy; Z87.01 Personal history of pneumonia (recurrent); Z85.819 Personal history of malignant neoplasm of unspecified site of lip, oral cavity, and pharynx; Z92.3 Personal history of irradiation; Z86.79 Personal history of other diseases of the circulatory system; Z87.891 Personal history of nicotine dependence; Z79.01 Long term (current) use of anticoagulants; Z20.822 Contact with and (suspected) exposure to COVID-19
CPT/HCPCS: J0282; J1171; J1265; J1610; J1940; J1956; J2020; J2249; J2543; J3370

== ENCOUNTER 2024-08-08 16:53 | Inpatient (IN) | payer MEDICARE, OTHER ==
[~2024-08-08] VITALS: Ht 172.7 cm; Wt 70.1 kg
[~2024-08-08 16:53] MED LIST changes: +LOPRESSOR 550 MG/TAB PO
--- NOTE | 2024-08-08 17:16 | NUR ---
PT BROUGHT OVER FROM [facility] A DIRECT ADMIT VIA WHEELCHAIR. PT IS A&O TO SELF AND PLACE. ON 2L NC. PTS PERSONAL WHEELCHAIR AT BEDSIDE. CELESTIN IN PLACE W/ DARK RED URINE. ALL NEEDS ADDRESSED AT THIS TIME. CALL LIGHT WITHIN REACH.
[2024-08-08 17:26] VITALS: BP 133/77
[2024-08-08 17:29] VITALS: BP 114/72
[2024-08-08] MEDS ORDERED: SODIUM CHLORIDE 3,000 ML BAG FOR IRRIGATION IR PRN (17:45)
--- NOTE | 2024-08-08 18:30 | NUR ---
CBI STARTED PER ORDERS.
--- NOTE | 2024-08-08 18:40 | NUR ---
RECEIVED REPORT FROM SUNI LOCKHART. PATIENT RESTING WITH EYES OPEN. CBI IN PLACE. ASSUMED CARE OF THE PATIENT.
--- NOTE | 2024-08-08 19:03 | NUR ---
PATIENT RESTING WITH EYES OPEN
[2024-08-08 19:10] VITALS: BP 133/77
--- NOTE | 2024-08-08 20:08 | NUR ---
ASSISTED PATIENT WITH TELEVISION. PATIENT RESTED WITH EYES OPEN
--- NOTE | 2024-08-08 21:23 | NUR ---
PATIENT RESTED WITH EYES CLOSED
--- NOTE | 2024-08-08 22:04 | NUR ---
PATIENT RESTING WITH EYES CLOSED
--- NOTE | 2024-08-08 23:41 | NUR ---
PATIENT RESTING WITH EYES OPEN
--- NOTE | 2024-08-09 00:18 | NUR ---
PERFORMED PERICARE WITH TECH. PATIENT CLOSED EYES AFTERWARDS
--- NOTE | 2024-08-09 01:15 | NUR ---
PATIENT RESTING WITH EYES CLOSED
--- NOTE | 2024-08-09 02:02 | NUR ---
PATIENT RESTING WITH EYES CLOSED
--- NOTE | 2024-08-09 03:25 | NUR ---
PLACED RHONA HOSE ON PATIENT. PATIENT RESTED WITH EYES CLOSED AFTER RHONA HOSE PLACED
[2024-08-09 04:00] VITALS: BP 132/77
--- NOTE | 2024-08-09 04:28 | NUR ---
PATIENT RESTING IN BED WITH EYES CLOSED
--- NOTE | 2024-08-09 05:24 | NUR ---
PATIENT RESTING WITH EYES CLOSED
--- NOTE | 2024-08-09 06:02 | NUR ---
PATIENT RESTING WITH EYES CLOSED
[2024-08-09 06:33] VITALS: BP 136/80
[2024-08-09] MEDS ORDERED: MAGNESIUM HYDROXIDE 30 ML UDC PO PRN (07:35)
[2024-08-09] MEDS ORDERED: ACETAMINOPHEN 325 MG/TAB PO PRN (07:35)
[2024-08-09 08:13] LABS: BASO% 0.2 % (0-3); HEMATOCRIT 35.1 % (39.0-50.0); HEMOGLOBIN 11.1 g/dl (14.0-18.0); IMMATURE GRANULOCYTES 0.4 % (0.0-5.0); LYMPH% 13.4 % (15-41); MEAN CELL VOLUME 100.3 fL CALC (80.0-100.0); MEAN CORPUSCULAR HGB 31.7 pG CALC (26.0-32.0); MEAN CORPUSCULAR HGB CONC 31.6 g/dL CAL (32.0-36.0); NEUT# 6.73 thou/uL (1.82-7.42); RED BLOOD COUNT 3.5 mill/uL (4.70-6.10); RED CELL DISTRI WIDTH 16.9 % (11.5-15.5)
[2024-08-09 08:36] LABS: ALBUMIN 2.6 g/dL (3.2-5.0); BILIRUBIN, TOTAL 1.3 mg/dL (0.2-1.3); CREATININE 0.9 mg/dL (0.7-1.3); MAGNESIUM 2.2 mg/dL (1.6-2.3); TOTAL PROTEIN 4.8 g/dL (6.3-8.2)
[2024-08-09 08:38] LABS: POTASSIUM 3.2 mmol/l (3.5-5.1)
--- NOTE | 2024-08-09 08:45 | NUR ---
PT IS FOUND TO BE RESTING IN BED; NO VERY TALKATIVE. PT IS ALERT AND ORIENTED X1-2. PT HAS A CBI; URINE IS A DARK YELLOW. PT CAN MOVE ALL EXTREMITES; X2. PLAN OF CARE WAS REVIEWED; NO FURTHER QUESTIONS AT THIS TIME. CALL LIGHT IS WITHIN REACH; BED ALARM IS ON.
[2024-08-09] MEDS ORDERED: METOPROLOL TARTRATE 50 MG/TAB PO SCH (09:00)
[2024-08-09] MEDS ORDERED: FUROSEMIDE 40 MG/TAB PO SCH (09:00)
--- NOTE | 2024-08-09 09:23 | NUR ---
INFORMED RE: ADMIT AND HE SPOKE TO THE NURSE RE: CBI
[2024-08-09 15:06] VITALS: BP 129/89
[2024-08-09 18:10] VITALS: BP 122/78
[2024-08-09 18:30] VITALS: BP 122/78
--- NOTE | 2024-08-09 19:30 | NUR ---
Received report from Maki. patient will remain on CBI. will clamp at [address] Pierce's order. asked to inform incoming nurse that Dr. Pierce request a phone call at 0900 for assessment of CBI for bleeding. Assumed care of the patient.
[2024-08-09 23:13] VITALS: BP 125/75
[2024-08-10 03:26] VITALS: BP 106/71
[2024-08-10] MEDS ORDERED: LEVOTHYROXINE SODIUM 25 MCG/TAB PO SCH (06:00)
[2024-08-10 07:34] VITALS: BP 123/75
[2024-08-10 07:52] LABS: ALBUMIN 2.6 g/dL (3.2-5.0); BILIRUBIN, TOTAL 1.5 mg/dL (0.2-1.3); CREATININE 0.9 mg/dL (0.7-1.3); MAGNESIUM 2.2 mg/dL (1.6-2.3); POTASSIUM 3.2 mmol/l (3.5-5.1); TOTAL PROTEIN 4.8 g/dL (6.3-8.2)
[2024-08-10 07:56] LABS: HEMATOCRIT 34.7 % (39.0-50.0); HEMOGLOBIN 11.1 g/dl (14.0-18.0); MEAN CELL VOLUME 99.1 fL CALC (80.0-100.0); MEAN CORPUSCULAR HGB 31.7 pG CALC (26.0-32.0); RED BLOOD COUNT 3.5 mill/uL (4.70-6.10); RED CELL DISTRI WIDTH 16.8 % (11.5-15.5)
[2024-08-10 08:47] VITALS: BP 123/75
--- NOTE | 2024-08-10 09:00 | NUR ---
E PT WAS SEEN ON 8AM MORNING SAFETY ROUNDS IN HIS BED RESTING. PT ALERT TO SLEF AT THIS TIME. PT ADMITTIG DX IS HEMATURIA. PT CVI HAS BEEN CLAMP SINCE 7AM URINE THE LIGHTLY HERSON AT THIS TIME. PT IS ON A PUREE DIET AND THICK LIQUIDS. PT HAS NON BLACNHING REDNESS TO HIS BUTTOCKS AND WAS POSITION AT THIS TIME FOR COMFORT. PT CALL LOWE IS AT REACH ALL SAFETY MEASURES IN PLACE.
--- NOTE | 2024-08-10 09:23 | NUR ---
THIS TICKET SALES SUPERVISOR CALL DR. MCALLISTER OFFICE AT HIS REQUEST FOR 9AM. CRISTIANO ANSWERED THE PHONE AND SENT A MESSAGE TO DR. MCALLISTER. PT URINE COLOR AT 9AM IS SLIGHTLY HERSON AFTER CVI HAS BEEN CLAMPPED FOR M2 HR.
--- NOTE | 2024-08-10 09:56 | NUR ---
DR MCALLISTER CALL BACK GAVE VERBAL ORDERS TO REMOVE PT CELESTIN AND PREPARE HIM FOR DISCHARGE TO HIS SNF. PT CELESTIN WAS REMOVED NO BLEEDING NOTED AT THIS TIME. ALL SAFETY MEASURED IN PLACE.
[2024-08-10] MEDS ORDERED: KEFLEX500 MG PO (12:48)
[2024-08-10] MEDS ORDERED: POTASSIUM CHLORIDE 20 MEQ/TAB PO SCH (13:00)
--- NOTE | 2024-08-10 13:27 | NUR ---
PT IS ALERT TO SELF. PT INDWELLING WAS REMOVED AROUND 9;30AZM POESTEFANY MCALLISTER PT HAD LARGE AMOUNT OF VOID IN HIS BRIEF. PT HAS RECIEVED ALL HIS MEDICATION AND IV ABT THIS MORNING. PT HAS A NEW ORDER FOR DISCHARGE BACK TO HIS SNF THIS AFTERNOON. ALL SAFETY MEASURES IN PLACE.
== END 2024-08-10 14:38 | DRG 696 ==
LOC: MS2 16:53
PROVIDERS: Nurse Practitioner Family; ADMIT Internal Medicine; ATTEND Internal Medicine
DX: R31.9 Hematuria, unspecified (principal); D68.32 Hemorrhagic disorder due to extrinsic circulating anticoagulants; T45.515A Adverse effect of anticoagulants, initial encounter; I11.0 Hypertensive heart disease with heart failure; I50.9 Heart failure, unspecified; I48.91 Unspecified atrial fibrillation; J44.9 Chronic obstructive pulmonary disease, unspecified; E78.5 Hyperlipidemia, unspecified; G30.9 Alzheimer's disease, unspecified; F02.80 Dementia in other diseases classified elsewhere, unspecified severity, without behavioral disturbance, psychotic disturbance, mood disturbance, and anxiety; Z85.819 Personal history of malignant neoplasm of unspecified site of lip, oral cavity, and pharynx; Z87.891 Personal history of nicotine dependence; Z87.01 Personal history of pneumonia (recurrent); Z79.01 Long term (current) use of anticoagulants; Z96.0 Presence of urogenital implants; Z86.73 Personal history of transient ischemic attack (TIA), and cerebral infarction without residual deficits
CPT/HCPCS: J0696